=== PATIENT | male | born 1950 | race Hispanic/Latino ===

== ENCOUNTER 2021-02-02 15:56 | Emergency (ER) | payer MEDICARE, OTHER ==
--- NOTE | 2021-02-02 16:45 | Emergency Department Report ---
ED General Adult HPI - General Chief complaint: Dyspnea/Respdistress Stated complaint: LOW OXYGEN PUI?: No Time Seen by Provider: 02/02/21 16:15 Source: family Mode of arrival: Ambulatory Limitations: No Limitations, Other - History of Present Illness Initial comments: Patient is a 70-year-old male who presents emergency room with his correctional officer for low oxygen. Patient's correctional officer at bedside at all times. Patient is unable to answer questions or provide information due to his medical problems. Patient has history of dementia. Patient's correctional officer states that he has a small finger pulse oximetry that was reading 82%. Patient has retractions of his fingers which makes it difficult for the correctional officer to obtain an accurate pulse ox. Patient's pulse ox has been 99% to 800% while in the ER. Patient's correctional officer states he was brought in by EMS and EMS was unable to get their pulse ox on his finger due to his retractions. The correctional officer then called the patient's primary care and the primary care advised him to come to the local ER. Metal Solderer states that the patient is not having any shortness of breath or difficulties breathing. Metal Solderer denies recent travel And denies recent international travel. Metal Solderer denies exposure to the novel coronavirus. Metal Solderer denies sick contacts. Metal Solderer denies fever and chills. Metal Solderer denies cough. Metal Solderer denies diarrhea. Metal Solderer denies coming in contact with anybody with symptoms of the novel coronavirus. -: Sudden - Related Data Allergies Allergy/AdvReac Type Severity Reaction Status Date / Time hydralazine Allergy Vomiting Verified 02/02/21 15:58 tramadol Allergy Shortness Verified 02/02/21 15:58 of Breath ED Review of Systems ROS: Stated complaint: LOW OXYGEN Other details as noted in HPI Comment: Unobtainable due to pts medical conditions ED Past Medical Hx - Past Medical History Previous Medical History?: Yes Hx Hypertension: Yes Hx CVA: No Hx Congestive Heart Failure: Yes Hx Diabetes: Yes Hx Deep Vein Thrombosis: No Hx Arthritis: Yes (gout) Hx Seizures: No Hx Asthma: No Additional medical history: A FIB/CKD /LYMPATHIC EDEMA/NEUROPATHY/ ULCER DEMENTIA - Surgical History Past Surgical History?: No - Family History Family history: no significant - Social History Smoking Status: Never Smoker Substance Use Type: Alcohol ED Physical Exam - General Limitations: Altered Mental Status, Physical Limitation, Other General appearance: alert, in no apparent distress - Head Head exam: Present: atraumatic, normocephalic - Eye Eye exam: Present: normal appearance - ENT ENT exam: Present: mucous membranes moist - Neck Neck exam: Present: normal inspection - Respiratory Respiratory exam: Present: normal lung sounds bilaterally. Absent: respiratory distress - Cardiovascular Cardiovascular Exam: Present: regular rate, normal rhythm. Absent: systolic murmur, diastolic murmur, rubs, gallop - GI/Abdominal GI/Abdominal exam: Present: soft, normal bowel sounds - Rectal Rectal exam: Present: deferred - Extremities Exam Extremities exam: Present: normal inspection (Retractions of the hands and fingers and legs.) - Back Exam Back exam: Present: normal inspection - Neurological Exam Neurological exam: Present: alert, altered - Skin Skin exam: Present: warm, dry, intact, normal color. Absent: rash ED Course Vital Signs 02/02/21 16:01 Temperature 98.8 F Pulse Rate 74 Respiratory 22 Rate Blood Pressure 156/75 O2 Sat by Pulse 99 Oximetry - Reevaluation(s) Reevaluation #1: The correctional officer has the pulse ox with him. I applied the pulse ox on 2 the patient's finger and is unable to get an accurate reading. Patient on her monitor is showing 99% on room air. I tried all other fingers and the pulse ox was reading 82% however our pulse ox is showing 100%. Patient does not have any acute distress. Patient's lung sounds are clear. 02/02/21 16:15 Reevaluation #2: Patient was monitored the entire time in the ER. Patient has not had any signs of distress or hypoxia. Patient's vital signs and oxygen level have been stable. I discussed all clinical findings with correctional officer. I discussed plan of care with correctional officer. Metal Solderer agrees with plan of care. Patient is stable for discharge. Patient will be discharged home with correctional officer. Metal Solderer given discharge instructions. Metal Solderer voiced understanding of discharge instructions. 02/02/21 16:45 ED Medical Decision Making - Medical Decision Making Patient is a 70-year-old male that presents emergency room with complaints of hypoxia without any other symptoms. Patient is asymptomatic. Patient had a normal physical exam. Patient's correctional officer at bedside the entire time. Patient correctional officer brought his home pulse ox with him. I correlated the home pulse ox and a home pulse ox appears to be highly inaccurate. Patient's vital signs and oxygen level were monitored the entire time in the ER and the entire time the patient was in the ER, the patient's pulse ox was stable. Patient's oxygen level was 99% 200% the entire time in ER. Patient is not require any further emergency medical service. I instructed the correctional officer to get a different pulse ox that will fit onto the patient's contracted fingers. Discharge instructions were given to the correctional officer. Patient is stable for discharge. Patient will be discharged home with a correctional officer. - Differential Diagnosis Pulse ox error, vital signs error, hypoxia Critical care attestation.: If time is entered above; I have spent that time in minutes in the direct care of this critically ill patient, excluding procedure time. ED Disposition Clinical Impression: Hypoxia Disposition: DC-01 TO HOME OR SELFCARE Is pt being admited?: No Does the pt Need Aspirin: No Condition: Stable Instructions: Hypoxia Additional Instructions: Patient to follow-up with primary care in 2 to 3 days. Metal Solderer to obtain a more adequate pulse ox for the patient's finger contractions. Patient to rest. Patient to increase water. Patient to continue all medications. Patient to return to the ER if condition worsens, changes or new symptoms arise. Referrals: [facility] [Other] - 2-3 Days Time of Disposition: 16:49
[2021-02-02 16:51] VITALS: BP 125/65
== END 2021-02-02 17:00 | disposition home or self-care (01) ==
LOC: ED 15:56
DX: R09.02 Hypoxemia (principal); I11.0 Hypertensive heart disease with heart failure; I50.9 Heart failure, unspecified; M19.90 Unspecified osteoarthritis, unspecified site; F17.200 Nicotine dependence, unspecified, uncomplicated
CPT/HCPCS: 99282

== ENCOUNTER 2021-04-14 15:15 | Inpatient (IN) | payer OTHER, MEDICARE ==
[2021-04-14] MEDS ORDERED: SODIUM CHLORIDE 0.9% 500 ML 500 ML IV ONE (16:31)
[2021-04-14] MEDS ORDERED: PANTOPRAZOLE 40 MG INJ IV ONE (16:34)
--- NOTE | 2021-04-14 16:45 | Emergency Department Report ---
HPI - General Chief Complaint: Weakness Time Seen by Provider: 04/14/21 16:05 - HPI HPI: 70-year-old male presents to the emergency department via EMS from home with complaints of generalized weakness, right-sided rib pain, dark tarry stools, and some recent lab abnormalities. The patient usually follows up with the [facility]. He just had blood work done through his PCP that shows a hemoglobin of 6.7. Patient also recently had a UTI that cleared up after a 14- day course of antibiotics. He has a past medical history of CHF, diabetes, hypertension, atrial fibrillation, CKD stage III, lymphedema, neuropathy, right below-knee amputation, left foot ulcerating wound. The patient is a poor historian but his brother/mall plant caretaker is at bedside providing information. The patient is anticoagulated on Xarelto. ED Past Medical Hx - Past Medical History Hx Hypertension: Yes Hx CVA: No Hx Congestive Heart Failure: Yes Hx Diabetes: Yes Hx Deep Vein Thrombosis: No Hx Arthritis: Yes (gout) Hx Seizures: No Hx Asthma: No Additional medical history: A FIB/CKD /LYMPATHIC EDEMA/NEUROPATHY/ ULCER DEMENTIA - Social History Smoking Status: Unknown if ever smoked ED Review of Systems ROS: Stated complaint: WEAKNESS Other details as noted in HPI Comment: All other systems reviewed and negative Constitutional: weakness. denies: fever Eyes: denies: eye pain, vision change ENT: denies: ear pain, throat pain Respiratory: denies: cough, shortness of breath Cardiovascular: denies: palpitations, syncope Gastrointestinal: melena. denies: nausea, vomiting Genitourinary: hematuria. denies: dysuria, discharge Musculoskeletal: myalgia. denies: back pain Skin: lesions. denies: rash Neurological: denies: numbness, paresthesias Physical Exam - Physical Exam Vital Signs: Vital Signs 04/14/21 16:06 Temperature 97.4 F L Pulse Rate 74 Respiratory 18 Rate Blood Pressure 160/98 [Left] O2 Sat by Pulse 94 Oximetry Physical Exam: GENERAL: The patient is ill-appearing. HENT: Normocephalic. Atraumatic. Patient has moist mucous membranes. EYES: Extraocular motions are intact. Pupils equal reactive to light bilaterally. Pale conjunctiva. NECK: Supple. Trachea is midline. CHEST/LUNGS: Clear to auscultation. There is no respiratory distress noted. HEART/CARDIOVASCULAR: Irregular rhythm. Lar. There is no tachycardia. There is no murmur. ABDOMEN: Abdomen is soft, nontender. Patient has normal bowel sounds. There is no abdominal distention. SKIN: Skin is warm and dry. Pale appearing skin. NEURO: The patient is awake, alert, and delete cooperative. The patient has no focal neurologic deficits. Normal speech. MUSCULOSKELETAL: There is no tenderness or deformity. RECTAL: Gross melena. ED Course Vital Signs 04/14/21 16:06 Temperature 97.4 F L Pulse Rate 74 Respiratory 18 Rate Blood Pressure 160/98 [Left] O2 Sat by Pulse 94 Oximetry - Consultations Consultation #1: 04/14/21 18:13 Spoke to the mold loft worker on-call, Dr. Hutson. He says that they will try to do the EGD tomorrow. Nothing by mouth after midnight. Hold the Xarelto. No need for a Protonix drip but recommends twice daily dosing. ED Medical Decision Making - Lab Data Result diagrams: 04/14/21 16:51 04/14/21 16:51 Lab Results 04/14/21 04/14/21 04/14/21 Range/Units 16:51 16:51 16:51 WBC 7.4 (4.5-11.0) K/mm3 RBC 2.57 L (3.65-5.03) M/mm3 Hgb 7.5 L (11.8-15.2) gm/dl Hct 23.0 L (35.5-45.6) % MCV 90 (84-94) fl MCH 29 (28-32) pg MCHC 33 (32-34) % RDW 17.1 H (13.2-15.2) % Plt Count 215 (140-440) K/mm3 Lymph % (Auto) 16.6 (13.4-35.0) % [place] % (Auto) 10.1 H (0.0-7.3) % Eos % (Auto) 3.5 (0.0-4.3) % Baso % (Auto) 0.4 (0.0-1.8) % Lymph # (Auto) 1.2 (1.2-5.4) K/mm3 [place] # (Auto) 0.8 (0.0-0.8) K/mm3 Eos # (Auto) 0.3 (0.0-0.4) K/mm3 Baso # (Auto) 0.0 (0.0-0.1) K/mm3 Seg Neutrophils % 69.4 (40.0-70.0) % Seg Neutrophils # 5.2 (1.8-7.7) K/mm3 PT 24.7 H (12.2-14.9) Sec. INR 2.21 H (0.87-1.13) APTT 49.7 H (24.2-36.6) Sec. Sodium 138 (137-145) mmol/L Potassium 4.5 (3.6-5.0) mmol/L Chloride 103.6 (98-107) mmol/L Carbon Dioxide 24 (22-30) mmol/L Anion Gap 15 mmol/L BUN 31 H (9-20) mg/dL Creatinine 1.4 H (0.8-1.3) mg/dL Estimated GFR 50 ml/min BUN/Creatinine Ratio 22 % Glucose 132 H (75-100) mg/dL Calcium 7.8 L (8.4-10.2) mg/dL Total Bilirubin 0.40 (0.1-1.2) mg/dL AST 15 (5-40) units/L ALT 15 (7-56) units/L Alkaline Phosphatase 85 (35-129) units/L Total Creatine Kinase (55-170) units/L Total Protein 5.9 L (6.3-8.2) g/dL Albumin 2.1 L (3.9-5) g/dL Albumin/Globulin Ratio 0.6 % TSH (0.270-4.200) mlU/mL Urine Color (Yellow) Urine Turbidity (Clear) Urine pH (5.0-7.0) Ur Specific [place] (1.003-1.030) Urine Protein (Negative) mg/dL Urine Glucose (UA) (Negative) mg/dL Urine Ketones (Negative) mg/dL Urine Blood (Negative) Urine Nitrite (Negative) Urine Bilirubin (Negative) Urine Urobilinogen (<2.0) mg/dL Ur Leukocyte Esterase (Negative) Urine WBC (Auto) (0.0-6.0) /HPF Urine RBC (Auto) (0.0-6.0) /HPF U Epithel Cells (Auto) (0-13.0) /HPF Urine Bacteria (Auto) (Negative) /HPF Hyaline Casts /LPF Urine Mucus /HPF Urine Yeast (Budding) /HPF Blood Type 04/14/21 04/14/21 04/14/21 Range/Units 16:51 16:51 16:51 WBC (4.5-11.0) K/mm3 RBC (3.65-5.03) M/mm3 Hgb (11.8-15.2) gm/dl Hct (35.5-45.6) % MCV (84-94) fl MCH (28-32) pg MCHC (32-34) % RDW (13.2-15.2) % Plt Count (140-440) K/mm3 Lymph % (Auto) (13.4-35.0) % [place] % (Auto) (0.0-7.3) % Eos % (Auto) (0.0-4.3) % Baso % (Auto) (0.0-1.8) % Lymph # (Auto) (1.2-5.4) K/mm3 [place] # (Auto) (0.0-0.8) K/mm3 Eos # (Auto) (0.0-0.4) K/mm3 Baso # (Auto) (0.0-0.1) K/mm3 Seg Neutrophils % (40.0-70.0) % Seg Neutrophils # (1.8-7.7) K/mm3 PT (12.2-14.9) Sec. INR (0.87-1.13) APTT (24.2-36.6) Sec. Sodium (137-145) mmol/L Potassium (3.6-5.0) mmol/L Chloride (98-107) mmol/L Carbon Dioxide (22-30) mmol/L Anion Gap mmol/L BUN (9-20) mg/dL Creatinine (0.8-1.3) mg/dL Estimated GFR ml/min BUN/Creatinine Ratio % Glucose (75-100) mg/dL Calcium (8.4-10.2) mg/dL Total Bilirubin (0.1-1.2) mg/dL AST (5-40) units/L ALT (7-56) units/L Alkaline Phosphatase (35-129) units/L Total Creatine Kinase 23 L (55-170) units/L Total Protein (6.3-8.2) g/dL Albumin (3.9-5) g/dL Albumin/Globulin Ratio % TSH 2.290 (0.270-4.200) mlU/mL Urine Color (Yellow) Urine Turbidity (Clear) Urine pH (5.0-7.0) Ur Specific [place] (1.003-1.030) Urine Protein (Negative) mg/dL Urine Glucose (UA) (Negative) mg/dL Urine Ketones (Negative) mg/dL Urine Blood (Negative) Urine Nitrite (Negative) Urine Bilirubin (Negative) Urine Urobilinogen (<2.0) mg/dL Ur Leukocyte Esterase (Negative) Urine WBC (Auto) (0.0-6.0) /HPF Urine RBC (Auto) (0.0-6.0) /HPF U Epithel Cells (Auto) (0-13.0) /HPF Urine Bacteria (Auto) (Negative) /HPF Hyaline Casts /LPF Urine Mucus /HPF Urine Yeast (Budding) /HPF Blood Type A POSITIVE 04/14/21 Range/Units 16:58 WBC (4.5-11.0) K/mm3 RBC (3.65-5.03) M/mm3 Hgb (11.8-15.2) gm/dl Hct (35.5-45.6) % MCV (84-94) fl MCH (28-32) pg MCHC (32-34) % RDW (13.2-15.2) % Plt Count (140-440) K/mm3 Lymph % (Auto) (13.4-35.0) % [place] % (Auto) (0.0-7.3) % Eos % (Auto) (0.0-4.3) % Baso % (Auto) (0.0-1.8) % Lymph # (Auto) (1.2-5.4) K/mm3 [place] # (Auto) (0.0-0.8) K/mm3 Eos # (Auto) (0.0-0.4) K/mm3 Baso # (Auto) (0.0-0.1) K/mm3 Seg Neutrophils % (40.0-70.0) % Seg Neutrophils # (1.8-7.7) K/mm3 PT (12.2-14.9) Sec. INR (0.87-1.13) APTT (24.2-36.6) Sec. Sodium (137-145) mmol/L Potassium (3.6-5.0) mmol/L Chloride (98-107) mmol/L Carbon Dioxide (22-30) mmol/L Anion Gap mmol/L BUN (9-20) mg/dL Creatinine (0.8-1.3) mg/dL Estimated GFR ml/min BUN/Creatinine Ratio % Glucose (75-100) mg/dL Calcium (8.4-10.2) mg/dL Total Bilirubin (0.1-1.2) mg/dL AST (5-40) units/L ALT (7-56) units/L Alkaline Phosphatase (35-129) units/L Total Creatine Kinase (55-170) units/L Total Protein (6.3-8.2) g/dL Albumin (3.9-5) g/dL Albumin/Globulin Ratio % TSH (0.270-4.200) mlU/mL Urine Color Yellow (Yellow) Urine Turbidity Slightly-cloudy (Clear) Urine pH 5.0 (5.0-7.0) Ur Specific [place] 1.015 (1.003-1.030) Urine Protein 100 mg/dl (Negative) mg/dL Urine Glucose (UA) Neg (Negative) mg/dL Urine Ketones Neg (Negative) mg/dL Urine Blood Sm (Negative) Urine Nitrite Neg (Negative) Urine Bilirubin Neg (Negative) Urine Urobilinogen < 2.0 (<2.0) mg/dL Ur Leukocyte Esterase Tr (Negative) Urine WBC (Auto) 8.0 H (0.0-6.0) /HPF Urine RBC (Auto) 58.0 (0.0-6.0) /HPF U Epithel Cells (Auto) 1.0 (0-13.0) /HPF Urine Bacteria (Auto) 2+ (Negative) /HPF Hyaline Casts 4 /LPF Urine Mucus Few /HPF Urine Yeast (Budding) 3+ /HPF Blood Type - EKG Data -: EKG Interpreted by Me - EKG Data When compared to previous EKG there are: previous EKG unavailable Interpretation: other (Atrial fibrillation with a rate of 76 bpm, left axis deviation, Q waves to the inferior and anterior leads. No ST elevation NV) - Radiology Data Radiology results: image reviewed interpreted by me: Chest x-ray does not show any acute process. There are no pleural effusions, obvious pneumonia and there is no pneumothorax. No widened mediastinum. Abdominal x-ray shows nonspecific nonobstructive bowel gas. No free air. - Medical Decision Making This patient presents to the emergency department with a complaint of generalized weakness and fatigue, melanotic stool, and some recent lab abnormalities showing significant anemia. On examination the patient does appear pale and is ill-appearing. He has gross melena. Vital signs have been reassuring throughout his ED course including being afebrile. Patient's hemoglobin today is at 7.5 which is slightly increased from his recent labs. The patient's chronic kidney disease actually appears improved as he is usually stage III and currently his GFR is 50. Patient is on Xarelto which usually does not affect the coags, but the patient has an INR of 2.2. Patient was given a dose of IV Protonix for this suspected upper GI bleed. I spoke to gastroenterology who will consult on the patient and will most likely do an EGD tomorrow. Recommendations have been placed in the chart. Patient has been accepted for admission by the hospitalist, Dr. Tovar. Critical Care Time: No Critical care attestation.: If time is entered above; I have spent that time in minutes in the direct care of this critically ill patient, excluding procedure time. ED Disposition Clinical Impression: Upper GI bleed, Anticoagulated, Melena Atrial fibrillation Qualifiers: Atrial fibrillation type: unspecified Qualified Code(s): I48.91 - Unspecified atrial fibrillation Anemia Qualifiers: Anemia type: unspecified type Qualified Code(s): D64.9 - Anemia, unspecified Disposition: -09 OP ADMIT IP TO THIS HOSP Is pt being admited?: Yes Condition: Serious Time of Disposition: 18:51
[2021-04-14 17:15] LABS: Bacteria,Urine 2+ /HPF (Negative); Bilirubin,Urine NEG (Negative); Blood,Urine SM (Negative); Color,Urine Yellow (Yellow); Hyaline Casts,Urine 4 /LPF; Mucus,Urine FEW /HPF; Urobilinogen,Urine < 2.0 mg/dL (<2.0)
[2021-04-14 17:21] LABS: INR 2.21 (0.87-1.13)
[2021-04-14 17:22] LABS: Partial Thromboplastin Time 49.7 Sec. (24.2-36.6)
[2021-04-14 17:28] LABS: Basophils % (Auto) 0.4 % (0.0-1.8); Eosinophils # (Auto) 0.3 K/mm3 (0.0-0.4); Eosinophils % (Auto) 3.5 % (0.0-4.3); Hemoglobin 7.5 gm/dl (11.8-15.2); Lymphocytes # (Auto) 1.2 K/mm3 (1.2-5.4); Lymphocytes % (Auto) 16.6 % (13.4-35.0); Mean Corpuscular HGB Conc 33 % (32-34); Mean Corpuscular Volume 90 fl (84-94); Monocytes # (Auto) 0.8 K/mm3 (0.0-0.8); Monocytes % (Auto) 10.1 % (0.0-7.3); Platelet Count 215 K/mm3 (140-440); Red Blood Count 2.57 M/mm3 (3.65-5.03); Red Cell Distribution Width 17.1 % (13.2-15.2)
[2021-04-14 17:31] LABS: Albumin 2.1 g/dL (3.9-5); Calcium 7.8 mg/dL (8.4-10.2)
--- NOTE | 2021-04-14 17:45 | XRay Report ---
ABDOMEN 3 VIEW(S) INCLUDING CHEST INDICATION / CLINICAL INFORMATION: rib pain, abd pain. COMPARISON: None available. FINDINGS: SUPPORT DEVICES: None. HEART / MEDIASTINUM: No significant abnormality. LUNGS / PLEURA: Prominent bronchovascular markings are present. No significant pulmonary or pleural a bnormality. No pneumothorax BOWEL: No dilated bowel. FREE AIR / EXTRALUMINAL GAS: None seen. CALCIFICATIONS: No significant abnormal calcifications. SKELETAL STRUCTURES: No significant abnormality. IMPRESSION: 1. No significant abnormality. Signer Name: Tony Alcazar MD Signed: 04/14/2021 5:41 PM Workstation Name: [id number]
[2021-04-14] MEDS ORDERED: ACETAMINOPHEN 325 MG TAB PO PRN (18:21)
[2021-04-14] MEDS ORDERED: ONDANSETRON 4 MG/2 ML INJ IV PRN (18:21)
--- NOTE | 2021-04-14 18:23 | History and Physical Report ---
History of Present Illness Chief complaint: I feel weak History of present illness: 70 YO Male with HTN, CHF, DM, OA, Atrial Fib on Therapeutic Anticoagulation, Vascular Dementia, Cerebral Atherosclerosis presents to ED for evaluation. Patient reports "I feel weak". Patient has diminished cognition and provides minimal history. Patient brother is at bedside during exam and interview and provides history. Patient brother reports dark tarry stools, generalized weakness. Patient was seen and evaluated by his primary care physician found to have a hemoglobin of 6.7. EMS was notified and upon arrival the patient was found to be in distress and subsequently transported to [facility] for further care and evaluation of the aforementioned symptoms. The patient was seen and evaluated in the emergency department. All lab and imaging studies reviewed. Patient was found to be Hemoccult positive with clinical symptoms consistent with GI bleed. Patient admitted to medical floor for further care and evaluation. GI team consulted in ED. No reports of fever, chills, chest pain, palpitation, productive cough, skin rash, recent ill contacts, or known exposure to COVID-19. No prior admission for review. All medication listed at time of admission has been reconciled. Advanced care planning conducted in ED. Past History Past Medical History: atrial fib, anemia, diabetes, heart failure, hypertension Past Surgical History: No surgical history, Other (Reviewed) Social history: single. denies: smoking, alcohol abuse, prescription drug abuse Family history: hypertension Medications and Allergies Allergies Allergy/AdvReac Type Severity Reaction Status Date / Time hydralazine Allergy Vomiting Verified 02/02/21 15:58 isosorbide [From Imdur] Allergy Unknown Verified 04/14/21 16:03 tramadol Allergy Shortness Verified 02/02/21 15:58 of Breath Active Meds: Active Medications Acetaminophen (Acetaminophen 325 Mg Tab) 650 mg PO Q4H PRN PRN Reason: Pain MILD(1-3)/Fever >100.5/ALANIS Ondansetron HCl (Ondansetron 4 Mg/2 Ml Inj) 4 mg IV Q8H PRN PRN Reason: Nausea And Vomiting Sodium Chloride (Sodium Chloride 0.9% 10 Ml Flush Syringe) 10 ml IV BID NATALIA Sodium Chloride (Sodium Chloride 0.9% 10 Ml Flush Syringe) 10 ml IV PRN PRN PRN Reason: LINE FLUSH Review of Systems ROS unobtainable: due to mental status Exam - Constitutional Vitals: Temp Pulse Resp BP Pulse Ox 97.4 F L 74 18 160/98 94 04/14/21 16:06 04/14/21 16:06 04/14/21 16:06 04/14/21 16:06 04/14/21 16:06 General appearance: Present: mild distress - EENT Eyes: Present: PERRL ENT: hearing intact, clear oral mucosa - Neck Neck: Present: supple, normal ROM - Respiratory Respiratory effort: normal Respiratory: bilateral: CTA - Cardiovascular Heart Sounds: Present: S1 & S2. Absent: rub, click - Extremities Extremities: pulses symmetrical, No edema Peripheral Pulses: within normal limits - Abdominal General gastrointestinal: Present: soft, non-tender, non-distended, normal bowel sounds Male genitourinary: Present: normal - Musculoskeletal Musculoskeletal: generalized weakness - Psychiatric Psychiatric: no appropriate mood/affect, no intact judgment & insight - Neurologic Neurologic: CNII-XII intact, no focal deficits, moves all extremities, no gait normal Results - Labs CBC & Chem 7: 04/14/21 16:51 04/14/21 16:51 Labs: Abnormal lab results 04/14/21 04/14/21 04/14/21 Range/Units 16:51 16:51 16:51 RBC 2.57 L (3.65-5.03) M/mm3 Hgb 7.5 L (11.8-15.2) gm/dl Hct 23.0 L (35.5-45.6) % RDW 17.1 H (13.2-15.2) % [place] % (Auto) 10.1 H (0.0-7.3) % PT 24.7 H (12.2-14.9) Sec. INR 2.21 H (0.87-1.13) APTT 49.7 H (24.2-36.6) Sec. BUN 31 H (9-20) mg/dL Creatinine 1.4 H (0.8-1.3) mg/dL Glucose 132 H (75-100) mg/dL Calcium 7.8 L (8.4-10.2) mg/dL Total Creatine Kinase (55-170) units/L Total Protein 5.9 L (6.3-8.2) g/dL Albumin 2.1 L (3.9-5) g/dL Urine WBC (Auto) (0.0-6.0) /HPF 04/14/21 04/14/21 Range/Units 16:51 16:58 RBC (3.65-5.03) M/mm3 Hgb (11.8-15.2) gm/dl Hct (35.5-45.6) % RDW (13.2-15.2) % [place] % (Auto) (0.0-7.3) % PT (12.2-14.9) Sec. INR (0.87-1.13) APTT (24.2-36.6) Sec. BUN (9-20) mg/dL Creatinine (0.8-1.3) mg/dL Glucose (75-100) mg/dL Calcium (8.4-10.2) mg/dL Total Creatine Kinase 23 L (55-170) units/L Total Protein (6.3-8.2) g/dL Albumin (3.9-5) g/dL Urine WBC (Auto) 8.0 H (0.0-6.0) /HPF Assessment and Plan - Patient Problems (1) Upper GI bleed Current Visit: Yes Status: Acute Plan to address problem: PPI therapy, supportive care, CBC, GI team consulted, further care and evaluation as per GI team. (2) Blood loss anemia Current Visit: Yes Status: Acute Plan to address problem: supportive care, repeat CBC in a.m. (3) Atrial fibrillation Current Visit: Yes Status: Acute Qualifiers: Atrial fibrillation type: unspecified Qualified Code(s): I48.91 - Unspecified atrial fibrillation Plan to address problem: Rate control, hold anticoagulation now, (4) DVT prophylaxis Current Visit: Yes Status: Acute Plan to address problem: SCD to bilateral lower extremities while in bed hold anticoagulation at this time due to GI bleed (5) Advance care planning Current Visit: Yes Status: Acute Plan to address problem: Disease education conducted, care plan discussed, diagnosis discussed, prognosis discussed, patient brother acknowledges understanding and agreement with care plan, +30 minutes.
[2021-04-14] MEDS: PANTOPRAZOLE 40 MG INJ IV SCH (21:06)
[2021-04-15] MEDS ORDERED: D5W/0.45% NACL 1,000 ML IV SCH (01:00)
[2021-04-15] MEDS ORDERED: METOPROLOL TARTRATE 5 MG/5 ML INJ IV ONE (01:41)
[2021-04-15] MEDS: INSULIN LISPRO 100 UNIT/ML SUB-Q SCH ×2 (06:21→13:46)
[2021-04-15] MEDS: PANTOPRAZOLE 40 MG INJ IV SCH ×2 (09:59→21:49)
--- NOTE | 2021-04-15 10:33 | Consultation ---
History of Present Illness - Reason for Consult Consult date: 04/15/21 GI bleed Requesting physician: EVER MAGALLON - History of Present Illness Karl West is a 70-year-old man with vascular dementia, atrial fibrillation, diabetes, left foot wound, right BKA, and bedridden x3 months due to back pain and neuropathy, on Xarelto for atrial fibrillation according to the brother Ismael West, from whom this history is obtained. [facility] and told that the hemoglobin was 6.7 and advised to go to the hospital. Brother states he has been having dark tarry stools for approximately a month. However, patient has been on aspirin. Patient has had some issues with constipation. Otherwise, there has been no complaints of abdominal discomfort nausea vomiting or chema GI bleeding other than the dark stools. Brother states that patient last had a hemoglobin of 8.6 [facility]. Patient is unable to give a history. Meds reviewed Past History Past Medical History: atrial fib, anemia, diabetes, heart failure, hypertension, other (Vascular dementia, Neuropathy - on gabapentin x 3 months) Past Surgical History: No surgical history, Other (R BKA) Social history: single. denies: smoking, alcohol abuse, prescription drug abuse Family history: hypertension Medications and Allergies Allergies Allergy/AdvReac Type Severity Reaction Status Date / Time hydralazine Allergy Vomiting Verified 02/02/21 15:58 isosorbide [From Imdur] Allergy Unknown Verified 04/14/21 16:03 tramadol Allergy Shortness Verified 02/02/21 15:58 of Breath Active Meds: Active Medications Acetaminophen (Acetaminophen 325 Mg Tab) 650 mg PO Q4H PRN PRN Reason: Pain MILD(1-3)/Fever >100.5/ALANIS Dextrose/Sodium Chloride (D5/0.45ns) 1,000 mls @ 50 mls/hr IV DIRECT NATALIA Last Admin: 04/15/21 01:12 Dose: 50 mls/hr Documented by: Insulin Human Lispro (Insulin Lispro 100 Unit/Ml) 0 unit SUB-Q Q6HR NATALIA; Protocol Last Admin: 04/15/21 06:21 Dose: Not Given Documented by: Ondansetron HCl (Ondansetron 4 Mg/2 Ml Inj) 4 mg IV Q8H PRN PRN Reason: Nausea And Vomiting Pantoprazole Sodium (Pantoprazole 40 Mg Inj) 40 mg IV BID [facility] Last Admin: 04/15/21 09:59 Dose: 40 mg Documented by: Sodium Chloride (Sodium Chloride 0.9% 10 Ml Flush Syringe) 10 ml IV BID [facility] Last Admin: 04/15/21 09:58 Dose: 10 ml Documented by: Sodium Chloride (Sodium Chloride 0.9% 10 Ml Flush Syringe) 10 ml IV PRN PRN PRN Reason: LINE FLUSH Last Admin: 04/15/21 01:12 Dose: 10 ml Documented by: Review of Systems ROS unobtainable: due to mental status Exam - Constitutional Vitals: Temp Pulse Resp BP Pulse Ox 98.2 F 75 20 175/45 97 04/15/21 05:17 04/15/21 05:17 04/15/21 05:17 04/15/21 05:17 04/15/21 05:17 General appearance: Present: no acute distress - EENT Eyes: Present: PERRL, EOM intact ENT: hearing intact - Respiratory Respiratory effort: normal Respiratory: bilateral: CTA (anteriorly) - Cardiovascular Rhythm: irregularly irregular Heart Sounds: Present: S1 & S2 - Extremities Extremity abnormal: other (R BKA) Results - Labs CBC & Chem 7: 04/14/21 16:51 04/14/21 16:51 Labs: Abnormal lab results 04/14/21 04/14/21 04/14/21 Range/Units 16:51 16:51 16:51 RBC 2.57 L (3.65-5.03) M/mm3 Hgb 7.5 L (11.8-15.2) gm/dl Hct 23.0 L (35.5-45.6) % RDW 17.1 H (13.2-15.2) % [place] % (Auto) 10.1 H (0.0-7.3) % PT 24.7 H (12.2-14.9) Sec. INR 2.21 H (0.87-1.13) APTT 49.7 H (24.2-36.6) Sec. BUN 31 H (9-20) mg/dL Creatinine 1.4 H (0.8-1.3) mg/dL Glucose 132 H (75-100) mg/dL POC Glucose (70-105) mg/dL Calcium 7.8 L (8.4-10.2) mg/dL Total Creatine Kinase (55-170) units/L Total Protein 5.9 L (6.3-8.2) g/dL Albumin 2.1 L (3.9-5) g/dL Urine WBC (Auto) (0.0-6.0) /HPF 04/14/21 04/14/21 04/14/21 Range/Units 16:51 16:58 21:48 RBC (3.65-5.03) M/mm3 Hgb (11.8-15.2) gm/dl Hct (35.5-45.6) % RDW (13.2-15.2) % [place] % (Auto) (0.0-7.3) % PT (12.2-14.9) Sec. INR (0.87-1.13) APTT (24.2-36.6) Sec. BUN (9-20) mg/dL Creatinine (0.8-1.3) mg/dL Glucose (75-100) mg/dL POC Glucose 131 H (70-105) mg/dL Calcium (8.4-10.2) mg/dL Total Creatine Kinase 23 L (55-170) units/L Total Protein (6.3-8.2) g/dL Albumin (3.9-5) g/dL Urine WBC (Auto) 8.0 H (0.0-6.0) /HPF 04/15/21 Range/Units 05:45 RBC (3.65-5.03) M/mm3 Hgb (11.8-15.2) gm/dl Hct (35.5-45.6) % RDW (13.2-15.2) % [place] % (Auto) (0.0-7.3) % PT (12.2-14.9) Sec. INR (0.87-1.13) APTT (24.2-36.6) Sec. BUN (9-20) mg/dL Creatinine (0.8-1.3) mg/dL Glucose (75-100) mg/dL POC Glucose 127 H (70-105) mg/dL Calcium (8.4-10.2) mg/dL Total Creatine Kinase (55-170) units/L Total Protein (6.3-8.2) g/dL Albumin (3.9-5) g/dL Urine WBC (Auto) (0.0-6.0) /HPF Assessment and Plan 1. Anemia, Hemoccult positive stool -black stool may be reflective of GI bleeding or of iron, especially as patient's brother states he has noted it for approximately a month. However, given that patient is on Xarelto, we need to exclude GI source of bleeding and especially an upper source. This is because the BUN creatinine ratio reflects either volume depletion or GI blood loss. Patient may well have a lower GI source of bleeding as well. -We will do upper endoscopy -Hold Xarelto -If upper endoscopy unrevealing, would discharge off Xarelto once hemoglobin is stable, and have patient get outpatient colonoscopy with [facility] -Monitor H&H and transfuse as needed Plan discussed with patient's brother, Ismael West.
--- NOTE | 2021-04-15 10:35 | Anesthesia Consultation ---
Anesthesia Consult and Med Hx Date of service: 04/15/21 - Airway Anesthetic Teeth Evaluation: Poor (multiple broke missing teeth) ROM Head & Neck: Adequate Mallampati Class: Class II Intubation Access Assessment: Probably Good - Pre-Operative Health Status ASA Pre-Surgery Classification: ASA3 Proposed Anesthetic Plan: MAC - Pulmonary Hx Asthma: No - Cardiovascular System Hx Hypertension: Yes Hx Coronary Artery Disease: No (CHF) Hx Cardia Arrhythmia: Yes (atrial fibrillation, on therapeutic anticoagulation) - Central Nervous System Hx Seizures: No Hx Back Pain: Yes (osteoarthritis) Hx Psychiatric Problems: Yes (vascular dementia) - Gastrointestinal Hx Ulcer: Yes (GI bleed) Hx Gastroesophageal Reflux Disease: Yes - Endocrine Hx Insulin Dependent Diabetes: No Hx Thyroid Disease: No - Hematic Hx Anemia: Yes
--- NOTE | 2021-04-15 10:38 | Anesthesia Day of Surgery ---
Anesthesia Day of Surgery - Day of Surgery Patient Examined: Yes Patient H&P Reviewed: Yes Patient is NPO: Yes
[2021-04-15] MEDS ORDERED: SODIUM CHLORIDE 0.9% 1000 ML 1,000 ML ONE (12:15)
[2021-04-15] MEDS ORDERED: SODIUM CHLORIDE 0.9% 1000 ML 1,000 ML IV SCH (12:25)
[2021-04-15] MEDS ORDERED: propofoL 200 MG/20 ML VIAL IV ONE (12:28)
--- NOTE | 2021-04-15 12:49 | Progress Note ---
Assessment and Plan Assessment and plan: 70 YO Male with HTN, CHF, DM, OA, Atrial Fib on Therapeutic Anticoagulation, Vascular Dementia, Cerebral Atherosclerosis presents to ED for evaluation. Patient reports "I feel weak". Patient has diminished cognition and provides minimal history. Patient brother is at bedside during exam and interview and provides history. Patient brother reports dark tarry stools, generalized weakness. Patient was seen and evaluated by his primary care physician found to have a hemoglobin of 6.7. EMS was notified and upon arrival the patient was found to be in distress and subsequently transported to [facility] for further care and evaluation of the aforementioned symptoms. The patient was seen and evaluated in the emergency department. All lab and imaging studies reviewed. Patient was found to be Hemoccult positive with clinical symptoms consistent with GI bleed. Patient admitted to medical floor for further care and evaluation. GI team consulted in ED. No reports of fever, chills, chest pain, palpitation, produ ctive cough, skin rash, recent ill contacts, or known exposure to COVID-19. No prior admission for review. All medication listed at time of admission has been reconciled. Advanced care planning conducted in ED. (1) Upper GI bleed Current Visit: Yes Status: Acute Plan to address problem: PPI therapy, supportive care, CBC, GI team consulted, further care and evaluation as per GI team. S/P endoscopy Pre-op diagnosis: GI bleed Post-op diagnosis: other (Hiatal hernia, erosive esophagitis, possibly Gastelum's esophagus) Findings: 1. [place]-colored mucosa from 37 to 40 cm from gums with few erosions distally. 2. 4 cm hiatal hernia. 3. Otherwise normal EGD with no evidence of bleeding. Rectal exam shows grainy black stool, no obvious blood. Procedure: EGD Anesthesia: MAC Surgeon: YUMI ROSALES Estimated blood loss: none Pathology: none Condition: stable Disposition: floor (Chronic PPI. Monitor H/H and transfuse if needed. Would stop Xarelto, and if stable, discharge with follow up with his [facility] doctors. Pt may need colonoscopy as outpatient if remains stable.) This finding discussed with family- Brother to coordinate with GI and cardiology at the [place] next week (2) Blood loss anemia Current Visit: Yes Status: Acute Plan to address problem: supportive care, repeat CBC in a.m. 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 History Interval history: Patient seen and examined, Brother at bedside, all questions answered, Post EGD Hospitalist Physical - Physical exam Narrative exam: General appearance: Present: No distress, chronically debilitated - EENT Eyes: Present: PERRL ENT: hearing intact, clear oral mucosa - Neck Neck: Present: supple, normal ROM - Respiratory Respiratory effort: normal Respiratory: bilateral: CTA - Cardiovascular Heart Sounds: Present: S1 & S2. Absent: rub, click - Extremities Extremities: pulses symmetrical, No edema Peripheral Pulses: within normal limits - Abdominal General gastrointestinal: Present: soft, non-tender, non-distended, normal bowel sounds Male genitourinary: Present: normal - Musculoskeletal Musculoskeletal: generalized weakness - Psychiatric Psychiatric: no appropriate mood/affect, no intact judgment & insight - Neurologic Neurologic: CNII-XII intact, no focal deficits, moves all extremities, no gait normal - Constitutional Vitals: Temp Pulse Resp BP Pulse Ox 98.2 F 75 20 175/45 97 04/15/21 05:17 04/15/21 05:17 04/15/21 05:17 04/15/21 05:17 04/15/21 05:17 General appearance: Present: no acute distress Results - Labs CBC & Chem 7: 04/14/21 16:51 04/14/21 16:51 Labs: Laboratory Last Values WBC 7.4 K/mm3 (4.5-11.0) 04/14/21 16:51 RBC 2.57 M/mm3 (3.65-5.03) L 04/14/21 16:51 Hgb 7.5 gm/dl (11.8-15.2) L 04/14/21 16:51 Hct 23.0 % (35.5-45.6) L 04/14/21 16:51 MCV 90 fl (84-94) 04/14/21 16:51 MCH 29 pg (28-32) 04/14/21 16:51 MCHC 33 % (32-34) 04/14/21 16:51 RDW 17.1 % (13.2-15.2) H 04/14/21 16:51 Plt Count 215 K/mm3 (140-440) 04/14/21 16:51 Lymph % (Auto) 16.6 % (13.4-35.0) 04/14/21 16:51 [place] % (Auto) 10.1 % (0.0-7.3) H 04/14/21 16:51 Eos % (Auto) 3.5 % (0.0-4.3) 04/14/21 16:51 Baso % (Auto) 0.4 % (0.0-1.8) 04/14/21 16:51 Lymph # (Auto) 1.2 K/mm3 (1.2-5.4) 04/14/21 16:51 [place] # (Auto) 0.8 K/mm3 (0.0-0.8) 04/14/21 16:51 Eos # (Auto) 0.3 K/mm3 (0.0-0.4) 04/14/21 16:51 Baso # (Auto) 0.0 K/mm3 (0.0-0.1) 04/14/21 16:51 Seg Neutrophils % 69.4 % (40.0-70.0) 04/14/21 16:51 Seg Neutrophils # 5.2 K/mm3 (1.8-7.7) 04/14/21 16:51 PT 24.7 Sec. (12.2-14.9) H 04/14/21 16:51 INR 2.21 (0.87-1.13) H 04/14/21 16:51 APTT 49.7 Sec. (24.2-36.6) H 04/14/21 16:51 Sodium 138 mmol/L (137-145) 04/14/21 16:51 Potassium 4.5 mmol/L (3.6-5.0) 04/14/21 16:51 Chloride 103.6 mmol/L (98-107) 04/14/21 16:51 Carbon Dioxide 24 mmol/L (22-30) 04/14/21 16:51 Anion Gap 15 mmol/L 04/14/21 16:51 BUN 31 mg/dL (9-20) H 04/14/21 16:51 Creatinine 1.4 mg/dL (0.8-1.3) H 04/14/21 16:51 Estimated GFR 50 ml/min 04/14/21 16:51 BUN/Creatinine Ratio 22 % 04/14/21 16:51 Glucose 132 mg/dL (75-100) H 04/14/21 16:51 POC Glucose 127 mg/dL (70-105) H 04/15/21 05:45 Calcium 7.8 mg/dL (8.4-10.2) L 04/14/21 16:51 Total Bilirubin 0.40 mg/dL (0.1-1.2) 04/14/21 16:51 AST 15 units/L (5-40) 04/14/21 16:51 ALT 15 units/L (7-56) 04/14/21 16:51 Alkaline Phosphatase 85 units/L (35-129) 04/14/21 16:51 Total Creatine Kinase 23 units/L (55-170) L 04/14/21 16:51 Total Protein 5.9 g/dL (6.3-8.2) L 04/14/21 16:51 Albumin 2.1 g/dL (3.9-5) L 04/14/21 16:51 Albumin/Globulin Ratio 0.6 % 04/14/21 16:51 TSH 2.290 mlU/mL (0.270-4.200) 04/14/21 16:51 Urine Color Yellow (Yellow) 04/14/21 16:58 Urine Turbidity Slightly-cloudy (Clear) 04/14/21 16:58 Urine pH 5.0 (5.0-7.0) 04/14/21 16:58 Ur Specific [place] 1.015 (1.003-1.030) 04/14/21 16:58 Urine Protein 100 mg/dl mg/dL (Negative) 04/14/21 16:58 Urine Glucose (UA) Neg mg/dL (Negative) 04/14/21 16:58 Urine Ketones Neg mg/dL (Negative) 04/14/21 16:58 Urine Blood Sm (Negative) 04/14/21 16:58 Urine Nitrite Neg (Negative) 04/14/21 16:58 Urine Bilirubin Neg (Negative) 04/14/21 16:58 Urine Urobilinogen < 2.0 mg/dL (<2.0) 04/14/21 16:58 Ur Leukocyte Esterase Tr (Negative) 04/14/21 16:58 Urine WBC (Auto) 8.0 /HPF (0.0-6.0) H 04/14/21 16:58 Urine RBC (Auto) 58.0 /HPF (0.0-6.0) 04/14/21 16:58 U Epithel Cells (Auto) 1.0 /HPF (0-13.0) 04/14/21 16:58 Urine Bacteria (Auto) 2+ /HPF (Negative) 04/14/21 16:58 Hyaline Casts 4 /LPF 04/14/21 16:58 Urine Mucus Few /HPF 04/14/21 16:58 Urine Yeast ([place]) 3+ /HPF 04/14/21 16:58 Blood Type A POSITIVE 04/14/21 16:51 Antibody Screen Negative 04/14/21 16:51 Scott/IV: Voiding Method Condom Catheter Active Medications - Current Medications Current Medications: Generic Name Dose Route Start Last Admin Trade Name Patrickq PRN Reason Stop Dose Admin Acetaminophen 650 mg 04/14/21 18:21 Acetaminophen 325 Mg Tab PO Q4H PRN Pain MILD(1-3)/Fever >100.5/ALANIS Dextrose/Sodium Chloride 1,000 mls @ 50 mls/hr 04/15/21 01:00 04/15/21 01:12 D5/0.45ns IV 50 mls/hr DIRECT NATALIA Administration Insulin Human Lispro 0 unit 04/15/21 06:00 04/15/21 06:21 Insulin Lispro 100 Unit/Ml SUB-Q Not Given Q6HR NATALIA Protocol Ondansetron HCl 4 mg 04/14/21 18:21 Ondansetron 4 Mg/2 Ml Inj IV Q8H PRN Nausea And Vomiting Pantoprazole Sodium 40 mg 04/14/21 22:00 04/15/21 09:59 Pantoprazole 40 Mg Inj IV 40 mg BID NATALIA Administration Sodium Chloride 10 ml 04/14/21 22:00 04/15/21 09:58 Sodium Chloride 0.9% 10 Ml Flush Syringe IV 10 ml BID NATALIA Administration Sodium Chloride 10 ml 04/14/21 18:21 04/15/21 01:12 Sodium Chloride 0.9% 10 Ml Flush Syringe IV 10 ml PRN PRN Administration LINE FLUSH
--- NOTE | 2021-04-15 13:17 | Post Operative Note ---
Date of procedure: 04/15/21 Pre-op diagnosis: GI bleed Post-op diagnosis: other (Hiatal hernia, erosive esophagitis, possibly Gastelum's esophagus) Findings: 1. [place]-colored mucosa from 37 to 40 cm from gums with few erosions distally. 2. 4 cm hiatal hernia. 3. Otherwise normal EGD with no evidence of bleeding. Rectal exam shows grainy black stool, no obvious blood. Procedure: EGD Anesthesia: MAC Surgeon: YUMI ROSALES Estimated blood loss: none Pathology: none Condition: stable Disposition: floor (Chronic PPI. Monitor H/H and transfuse if needed. Would stop Xarelto, and if stable, discharge [facility]. Pt may need colonoscopy as outpatient if remains stable.)
--- NOTE | 2021-04-15 13:35 | Electrocardiograph Report ---
[facility] Test Date: 2021-04-14 Test Time: 16:20:27 Pat Name: MAURISIO TRUONG Department: Room: A389 1 Gender: M Database Software Technician: LISA : 1950 Requested By: EVER MAGALLON Order Number: [id number] Reading MD: Ivon Dsouza Measurements Intervals [place] Rate: 76 P: OK: QRS: -57 QRSD: 96 T: 29 QT: 410 QTc: 461 Interpretive Statements Atrial fibrillation Left axis deviation Anteroseptal infarct, age indeterminate No previous ECG available for comparison Electronically Signed On 04-15-2021 13:35:02 EDT by Ivon Dsouza
[2021-04-15] MEDS ORDERED: SODIUM CHLORIDE 0.9% 500 ML 500 ML IV NR (16:14)
--- NOTE | 2021-04-15 16:46 | Post Anesthesia Evaluation ---
- Post Anesthesia Evaluation Patient Participated: Yes Airway Patent: Yes Stable Respiratory Function: Yes Nausea/Vomiting: No Temp > 96.8F: Yes Pain Manageable: Yes Adequeate Hydration: Yes Anesthesia Complications: No
[2021-04-16] MEDS: INSULIN LISPRO 100 UNIT/ML SUB-Q SCH ×2 (00:25→02:54)
[2021-04-16 03:29] VITALS: BP 142/64
[2021-04-16 06:17] LABS: Hematocrit 25.7 % (35.5-45.6); Hemoglobin 8.6 gm/dl (11.8-15.2); Mean Corpuscular HGB Conc 33 % (32-34); Mean Corpuscular Volume 87 fl (84-94); Platelet Count 204 K/mm3 (140-440); Red Blood Count 2.96 M/mm3 (3.65-5.03); Red Cell Distribution Width 15.9 % (13.2-15.2)
[2021-04-16 06:23] LABS: Calcium 7.9 mg/dL (8.4-10.2)
--- NOTE | 2021-04-16 10:23 | Discharge Summary ---
Providers - Providers Date of Admission: 04/14/21 18:22 Attending physician: MILAD HOGAN MD 04/14/21 18:13 Consult to Physician [CONS] Routine Comment: Dr. Llanes spoke to Dr. Roldan @ 18:10- LXM Consulting Provider: ALLI ROLDAN Physician Instructions: Reason For Exam: GI Bleed 04/15/21 16:20 Consult to Case Management [CONS] Routine Services Needed at Discharge: Cargo Surveyor Notified:: no Additional Physician Instructions: transportation Primary care physician: [facility] Hospitalization Reason for admission: GI bleed Condition: Stable Hospital course: 70 YO Male with HTN, CHF, DM, OA, Atrial Fib on Therapeutic Anticoagulation, Vascular Dementia, Cerebral Atherosclerosis presents to ED for evaluation. Patient reports "I feel weak". Patient has diminished cognition and provides minimal history. Patient brother is at bedside during exam and interview and provides history. Patient brother reports dark tarry stools, generalized weakness. Patient was seen and evaluated by his primary care physician found to have a hemoglobin of 6.7. EMS was notified and upon arrival the patient was found to be in distress and subsequently transported to [facility] for further care and evaluation of the aforementioned symptoms. The patient was seen and evaluated in the emergency department. All lab and imaging studies reviewed. Patient was found to be Hemoccult positive with clinical symptoms consistent with GI bleed. Patient admitted to medical floor for further care and evaluation. GI team consulted in ED. No reports of fever, chills, chest pain, palpitation, productive cough, skin rash, recent ill contacts, or known exposure to COVID-19. No prior admission for review. All medication listed at time of admission has been reconciled. Advanced care planning conducted in ED. 04/16: Patient remained stable this morning hemoglobin responded to transfusion. Can be discharged. Case management to arrange for transportation patient will follow with the doctors at the [place] and also with heart doctor and GI. Also the patient is on iron pills at home this could account for the grainy black stool (1) Upper GI bleed Current Visit: Yes Status: Acute Plan to address problem: PPI therapy, supportive care, CBC, GI team consulted, further care and evaluation as per GI team. S/P endoscopy Pre-op diagnosis: GI bleed Post-op diagnosis: other (Hiatal hernia, erosive esophagitis, possibly Gastelum's esophagus) Findings: 1. [place]-colored mucosa from 37 to 40 cm from gums with few erosions distally. 2. 4 cm hiatal hernia. 3. Otherwise normal EGD with no evidence of bleeding. Rectal exam shows grainy black stool, no obvious blood. Procedure: EGD Anesthesia: MAC Surgeon: YUMI ROSALES Estimated blood loss: none Pathology: none Condition: stable Disposition: floor (Chronic PPI. Monitor H/H and transfuse if needed. Would stop Xarelto, and if stable, discharge with follow up with his [place] doctors. Pt may need colonoscopy as outpatient if remains stable.) This finding discussed with family- Brother to coordinate with GI and cardiology at the [place] next week (2) Blood loss anemia Current Visit: Yes Status: Acute Plan to address problem: supportive care, repeat CBC in a.m. 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 Disposition: DC/TX-06 HOME UNDER HOME [facility] Final Discharge Diagnosis (Prints w/discharge instructions): GI bleed Time spent for discharge: 35-minute Core Measure Documentation - Palliative Care Palliative Care/ Comfort Measures: Not Applicable - Core Measures Any of the following diagnoses?: none Exam - Physical Exam Narrative exam: General appearance: Present: No distress, chronically debilitated - EENT Eyes: Present: PERRL ENT: hearing intact, clear oral mucosa - Neck Neck: Present: supple, normal ROM - Respiratory Respiratory effort: normal Respiratory: bilateral: CTA - Cardiovascular Heart Sounds: Present: S1 & S2. Absent: rub, click - Extremities Extremities: pulses symmetrical, No edema Peripheral Pulses: within normal limits - Abdominal General gastrointestinal: Present: soft, non-tender, non-distended, normal bowel sounds Male genitourinary: Present: normal - Musculoskeletal Musculoskeletal: generalized weakness - Psychiatric Psychiatric: no appropriate mood/affect, no intact judgment & insight - Neurologic Neurologic: CNII-XII intact, no focal deficits, moves all extremities, no gait normal - Constitutional Vitals: Temp Pulse Resp BP Pulse Ox 98.4 F 74 18 142/64 96 04/16/21 03:28 04/16/21 03:28 04/16/21 03:28 04/16/21 03:39 04/16/21 03:28 Plan Activity: advance as tolerated, fall precautions Diet: low fat Special Instructions: record daily weights, record daily BP diary Additional Instructions: Home medications not on the list. Please continue home medicine and discussed with your doctors recommendation for Xarelto Plan of Treatment: Follow with primary care physician, door puller and impregnator and drier at the [place] in 1 week. Follow up with: PRIMARY CARE, [Primary Care Provider] - 3-5 Days Prescriptions: Pantoprazole Sodium 40 mg PO BID #60 tablet.
[2021-04-16] MEDS ORDERED: PANTOPRAZOLE 40 MG TAB PO SCH (11:00)
--- NOTE | 2021-04-16 15:19 | Gastroenterology Progress Note ---
Assessment and Plan Anemia/dark stools - EGD without high risk bleeding lesions. H/h stable. noted plans for discharge today. f/u at [facility] following discharge for outpatient colonoscopy if indicated/not up to date. will sign off, please call as needed Subjective Date of service: 04/16/21 Principal diagnosis: anemia, gi bleed Interval history: no bleeding episodes overnight; pt unable to provide history. pt's sister at bedside. Objective - Exam Narrative Exam: gen: nad, unable to follow commands/answer questions abd: soft, nd, +bs - Constitutional Vitals: Temp Pulse Resp BP Pulse Ox 98.4 F 74 18 142/64 96 04/16/21 03:28 04/16/21 03:28 04/16/21 03:28 04/16/21 03:39 04/16/21 03:28 - Labs CBC & Chem 7: 04/16/21 05:38 04/16/21 05:38 Labs: Laboratory Results - last 24 hr 04/14/21 04/15/21 04/16/21 16:51 23:36 05:38 WBC 7.3 RBC 2.96 L Hgb 8.6 L Hct 25.7 L MCV 87 MCH 29 MCHC 33 RDW 15.9 H Plt Count 204 Sodium Potassium Chloride Carbon Dioxide Anion Gap BUN Creatinine Estimated GFR BUN/Creatinine Ratio Glucose POC Glucose 209 H Calcium Blood Type A POSITIVE Antibody Screen Negative Crossmatch See Detail 04/16/21 04/16/21 04/16/21 05:38 06:37 11:19 WBC RBC Hgb Hct MCV MCH MCHC RDW Plt Count Sodium 139 Potassium 4.3 Chloride 106.5 Carbon Dioxide 25 Anion Gap 12 BUN 29 H Creatinine 1.3 Estimated GFR 54 BUN/Creatinine Ratio 22 Glucose 270 H POC Glucose 245 H 258 H Calcium 7.9 L Blood Type Antibody Screen Crossmatch
--- NOTE | 2021-09-26 11:58 | Operative Report ---
DATE OF SURGERY: 04/15/2021 UPPER ENDOSCOPY REPORT PROCEDURE: Upper endoscopy. PREOPERATIVE DIAGNOSIS: Gastrointestinal bleed. 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 SEDATION: MAC by Anesthesia. HISTORY: The patient is a 70-year-old man who came in with melena and anemia with a hemoglobin of 7.5. DESCRIPTION OF PROCEDURE: The procedure, indications, risks, and benefits that was obtained from the patient's brother. The patient was placed in left lateral decubitus position and sedated. The upper endoscope was passed through the mouth and oropharynx into the descending duodenum and gradually withdrawn with close inspection of mucosa. FINDINGS: 1. A 4 cm hiatal hernia. 2. [place]-colored mucosa extending from 37-40 cm from the gums with a few erosions noted distally. 3. Normal stomach. 4. Normal duodenum and bulb. The patient tolerated the procedure well without immediate complication. IMPRESSION: 1. 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 2. A 4 cm hiatal hernia. 3. No evidence of active or recent bleeding. RECOMMENDATIONS: 1. Chronic proton pump inhibitors. 2. Consider stopping Xarelto and have patient [facility]. 3. Monitor hemoglobin and transfuse as needed. 4. Follow up subsequently on endoscopy off anticoagulants. TID: [id number] RECEIPT: [id number] [facility]
== END 2021-04-16 18:41 | disposition home or self-care (01) | DRG 380 ==
LOC: ED 15:15 → 3A 18:22
PROVIDERS: ADMIT Internal Medicine; ATTEND Internal Medicine
PROC: 0DJ08ZZ Inspection of Upper Intestinal Tract, Via Natural or Artificial Opening Endoscopic (ICD-10-PCS; 2021-04-15)
PROC: 30233N1 Transfusion of Nonautologous Red Blood Cells into Peripheral Vein, Percutaneous Approach (ICD-10-PCS; principal; 2021-04-16)
DX: K22.11 Ulcer of esophagus with bleeding (principal); N17.0 Acute kidney failure with tubular necrosis; D62 Acute posthemorrhagic anemia; I13.0 Hypertensive heart and chronic kidney disease with heart failure and stage 1 through stage 4 chronic kidney disease, or unspecified chronic kidney disease; I48.91 Unspecified atrial fibrillation; Z88.5 Allergy status to narcotic agent; Z88.8 Allergy status to other drugs, medicaments and biological substances; I50.9 Heart failure, unspecified; E11.22 Type 2 diabetes mellitus with diabetic chronic kidney disease; N18.30 Chronic kidney disease, stage 3 unspecified; Z89.511 Acquired absence of right leg below knee; M10.9 Gout, unspecified; F01.50 Vascular dementia, unspecified severity, without behavioral disturbance, psychotic disturbance, mood disturbance, and anxiety; Z82.49 Family history of ischemic heart disease and other diseases of the circulatory system; K44.9 Diaphragmatic hernia without obstruction or gangrene; M19.90 Unspecified osteoarthritis, unspecified site
CPT/HCPCS: 36415; 36430; 74022; 80048; 80053; 81001; 82550; 82962; 84443; 85025; 85027; 85610; 85730; 86850; 86900; 86901; 86920; 93005; 96374; G0378; J7070; C9113; J1815; J2704; J7030; J7040; P9016

== ENCOUNTER 2021-04-27 17:52 | Inpatient (IN) | payer MEDICARE, OTHER ==
--- NOTE | 2021-04-27 19:31 | Emergency Department Report ---
ED GI Bleed HPI - General Chief complaint: GI Bleed Stated complaint: BLOOD LEVEL LOW Time Seen by Provider: 04/27/21 19:20 Source: EMS Mode of arrival: Stretcher Limitations: Other - History of Present Illness Initial comments: Patient is a 70-year-old male who presents emergency room with complaints of dark stool and fatigue. Patient states he is started a couple days ago. Patient states they are worsening. Patient denies pain at this time. Patient is lethargic but easily arousable. Patient answers all questions appropriately. Patient is oriented x to. Patient oriented to person and place. Patient disoriented to situation and date.. Patient denies recent travel. Patient denies recent international travel. Patient denies exposure to the novel coronavirus. Patient denies sick contacts. Patient denies fever and chills. Patient denies cough. Patient denies diarrhea. Patient denies coming in contact with anybody with symptoms of the novel coronavirus. Caregiver at bedside. Caregiver states that approximately a month ago they increased his Eliquis to 5 mg twice a day and approximately 3 days ago he started having dark stools. Caregiver states that he had blood drawn yesterday and was found to be severely anemic. Patient's caregiver states that the [facility] called him to be brought to the hospital for a possible transfusion. complaint: melena -: Sudden Consistency: constant Improves with: none Worsens with: none Context: history of GI bleed - Related Data Previous Rx's Medication Instructions Recorded Last Taken Type Pantoprazole Sodium 40 mg PO BID #60 tablet. 04/16/21 Unknown Rx Allergies Allergy/AdvReac Type Severity Reaction Status Date / Time hydralazine Allergy Vomiting Verified 02/02/21 15:58 isosorbide [From Imdur] Allergy Unknown Verified 04/14/21 16:03 tramadol Allergy Shortness Verified 02/02/21 15:58 of Breath ED Review of Systems ROS: Stated complaint: BLOOD LEVEL LOW Other details as noted in HPI Comment: Unobtainable due to pts medical conditions ED Past Medical Hx - Past Medical History Previous Medical History?: Yes Hx Hypertension: Yes Hx CVA: No Hx Congestive Heart Failure: Yes Hx Diabetes: Yes Hx Deep Vein Thrombosis: No Hx Arthritis: Yes (gout) Hx Seizures: No Hx Asthma: No Additional medical history: A FIB/CKD /LYMPATHIC EDEMA/NEUROPATHY/ ULCER DEMENTIA - Surgical History Past Surgical History?: No - Family History Family history: no significant - Social History Smoking Status: Unknown if ever smoked Substance Use Type: None - Medications Home Medications: Home Medications Medication Instructions Recorded Confirmed Last Taken Type Pantoprazole Sodium 40 mg PO BID #60 tablet. 04/16/21 Unknown Rx ED Physical Exam - General Limitations: Other General appearance: alert, in no apparent distress - Head Head exam: Present: atraumatic, normocephalic - Eye Eye exam: Present: normal appearance, PERRL, other (Scleral pallor noted) Pupils: Present: normal accommodation - ENT ENT exam: Present: mucous membranes dry - Neck Neck exam: Present: normal inspection - Respiratory Respiratory exam: Present: normal lung sounds bilaterally. Absent: respiratory distress, wheezes, rales - Cardiovascular Cardiovascular Exam: Present: regular rate, normal rhythm. Absent: systolic murmur, diastolic murmur, rubs, gallop - GI/Abdominal GI/Abdominal exam: Present: soft, normal bowel sounds. Absent: distended, tenderness, guarding - Rectal Rectal exam: Present: deferred - Extremities Exam Extremities exam: Present: normal inspection - Back Exam Back exam: Present: normal inspection - Neurological Exam Neurological exam: Present: alert, oriented X3 - Psychiatric Psychiatric exam: Present: normal affect, normal mood - Skin Skin exam: Present: warm, dry, intact, pallor. Absent: rash ED Course Vital Signs 04/27/21 04/27/21 04/27/21 19:16 19:19 19:20 Temperature Pulse Rate 94 H 73 Respiratory 18 21 22 Rate Blood Pressure Blood Pressure 245/106 [Left] O2 Sat by Pulse 98 98 Oximetry 04/27/21 04/27/21 04/27/21 19:30 20:00 20:01 Temperature Pulse Rate 76 82 83 Respiratory 24 24 22 Rate Blood Pressure 220/98 214/99 216/119 Blood Pressure 216/119 [Left] O2 Sat by Pulse 98 98 97 Oximetry 04/27/21 04/27/21 04/27/21 20:30 20:45 21:01 Temperature Pulse Rate 82 74 84 Respiratory 10 L 16 21 Rate Blood Pressure 228/101 234/111 194/90 Blood Pressure [Left] O2 Sat by Pulse 97 97 94 Oximetry 04/27/21 04/27/21 04/27/21 21:05 21:15 21:31 Temperature Pulse Rate 84 79 84 Respiratory 24 24 Rate Blood Pressure 179/91 156/89 Blood Pressure 179/91 [Left] O2 Sat by Pulse 96 96 Oximetry 04/27/21 04/27/21 04/27/21 21:45 22:01 22:15 Temperature Pulse Rate 82 80 86 Respiratory 24 22 22 Rate Blood Pressure 162/82 167/78 174/88 Blood Pressure [Left] O2 Sat by Pulse 97 98 95 Oximetry 04/27/21 04/27/21 04/27/21 22:31 22:45 23:01 Temperature Pulse Rate 89 82 75 Respiratory 24 24 23 Rate Blood Pressure 108/70 170/81 172/106 Blood Pressure [Left] O2 Sat by Pulse 96 96 96 Oximetry 04/27/21 04/28/21 23:15 00:00 Temperature 97.5 F L Pulse Rate 79 Respiratory 18 Rate Blood Pressure 108/70 Blood Pressure [Left] O2 Sat by Pulse 98 Oximetry - Reevaluation(s) Reevaluation #1: Initial evaluation done. Patient blood pressure can be elevated. Patient will receive IV antihypertensives. 04/27/21 19:32 04/27/21 19:47 Reevaluation #2: Patient blood pressure did not decrease with Lopressor. Patient will be placed on a nicardipine drip. 04/27/21 20:32 Reevaluation #3: Patient started on nicardipine drip. Patient's blood pressure improved. We will continue to monitor blood pressure. 04/27/21 21:40 - Consultations Consultation #1: GI consulted. I discussed case with Dr. ROSALES. 04/27/21 21:51 Consultation #2: Hospitalist consulted for admission. Hospitalist to admit patient. 04/27/21 21:53 ED Medical Decision Making - Lab Data Result diagrams: 04/27/21 19:46 04/27/21 19:31 - Medical Decision Making Patient is a 70-year-old male that presents emergency room with complaints of melena low blood pressure. Patient's information receptionist at bedside. Patient information receptionist states that he had a recent increase in his Eliquis by paste up artist. Patient has chronic kidney disease. Creatinine is above baseline. Patient anemia is severe enough to require transfusion. Patient was typed and crossed and given 1 unit of packed red blood cells. GI was consulted. GI recommendations received. Patient found to have malignant hypertension and the patient was given Lopressor but now resolved and the patient was placed on a nicardipine drip. Patient responded well to nicardipine. Patient admitted to the hospital service for evaluation treatment. Critical care time documented due to the multiple reassessments, prolonged time at the bedside, interpretation of diagnostics and labs. - Differential Diagnosis Melena, GI bleed, anemia, renal failure, ckd, Critical Care Time: Yes Critical care time in (mins) excluding proc time.: 35 Critical care attestation.: If time is entered above; I have spent that time in minutes in the direct care of this critically ill patient, excluding procedure time. Critical Care Time: 35 minutes ED Disposition Clinical Impression: Melena, Blood loss anemia, Hypertensive urgency, malignant, Hyperkalemia Anemia Qualifiers: Anemia type: unspecified type Qualified Code(s): D64.9 - Anemia, unspecified Acute on chronic renal failure Qualifiers: Acute renal failure type: unspecified Chronic kidney disease stage: unspecified stage Qualified Code(s): N17.9 - Acute kidney failure, unspecified Disposition: 09 OP ADMIT IP TO THIS HOSP Is pt being admited?: Yes Does the pt Need Aspirin: No Condition: Critical Time of Disposition: 21:50
[2021-04-27 19:56] LABS: Basophils % (Auto) 0.5 % (0.0-1.8); Eosinophils # (Auto) 0.2 K/mm3 (0.0-0.4); Hematocrit 21.6 % (35.5-45.6); Hemoglobin 7.2 gm/dl (11.8-15.2); Lymphocytes # (Auto) 0.8 K/mm3 (1.2-5.4); Lymphocytes % (Auto) 14.7 % (13.4-35.0); Mean Corpuscular HGB Conc 33 % (32-34); Mean Corpuscular Volume 88 fl (84-94); Monocytes # (Auto) 0.5 K/mm3 (0.0-0.8); Monocytes % (Auto) 8.4 % (0.0-7.3); Platelet Count 185 K/mm3 (140-440); Red Blood Count 2.45 M/mm3 (3.65-5.03); Red Cell Distribution Width 17.1 % (13.2-15.2)
[2021-04-27] MEDS ORDERED: METOPROLOL TARTRATE 5 MG/5 ML INJ IV ONE (19:57)
[2021-04-27 20:05] LABS: INR 1.91 (0.87-1.13)
[2021-04-27 20:06] LABS: Partial Thromboplastin Time 48.5 Sec. (24.2-36.6)
[2021-04-27 20:18] LABS: Albumin 2.4 g/dL (3.9-5); Calcium 7.9 mg/dL (8.4-10.2)
[2021-04-27] MEDS ORDERED: niCARdipine DRIP 40 MG/200 ML BAG IV ONE (20:28)
[2021-04-27] MEDS ORDERED: SODIUM CHLORIDE 0.9% 500 ML 500 ML IV ONE (20:29)
[2021-04-27] MEDS ORDERED: ONDANSETRON 4 MG/2 ML INJ IV PRN (22:35)
[2021-04-27] MEDS ORDERED: DEXTROSE 50% IN WATER (25GM) 50 ML SYRINGE IV PRN (22:35)
--- NOTE | 2021-04-27 22:48 | History and Physical Report ---
History of Present Illness Date of examination: 04/27/21 Date of admission: 04/27/2021 Chief complaint: Melena History of present illness: 70-year-old male presenting to the emergency room today complaining of dark stool and generalized fatigue. Dark stool was said to have started a few days ago. He denies any abdominal pain, no fever or chills, no chest pain or shortness of breath. Most of the history was gotten from the brother who was also the caregiver was by the bedside. Patient was quite lethargic and was unable to respond quite appropriately. He denies any recent travel and no sick contacts. Denies any contact with anyone with COVID-19. Patient has been on anticoagulation with Eliquis and dose was recently increased to 5 mg twice a day few days ago and thereafter patient started having dark stools. Labs were drawn sometime yesterday patient was found to be anemic. He got a call from the [facility] and was encouraged to be taken to the hosp ital for possible blood transfusion. Upon arrival in the emergency room blood pressure was quite elevated with systolic of about 216 and diastolic of 119 mmHg. He was subsequently placed on nicardipine drip which was later tapered off. Patient did not take any of his blood pressure medications prior to arrival in the emergency room Work-up today reveals a hemoglobin of 7.2 and hematocrit of 21.6. Potassium was slightly elevated at 5.4. He also had elevated BUN and creatinine. Patient is being admitted for GI bleed. Past History Past Medical History: atrial fib, arthritis, diabetes, heart failure, hypertension, renal failure (Chronic), other (Dementia,Neuropathy) Past Surgical History: No surgical history Social history: no significant social history Family history: no significant family history Medications and Allergies Allergies Allergy/AdvReac Type Severity Reaction Status Date / Time hydralazine Allergy Vomiting Verified 04/28/21 02:00 isosorbide [From Imdur] Allergy Unknown Verified 04/28/21 02:00 tramadol Allergy Shortness Verified 04/28/21 02:00 of Breath Home Medications Medication Instructions Recorded Confirmed Last Taken Type Pantoprazole Sodium 40 mg PO BID #60 tablet. 04/16/21 04/28/21 04/26/21 21:00 Rx Acetaminophen/Diphenhydramine 2 each PO TID PRN 04/28/21 04/28/21 04/26/21 21:00 History [Tylenol Pm Ex-Strength Caplet] Apixaban [Eliquis] 5 mg PO BID 04/28/21 04/28/21 04/26/21 21:00 History AtorvaSTATin [Lipitor] 40 mg PO QHS 04/28/21 04/28/21 04/26/21 21:00 History B Complex W/Vitamin C [Allbee with 500 mg PO DAILY 04/28/21 04/28/21 04/26/21 09:00 History C] Ferrous Sulfate [Ferrous Sulfate 324 mg PO BID 04/28/21 04/28/21 04/26/21 21:00 History 324 MG] Insulin Glargine,Hum.rec.anlog 25 unit SQ HS PRN 04/28/21 04/28/21 04/26/21 21:00 History [Lantus Solostar] Novolin 70-30 Flexpen 4 units SUB-Q PRN PRN 04/28/21 04/28/21 04/25/21 02:10 History Sennosides Tab [Senokot] 8.6 mg PO DAILY 04/28/21 04/28/21 04/26/21 21:00 History Tamsulosin [Flomax] 0.4 mg PO QDAY 04/28/21 04/28/21 04/26/21 09:00 History carvediloL [Coreg] 6.25 mg PO BID 04/28/21 04/28/21 04/26/21 21:00 History lisinopriL [Zestril] 5 mg PO QDAY 04/28/21 04/28/21 04/26/21 09:00 History Active Meds: Active Medications Dextrose (Dextrose 50% In Water (25gm) 50 Ml Syringe) 50 ml IV Q30MIN PRN; Protocol PRN Reason: Hypoglycemia Nicardipine/Sodium Chloride (Cardene Drip 40 Mg/200 Ml) 40 mg in 200 mls @ 25 mls/hr IV ONCE ONE; Protocol Stop: 04/28/21 04:27 Last Titration: 04/27/21 21:50 Dose: 0 mg/hr, 0 mls/hr Documented by: Sodium Chloride (Nacl 0.9% 1000 Ml) 1,000 mls @ 75 mls/hr IV DIRECT NATALIA Insulin Human Lispro (Insulin Lispro 100 Unit/Ml) 0 unit SUB-Q ACHS NATALIA; Protocol Morphine Sulfate (Morphine 2 Mg/1 Ml Inj) 2 mg IV Q4H PRN PRN Reason: Pain, Moderate (4-6) Ondansetron HCl (Ondansetron 4 Mg/2 Ml Inj) 4 mg IV Q8H PRN PRN Reason: Nausea And Vomiting Sodium Chloride (Sodium Chloride 0.9% 10 Ml Flush Syringe) 10 ml IV BID NATALIA Sodium Chloride (Sodium Chloride 0.9% 10 Ml Flush Syringe) 10 ml IV PRN PRN PRN Reason: LINE FLUSH Review of Systems Constitutional: no fever, no chills Ears, nose, mouth and throat: no nasal congestion, no sore throat Cardiovascular: no chest pain, no palpitations Respiratory: no cough, no shortness of breath Gastrointestinal: melena, no abdominal pain, no nausea, no vomiting, no diarrhe a, no hematemesis Genitourinary Male: no dysuria, no hematuria, no flank pain Musculoskeletal: no neck pain, no low back pain Integumentary: no rash, no pruritis Neurological: no syncope, no headaches, no change in mentation, no confusion Psychiatric: no anxiety, no depression Endocrine: no polyphagia, no polydipsia, no polyuria, no nocturia Exam - Constitutional Vitals: Temp Pulse Resp BP Pulse Ox 80 22 167/78 98 04/27/21 22:01 04/27/21 22:01 04/27/21 22:01 04/27/21 22:01 General appearance: Present: no acute distress, well-nourished, other (Moderate Pallor) - EENT Eyes: Present: PERRL, EOM intact. Absent: scleral icterus ENT: hearing intact, clear oral mucosa, dentition normal - Neck Neck: Present: supple, normal ROM - Respiratory Respiratory effort: normal Respiratory: bilateral: CTA - Cardiovascular Rhythm: regular Heart Sounds: Present: S1 & S2, gallop, systolic murmur - Extremities Extremities: no ischemia, pulses intact, pulses symmetrical, Full ROM Extremity abnormal: ulceration (Left heel with dressing in place.), other (Right below knee amputation) Peripheral Pulses: within normal limits - Abdominal General gastrointestinal: Present: soft, non-tender, non-distended, normal bowel sounds. Absent: mass - Integumentary Integumentary: Present: clear, warm, dry. Absent: rash - Musculoskeletal Musculoskeletal: strength equal bilaterally - Psychiatric Psychiatric: appropriate mood/affect, intact judgment & insight, memory intact, cooperative - Neurologic Neurologic: CNII-XII intact, no focal deficits, moves all extremities Results - Labs CBC & Chem 7: 04/28/21 06:53 04/28/21 06:53 Labs: Abnormal lab results 04/27/21 04/27/21 04/27/21 Range/Units 19:31 19:46 19:46 RBC 2.45 L (3.65-5.03) M/mm3 Hgb 7.2 L (11.8-15.2) gm/dl Hct 21.6 L (35.5-45.6) % RDW 17.1 H (13.2-15.2) % Pierce % (Auto) 8.4 H (0.0-7.3) % Lymph # (Auto) 0.8 L (1.2-5.4) K/mm3 Seg Neutrophils % 72.4 H (40.0-70.0) % PT 22.3 H (12.2-14.9) Sec. INR 1.91 H (0.87-1.13) APTT 48.5 H (24.2-36.6) Sec. Potassium 5.4 H (3.6-5.0) mmol/L Carbon Dioxide 21 L (22-30) mmol/L BUN 36 H (9-20) mg/dL Creatinine 2.5 H (0.8-1.3) mg/dL Glucose 166 H (75-100) mg/dL Calcium 7.9 L (8.4-10.2) mg/dL Total Protein 6.2 L (6.3-8.2) g/dL Albumin 2.4 L (3.9-5) g/dL Crossmatch 04/27/21 Range/Units 19:46 RBC (3.65-5.03) M/mm3 Hgb (11.8-15.2) gm/dl Hct (35.5-45.6) % RDW (13.2-15.2) % Pierce % (Auto) (0.0-7.3) % Lymph # (Auto) (1.2-5.4) K/mm3 Seg Neutrophils % (40.0-70.0) % PT (12.2-14.9) Sec. INR (0.87-1.13) APTT (24.2-36.6) Sec. Potassium (3.6-5.0) mmol/L Carbon Dioxide (22-30) mmol/L BUN (9-20) mg/dL Creatinine (0.8-1.3) mg/dL Glucose (75-100) mg/dL Calcium (8.4-10.2) mg/dL Total Protein (6.3-8.2) g/dL Albumin (3.9-5) g/dL Crossmatch See Detail Assessment and Plan - Patient Problems (1) Upper GI bleed Current Visit: No Status: Acute Plan to address problem: Consult placed to coating manager for evaluation. Meanwhile patient has been started on proton pump inhibitor. Will monitor CBC. (2) Acute on chronic renal failure Current Visit: Yes Status: Acute Qualifiers: Acute renal failure type: unspecified Chronic kidney disease stage: unspecified stage Qualified Code(s): N17.9 - Acute kidney failure, unspecified; N18.9 - Chronic kidney disease, unspecified Plan to address problem: Consult placed to nephrology for evaluation. We will monitor BUN and creatinine. (3) Hypertensive urgency, malignant Current Visit: Yes Status: Acute Plan to address problem: Patient was on Cardene drip which was later tapered off. We will monitor blood pressure closely. (4) Atrial fibrillation Current Visit: No Status: Acute Qualifiers: Atrial fibrillation type: unspecified Qualified Code(s): I48.91 - Unspecified atrial fibrillation Plan to address problem: Rate currently controlled. We hold anticoagulation meanwhile in view of the GI bleed (5) DVT prophylaxis Current Visit: No Status: Acute Plan to address problem: Patient placed on sequential compression device. (6) Full code status Current Visit: Yes Status: Acute Plan to address problem: Patient is full code.
[2021-04-27] MEDS ORDERED: METOPROLOL TARTRATE 5 MG/5 ML INJ IV PRN (23:22)
[2021-04-27] MEDS ORDERED: cloNIDine TTS 0.2 MG/24 HR PATCH TD SCH (23:45)
[2021-04-28] MEDS: SODIUM CHLORIDE 0.9% 1000 ML 1,000 ML IV SCH ×2 (00:56→16:52)
[2021-04-28 07:05] LABS: Basophils % (Auto) 0.3 % (0.0-1.8); Eosinophils # (Auto) 0.2 K/mm3 (0.0-0.4); Eosinophils % (Auto) 3.6 % (0.0-4.3); Hematocrit 25.3 % (35.5-45.6); Hemoglobin 8.4 gm/dl (11.8-15.2); Lymphocytes % (Auto) 15.2 % (13.4-35.0); Mean Corpuscular HGB Conc 33 % (32-34); Mean Corpuscular Volume 87 fl (84-94); Monocytes # (Auto) 0.7 K/mm3 (0.0-0.8); Monocytes % (Auto) 10.1 % (0.0-7.3); Platelet Count 174 K/mm3 (140-440); Red Blood Count 2.93 M/mm3 (3.65-5.03); Red Cell Distribution Width 16.3 % (13.2-15.2)
[2021-04-28 07:18] LABS: INR 1.92 (0.87-1.13)
[2021-04-28 07:29] LABS: Calcium 7.2 mg/dL (8.4-10.2)
[2021-04-28] MEDS: INSULIN LISPRO 100 UNIT/ML SUB-Q SCH ×4 (08:00→22:34)
[2021-04-28] MEDS: PANTOPRAZOLE 40 MG INJ IV SCH ×2 (09:31→21:41)
--- NOTE | 2021-04-28 10:13 | Consultation ---
History of Present Illness - Reason for Consult Consult date: 04/28/21 acute renal failure - History of Present Illness The patient is a 70 YO male with history significant for DM type 2, HTN, CHF, A.fib with Eliquis, R BKA and CKD who presented to [facility] ED the emergency room today complaining of dark stool and generalized fatigue. At the time of eval patient was not able to provide any history and there was no family member at the bedside. Dark stool was started a few days ago. He denied any abdominal pain, fever, chills, chest pain or shortness of breath. No h/o recent travel, sick contacts or contact with anyone with COVID-19. Labs drawn the day prior found to be anemic. Upon arrival to the emergency room blood pressure was quite elevated to 216/119 mmHg. He was subsequently placed on Nicardipine drip which was later tapered off. Labs significant for H/H 7.2 / 21.6, Potassium 5.4, Creat 2.5 and BUN 35. Patient was being admitted for GI bleed. Nephrology was consulted for further evaluation and treatment of DAVID. Past History Past Medical History: atrial fib, arthritis, diabetes, heart failure, hypertension, renal failure (Chronic), other (Dementia,Neuropathy) Past Surgical History: No surgical history Social history: no significant social history Family history: no significant family history Medications and Allergies Allergies Allergy/AdvReac Type Severity Reaction Status Date / Time hydralazine Allergy Vomiting Verified 04/28/21 02:00 isosorbide [From Imdur] Allergy Unknown Verified 04/28/21 02:00 tramadol Allergy Shortness Verified 04/28/21 02:00 of Breath Home Medications Medication Instructions Recorded Confirmed Last Taken Type Pantoprazole Sodium 40 mg PO BID #60 tablet. 04/16/21 04/28/21 04/26/21 21:00 Rx Acetaminophen/Diphenhydramine 2 each PO TID PRN 04/28/21 04/28/21 04/26/21 21:00 History [Tylenol Pm Ex-Strength Caplet] Apixaban [Eliquis] 5 mg PO BID 04/28/21 04/28/21 04/26/21 21:00 History AtorvaSTATin [Lipitor] 40 mg PO QHS 04/28/21 04/28/21 04/26/21 21:00 History B Complex W/Vitamin C [Allbee with 500 mg PO DAILY 04/28/21 04/28/21 04/26/21 09:00 History C] Ferrous Sulfate [Ferrous Sulfate 324 mg PO BID 04/28/21 04/28/21 04/26/21 21:00 History 324 MG] Insulin Glargine,Hum.rec.anlog 25 unit SQ HS PRN 04/28/21 04/28/21 04/26/21 21:00 History [Lantus Solostar] Novolin 70-30 Flexpen 4 units SUB-Q PRN PRN 04/28/21 04/28/21 04/25/21 02:10 History Sennosides Tab [Senokot] 8.6 mg PO DAILY 04/28/21 04/28/21 04/26/21 21:00 History Tamsulosin [Flomax] 0.4 mg PO QDAY 04/28/21 04/28/21 04/26/21 09:00 History carvediloL [Coreg] 6.25 mg PO BID 04/28/21 04/28/21 04/26/21 21:00 History lisinopriL [Zestril] 5 mg PO QDAY 04/28/21 04/28/21 04/26/21 09:00 History Active Meds: Active Medications Clonidine HCl (Clonidine Tts 0.2 Mg/24 Hr Patch) 0.2 mg TD We NATALIA Last Admin: 04/28/21 00:59 Dose: 0.2 mg Documented by: Dextrose (Dextrose 50% In Water (25gm) 50 Ml Syringe) 50 ml IV Q30MIN PRN; Protocol PRN Reason: Hypoglycemia Sodium Chloride (Nacl 0.9% 1000 Ml) 1,000 mls @ 75 mls/hr IV DIRECT NATALIA Last Admin: 04/28/21 00:56 Dose: 75 mls/hr Documented by: Insulin Human Lispro (Insulin Lispro 100 Unit/Ml) 0 unit SUB-Q ACHS NATALIA; Protoc ol Last Admin: 04/28/21 08:00 Dose: Not Given Documented by: Metoprolol Tartrate (Metoprolol Tartrate 5 Mg/5 Ml Inj) 5 mg IV Q6HR PRN PRN Reason: SBP>165, DBP>95 Last Admin: 04/28/21 01:10 Dose: 5 mg Documented by: Morphine Sulfate (Morphine 2 Mg/1 Ml Inj) 2 mg IV Q4H PRN PRN Reason: Pain, Moderate (4-6) Ondansetron HCl (Ondansetron 4 Mg/2 Ml Inj) 4 mg IV Q8H PRN PRN Reason: Nausea And Vomiting Pantoprazole Sodium (Pantoprazole 40 Mg Inj) 40 mg IV BID [facility] Last Admin: 04/28/21 09:31 Dose: 40 mg Documented by: Sodium Chloride (Sodium Chloride 0.9% 10 Ml Flush Syringe) 10 ml IV BID [facility] Last Admin: 04/28/21 09:32 Dose: 10 ml Documented by: Sodium Chloride (Sodium Chloride 0.9% 10 Ml Flush Syringe) 10 ml IV PRN PRN PRN Reason: LINE FLUSH Review of Systems ROS unobtainable: due to mental status Exam - Vital Signs Vital signs: Vital Signs Pulse Resp 94 H 18 04/27/21 19:16 04/27/21 19:16 Results - Lab Results 04/28/21 06:53 04/28/21 06:53 Most recent lab results Calcium 7.2 mg/dL (8.4-10.2) L 04/28/21 06:53 Assessment and Plan 1. Acute kidney injury: Likely vasomotor DAVID superimposed on CKD. ATN likely. Urine studies and Renal US ordered. Monitor renal function. Continue IV fluids. Renal prognosis is guarded. Avoid nephrotoxic agents. Meds dosage based on GFR. 2. FEN: Hyperkalemia, improved, monitor. Metabolic acidosis, monitor. Monitor lytes and volume status. 3. GI bleed: Admitted with melena. Followed by GI. 4. Encephalopathy, POA: Likely chronic. ?baseline. 5. Hypertensive urgency: Patient was on Cardene drip which was later tapered off. We will monitor blood pressure closely. 6. Atrial fibrillation: Rate currently controlled. We hold anticoagulation in view of the GI bleed. 7. DM type 2. Subjective: Patient was seen and examined at the bedside. Examination: General appearance: well-developed, appears stated age, not in distress HEENT: atraumatic, KEN Neck: trachea midline Respiratory: ctab Heart: S1S2, no murmur Abdomen: soft, bowel sounds heard, NT Integumentary: L foot dressing, chronic changes noted Neurologic: stuporous, opens eyes Ext: no edema, R BKA
[2021-04-28 12:59] LABS: Bacteria,Urine 4+ /HPF (Negative); Bilirubin,Urine NEG (Negative); Blood,Urine LG (Negative); Color,Urine Amber (Yellow); Mucus,Urine FEW /HPF; Urobilinogen,Urine < 2.0 mg/dL (<2.0)
[2021-04-28 13:00] LABS: Protein,Urine >500 mg/dL (Negative); RBC,Urine > 182.0 /HPF (0.0-6.0)
[2021-04-28] MEDS: MORPHINE 2 MG/1 ML INJ IV PRN ×2 (13:16→21:37)
--- NOTE | 2021-04-28 14:01 | Ultrasound Report ---
ULTRASOUND RENAL INDICATION: Acute renal failure.. Acute renal failure. COMPARISON: No relevant prior imaging study available. FINDINGS: RIGHT KIDNEY: Size: 11.3 cm. Echogenicity: Increased. Cortical thickness: 1.3 cm. Hydronephrosis: None. Cyst or mass: None. Stones: Possible renal calculi. LEFT KIDNEY: Size: 10.4 cm. Echogenicity: Free. Cortical thickness: 1.3 cm Hydronephrosis: None. Cyst or mass: None. Stones: Possible renal calculi Urinary Bladder: No significant abnormality. Free Fluid: None. Additional Findings: None. IMPRESSION 1. No evidence of hydronephrosis 2. possible bilateral nephrolithiasis. Signer Name: Tony Alcazar MD Signed: 04/28/2021 1:57 PM Workstation Name: [id number]
--- NOTE | 2021-04-28 14:05 | Gastroenterology Consultation ---
History of Present Illness - Reason for Consult Consult date: 04/28/21 anemia, gi bleed Requesting physician: MARC KELLY III - History of Present Illness 70-year-old man with vascular dementia, atrial fibrillation, diabetes, left foot wound, right BKA, and bedridden x3 months due to back pain and neuropathy, on Xarelto for atrial fibrillation Recent EGD here just a few weeks ago for GI bleed without source history from brother Past History Past Medical History: atrial fib, arthritis, diabetes, heart failure, hype rtension, renal failure (Chronic), other (Dementia,Neuropathy) Past Surgical History: No surgical history Social history: no significant social history Family history: no significant family history Medications and Allergies Allergies Allergy/AdvReac Type Severity Reaction Status Date / Time hydralazine Allergy Vomiting Verified 04/28/21 02:00 isosorbide [From Imdur] Allergy Unknown Verified 04/28/21 02:00 tramadol Allergy Shortness Verified 04/28/21 02:00 of Breath Home Medications Medication Instructions Recorded Confirmed Last Taken Type Pantoprazole Sodium 40 mg PO BID #60 tablet. 04/16/21 04/28/21 04/26/21 21:00 Rx Acetaminophen/Diphenhydramine 2 each PO TID PRN 04/28/21 04/28/21 04/26/21 21:00 History [Tylenol Pm Ex-Strength Caplet] Apixaban [Eliquis] 5 mg PO BID 04/28/21 04/28/21 04/26/21 21:00 History AtorvaSTATin [Lipitor] 40 mg PO QHS 04/28/21 04/28/21 04/26/21 21:00 History B Complex W/Vitamin C [Allbee with 500 mg PO DAILY 04/28/21 04/28/21 04/26/21 09:00 History C] Ferrous Sulfate [Ferrous Sulfate 324 mg PO BID 04/28/21 04/28/21 04/26/21 21:00 History 324 MG] Insulin Glargine,Hum.rec.anlog 25 unit SQ HS PRN 04/28/21 04/28/21 04/26/21 21:00 History [Lantus Solostar] Novolin 70-30 Flexpen 4 units SUB-Q PRN PRN 04/28/21 04/28/21 04/25/21 02:10 History Sennosides Tab [Senokot] 8.6 mg PO DAILY 04/28/21 04/28/21 04/26/21 21:00 History Tamsulosin [Flomax] 0.4 mg PO QDAY 04/28/21 04/28/21 04/26/21 09:00 History carvediloL [Coreg] 6.25 mg PO BID 04/28/21 04/28/21 04/26/21 21:00 History lisinopriL [Zestril] 5 mg PO QDAY 04/28/21 04/28/21 04/26/21 09:00 History Active Meds: Active Medications Clonidine HCl (Clonidine Tts 0.2 Mg/24 Hr Patch) 0.2 mg TD We [facility] Last Admin: 04/28/21 00:59 Dose: 0.2 mg Documented by: Dextrose (Dextrose 50% In Water (25gm) 50 Ml Syringe) 50 ml IV Q30MIN PRN; Protocol PRN Reason: Hypoglycemia Sodium Chloride (Nacl 0.9% 1000 Ml) 1,000 mls @ 75 mls/hr IV DIRECT NATALIA Last Admin: 04/28/21 00:56 Dose: 75 mls/hr Documented by: Insulin Human Lispro (Insulin Lispro 100 Unit/Ml) 0 unit SUB-Q ACHS NATALIA; Protocol Last Admin: 04/28/21 12:00 Dose: Not Given Documented by: Metoprolol Tartrate (Metoprolol Tartrate 5 Mg/5 Ml Inj) 5 mg IV Q6HR PRN PRN Reason: SBP>165, DBP>95 Last Admin: 04/28/21 01:10 Dose: 5 mg Documented by: Morphine Sulfate (Morphine 2 Mg/1 Ml Inj) 2 mg IV Q4H PRN PRN Reason: Pain, Moderate (4-6) Last Admin: 04/28/21 13:16 Dose: 2 mg Documented by: Ondansetron HCl (Ondansetron 4 Mg/2 Ml Inj) 4 mg IV Q8H PRN PRN Reason: Nausea And Vomiting Pantoprazole Sodium (Pantoprazole 40 Mg Inj) 40 mg IV BID [facility] Last Admin: 04/28/21 09:31 Dose: 40 mg Documented by: Sodium Chloride (Sodium Chloride 0.9% 10 Ml Flush Syringe) 10 ml IV BID [facility] Last Admin: 04/28/21 09:32 Dose: 10 ml Documented by: Sodium Chloride (Sodium Chloride 0.9% 10 Ml Flush Syringe) 10 ml IV PRN PRN PRN Reason: LINE FLUSH Review of Systems - Review of Systems ROS unobtainable: due to mental status Exam - Constitutional Vital Signs: Temp Pulse Resp BP Pulse Ox 97.5 F L 65 19 172/70 96 04/28/21 12:00 04/28/21 13:30 04/28/21 13:30 04/28/21 13:30 04/28/21 13:30 General appearance: no acute distress - Respiratory Respiratory effort: normal - Gastrointestinal General gastrointestinal: Present: tender - Integumentary Integumentary: Present: dry - Labs CBC & Chem 7: 04/28/21 06:53 04/28/21 06:53 Lab Results: Laboratory Results - last 24 hr 04/27/21 04/27/21 04/27/21 19:31 19:46 19:46 WBC 5.6 RBC 2.45 L Hgb 7.2 L Hct 21.6 L MCV 88 MCH 29 MCHC 33 RDW 17.1 H Plt Count 185 Lymph % (Auto) 14.7 [place] % (Auto) 8.4 H Eos % (Auto) 4.0 Baso % (Auto) 0.5 Lymph # (Auto) 0.8 L [place] # (Auto) 0.5 Eos # (Auto) 0.2 Baso # (Auto) 0.0 Seg Neutrophils % 72.4 H Seg Neutrophils # 4.1 PT 22.3 H INR 1.91 H APTT 48.5 H Sodium 138 Potassium 5.4 H Chloride 104.0 Carbon Dioxide 21 L Anion Gap 18 BUN 36 H Creatinine 2.5 H Estimated GFR 26 BUN/Creatinine Ratio 14 Glucose 166 H POC Glucose Lactic Acid Calcium 7.9 L Total Bilirubin 0.50 AST 11 ALT 10 Alkaline Phosphatase 81 Total Protein 6.2 L Albumin 2.4 L Albumin/Globulin Ratio 0.6 Urine Color Urine Turbidity Urine pH Ur Specific [place] Urine Protein Urine Glucose (UA) Urine Ketones Urine Blood Urine Nitrite Urine Bilirubin Urine Urobilinogen Ur Leukocyte Esterase Urine WBC (Auto) Urine RBC (Auto) U Epithel Cells (Auto) Urine Bacteria (Auto) Urine Mucus Urine Yeast (Budding) Urine Sodium Blood Type Antibody Screen Crossmatch 04/27/21 04/27/21 04/28/21 19:46 19:46 06:53 WBC 6.6 RBC 2.93 L Hgb 8.4 L Hct 25.3 L MCV 87 MCH 29 MCHC 33 RDW 16.3 H Plt Count 174 Lymph % (Auto) 15.2 [place] % (Auto) 10.1 H Eos % (Auto) 3.6 Baso % (Auto) 0.3 Lymph # (Auto) 1.0 L [place] # (Auto) 0.7 Eos # (Auto) 0.2 Baso # (Auto) 0.0 Seg Neutrophils % 70.8 H Seg Neutrophils # 4.7 PT INR APTT Sodium Potassium Chloride Carbon Dioxide Anion Gap BUN Creatinine Estimated GFR BUN/Creatinine Ratio Glucose POC Glucose Lactic Acid 1.50 Calcium Total Bilirubin AST ALT Alkaline Phosphatase Total Protein Albumin Albumin/Globulin Ratio Urine Color Urine Turbidity Urine pH Ur Specific [place] Urine Protein Urine Glucose (UA) Urine Ketones Urine Blood Urine Nitrite Urine Bilirubin Urine Urobilinogen Ur Leukocyte Esterase Urine WBC (Auto) Urine RBC (Auto) U Epithel Cells (Auto) Urine Bacteria (Auto) Urine Mucus Urine Yeast (Budding) Urine Sodium Blood Type A POSITIVE Antibody Screen Negative Crossmatch See Detail 04/28/21 04/28/21 04/28/21 06:53 06:53 07:42 WBC RBC Hgb Hct MCV MCH MCHC RDW Plt Count Lymph % (Auto) [place] % (Auto) Eos % (Auto) Baso % (Auto) Lymph # (Auto) [place] # (Auto) Eos # (Auto) Baso # (Auto) Seg Neutrophils % Seg Neutrophils # PT 22.4 H INR 1.92 H APTT Sodium 140 Potassium 5.0 Chloride 108.0 H Carbon Dioxide 20 L Anion Gap 17 BUN 35 H Creatinine 2.6 H Estimated GFR 24 BUN/Creatinine Ratio 13 Glucose 164 H POC Glucose 158 H Lactic Acid Calcium 7.2 L Total Bilirubin AST ALT Alkaline Phosphatase Total Protein Albumin Albumin/Globulin Ratio Urine Color Urine Turbidity Urine pH Ur Specific [place] Urine Protein Urine Glucose (UA) Urine Ketones Urine Blood Urine Nitrite Urine Bilirubin Urine Urobilinogen Ur Leukocyte Esterase Urine WBC (Auto) Urine RBC (Auto) U Epithel Cells (Auto) Urine Bacteria (Auto) Urine Mucus Urine Yeast (Budding) Urine Sodium Blood Type Antibody Screen Crossmatch 04/28/21 04/28/21 04/28/21 11:49 12:30 12:30 WBC RBC Hgb Hct MCV MCH MCHC RDW Plt Count Lymph % (Auto) [place] % (Auto) Eos % (Auto) Baso % (Auto) Lymph # (Auto) [place] # (Auto) Eos # (Auto) Baso # (Auto) Seg Neutrophils % Seg Neutrophils # PT INR APTT Sodium Potassium Chloride Carbon Dioxide Anion Gap BUN Creatinine Estimated GFR BUN/Creatinine Ratio Glucose POC Glucose 149 H Lactic Acid Calcium Total Bilirubin AST ALT Alkaline Phosphatase Total Protein Albumin Albumin/Globulin Ratio Urine Color [place] Urine Turbidity Cloudy Urine pH 5.0 Ur Specific [place] 1.015 Urine Protein >500 Urine Glucose (UA) 50 Urine Ketones Neg Urine Blood Lg Urine Nitrite Neg Urine Bilirubin Neg Urine Urobilinogen < 2.0 Ur Leukocyte Esterase Neg Urine WBC (Auto) 13.0 H Urine RBC (Auto) > 182.0 U Epithel Cells (Auto) 2.0 Urine Bacteria (Auto) 4+ Urine Mucus Few Urine Yeast (Budding) 2+ Urine Sodium 35 Blood Type Antibody Screen Crossmatch Assessment and Plan Case was discussed in detail with the patient's brother. Could either attempt colonoscopy versus just hold the Eliquis and monitor given the patient's medical comorbidities Patient's brother who is the caregiver and decision-maker wishes to proceed with colonoscopy therefore will prep patient for colonoscopy tomorrow Differential diagnosis for source of bleed includes AVMs polyps mass etc. - Patient Problems (1) Anemia Current Visit: Yes Status: Acute Qualifiers: Anemia type: unspecified type Qualified Code(s): D64.9 - Anemia, un specified (2) Melena Current Visit: Yes Status: Acute
[2021-04-28 14:34] LABS: Creatinine,Urine 116.6 mg/dL (0.1-20.0)
[2021-04-28] MEDS ORDERED: POLYETHYLENE GLYCOL/ELECT SOLN 4000 ML PO ONE (15:17)
--- NOTE | 2021-04-28 16:33 | Consultation ---
History of Present Illness Consult date: 04/28/21 Requesting physician: FIORELLA MEDRANO Reason for consult: other (Acute GI Bleed; HTNsive Emergency) History of present illness: PULMONARY/CCM CONSULT NOTE (Full dictation # [id number]) Please see dictated notes for full details Past History Past Medical History: atrial fib, arthritis, diabetes, heart failure, hypertension, renal failure (Chronic), other (Dementia,Neuropathy) Past Surgical History: No surgical history Social history: no significant social history Family history: no significant family history Medications and Allergies Allergies Allergy/AdvReac Type Severity Reaction Status Date / Time hydralazine Allergy Vomiting Verified 04/28/21 02:00 isosorbide [From Imdur] Allergy Unknown Verified 04/28/21 02:00 tramadol Allergy Shortness Verified 04/28/21 02:00 of Breath Home Medications Medication Instructions Recorded Confirmed Last Taken Type Pantoprazole Sodium 40 mg PO BID #60 tablet. 04/16/21 04/28/21 04/26/21 21:00 Rx Acetaminophen/Diphenhydramine 2 each PO TID PRN 04/28/21 04/28/21 04/26/21 21:00 History [Tylenol Pm Ex-Strength Caplet] Apixaban [Eliquis] 5 mg PO BID 04/28/21 04/28/21 04/26/21 21:00 History AtorvaSTATin [Lipitor] 40 mg PO QHS 04/28/21 04/28/21 04/26/21 21:00 History B Complex W/Vitamin C [Allbee with 500 mg PO DAILY 04/28/21 04/28/21 04/26/21 09:00 History C] Ferrous Sulfate [Ferrous Sulfate 324 mg PO BID 04/28/21 04/28/21 04/26/21 21:00 History 324 MG] Insulin Glargine,Hum.rec.anlog 25 unit SQ HS PRN 04/28/21 04/28/21 04/26/21 21:00 History [Lantus Solostar] Novolin 70-30 Flexpen 4 units SUB-Q PRN PRN 04/28/21 04/28/21 04/25/21 02:10 History Sennosides Tab [Senokot] 8.6 mg PO DAILY 04/28/21 04/28/21 04/26/21 21:00 History Tamsulosin [Flomax] 0.4 mg PO QDAY 04/28/21 04/28/21 04/26/21 09:00 History carvediloL [Coreg] 6.25 mg PO BID 04/28/21 04/28/21 04/26/21 21:00 History lisinopriL [Zestril] 5 mg PO QDAY 04/28/21 04/28/21 04/26/21 09:00 History Active Meds: Active Medications Clonidine HCl (Clonidine Tts 0.2 Mg/24 Hr Patch) 0.2 mg TD We [facility] Last Admin: 04/28/21 00:59 Dose: 0.2 mg Documented by: Dextrose (Dextrose 50% In Water (25gm) 50 Ml Syringe) 50 ml IV Q30MIN PRN; Protocol PRN Reason: Hypoglycemia Sodium Chloride (Nacl 0.9% 1000 Ml) 1,000 mls @ 75 mls/hr IV DIRECT NATALIA Last Admin: 04/28/21 00:56 Dose: 75 mls/hr Documented by: Insulin Human Lispro (Insulin Lispro 100 Unit/Ml) 0 unit SUB-Q ACHS NATALIA; Protocol Last Admin: 04/28/21 12:00 Dose: Not Given Documented by: Metoprolol Tartrate (Metoprolol Tartrate 5 Mg/5 Ml Inj) 5 mg IV Q6HR PRN PRN Reason: SBP>165, DBP>95 Last Admin: 04/28/21 01:10 Dose: 5 mg Documented by: Morphine Sulfate (Morphine 2 Mg/1 Ml Inj) 2 mg IV Q4H PRN PRN Reason: Pain, Moderate (4-6) Last Admin: 04/28/21 13:16 Dose: 2 mg Documented by: Ondansetron HCl (Ondansetron 4 Mg/2 Ml Inj) 4 mg IV Q8H PRN PRN Reason: Nausea And Vomiting Pantoprazole Sodium (Pantoprazole 40 Mg Inj) 40 mg IV BID [facility] Last Admin: 04/28/21 09:31 Dose: 40 mg Documented by: Sodium Chloride (Sodium Chloride 0.9% 10 Ml Flush Syringe) 10 ml IV BID [facility] Last Admin: 04/28/21 09:32 Dose: 10 ml Documented by: Sodium Chloride (Sodium Chloride 0.9% 10 Ml Flush Syringe) 10 ml IV PRN PRN PRN Reason: LINE FLUSH Physical Examination Vital signs: Vital Signs Pulse Resp 94 H 18 04/27/21 19:16 04/27/21 19:16 Results - Laboratory Findings CBC and BMP: 04/28/21 06:53 04/28/21 06:53 PT/INR, D-dimer PT 22.4 Sec. (12.2-14.9) H 04/28/21 06:53 INR 1.92 (0.87-1.13) H 04/28/21 06:53 Abnormal lab findings: Abnormal Labs 04/27/21 04/27/21 04/27/21 19:31 19:46 19:46 RBC 2.45 L Hgb 7.2 L Hct 21.6 L RDW 17.1 H [place] % (Auto) 8.4 H Lymph # (Auto) 0.8 L Seg Neutrophils % 72.4 H PT 22.3 H INR 1.91 H APTT 48.5 H Potassium 5.4 H Chloride Carbon Dioxide 21 L BUN 36 H Creatinine 2.5 H Glucose 166 H POC Glucose Calcium 7.9 L Total Protein 6.2 L Albumin 2.4 L Urine WBC (Auto) Urine Creatinine Crossmatch 04/27/21 04/28/21 04/28/21 19:46 06:53 06:53 RBC 2.93 L Hgb 8.4 L Hct 25.3 L RDW 16.3 H [place] % (Auto) 10.1 H Lymph # (Auto) 1.0 L Seg Neutrophils % 70.8 H PT 22.4 H INR 1.92 H APTT Potassium Chloride Carbon Dioxide BUN Creatinine Glucose POC Glucose Calcium Total Protein Albumin Urine WBC (Auto) Urine Creatinine Crossmatch See Detail 04/28/21 04/28/21 04/28/21 06:53 07:42 11:49 RBC Hgb Hct RDW [place] % (Auto) Lymph # (Auto) Seg Neutrophils % PT INR APTT Potassium Chloride 108.0 H Carbon Dioxide 20 L BUN 35 H Creatinine 2.6 H Glucose 164 H POC Glucose 158 H 149 H Calcium 7.2 L Total Protein Albumin Urine WBC (Auto) Urine Creatinine Crossmatch 04/28/21 04/28/21 12:30 12:30 RBC Hgb Hct RDW [place] % (Auto) Lymph # (Auto) Seg Neutrophils % PT INR APTT Potassium Chloride Carbon Dioxide BUN Creatinine Glucose POC Glucose Calcium Total Protein Albumin Urine WBC (Auto) 13.0 H Urine Creatinine 116.6 H Crossmatch
--- NOTE | 2021-04-28 16:59 | Progress Note ---
Assessment and Plan -- Upper GI bleed Consult placed to research and development scientist for evaluation. Meanwhile patient has been started on proton pump inhibitor. Continue to hold anticoagulation and monitor H&H -- Acute on chronic renal failure Likely due to vasomotor nephropathy versus ATN Consult placed to nephrology for evaluation. We will monitor BUN and creatinine. Continue IV fluid -- Hypertensive urgency, malignant Patient was on Cardene drip which was later tapered off. We will monitor blood pressure closely. Resume his home medications -- Atrial fibrillation, chronic Rate currently controlled. We hold anticoagulation meanwhile in view of the GI bleed Consult cardiology and follow recommendation --Dementia, continue supportive care -- DVT prophylaxis Patient placed on sequential compression device. -- Full code status Brief history: 70-year-old male with h/o atrial fib, arthritis, diabetes, heart failure, hyper tension, chronic renal failure, Dementia, Neuropathy presented to the emergency room complaining of dark stool and generalized fatigue for few days. Patient had similar presentation during his prior admission and was recently discharged on 04/16/2021 after having an endoscopy which showed no acute bleeding. Patient has been on anticoagulation with Eliquis which was on hold during discharge. According to patient brother dose was recently increased to 5 mg twice a day few days ago and thereafter patient started having dark stools. Labs were drawn sometime yesterday patient was found to be anemic, He got a call from the [facility] and was encouraged to be taken to the hospital for possible blood transfusion. Upon arrival in the emergency room blood pressure was quite elevated with systolic of about 216 and diastolic of 119 mmHg. He was subsequently placed on nicardipine drip which was later tapered off. Work-up in the ER reveals a hemoglobin of 7.2 and hematocrit of 21.6. Potassium was slightly elevated at 5.4, also had elevated BUN and creatinine. Patient was admitted for GI bleed. Daily clinical course; 04/28/21: hold eliquis, cont to follow H/H, follow GI recommendation-plan for endoscopy tomorrow. will also consult cardiology to make recommendation for chronic anticoagulation use in the light of recurrent GI bleed. Subjective Date of service: 04/28/21 Interval history: Patient seen and examined. Medical records and medication list reviewed. No acute event overnight noted by the RN. BP stable no active bleeding overnight Discussed plan of care with RN and with patient and brother at the bedside Keep n.p.o. for now Patient has no acute issue Objective - Exam Narrative Exam: GENERAL: well-developed elderly white male lying on bed appeared to be lethargic and stuporous. Open eyes with verbal command HEENT: Normocephalic. Atraumatic. No conjunctival congestion or icterus. Patient has moist mucous membranes. NECK: Supple. Trachea midline. CHEST/LUNGS: Clear to auscultated bilaterally, breathing nonlabored. No wheezes crackles or rhonchi. HEART/CARDIOVASCULAR: Regular in rate and rhythm. S1 and S2 positive. ABDOMEN: Abdomen is soft, nontender. Patient has normal bowel sounds. SKIN: There is no rash. Warm and dry. NEURO: No focal motor deficit. Follows verbal command. MUSCULOSKELETAL: No joint effusion or tenderness. EXTRIMITY: No edema, no cyanosis or clubbing. PSYCH: Patient is nonverbal and unable to assess. - Constitutional Vitals: Vital Signs - 12hr 04/28/21 04/28/21 04/28/21 05:01 05:30 06:01 Temperature Pulse Rate 79 79 75 Pulse Rate [ From Monitor] Respiratory 21 18 Rate Blood Pressure 140/89 148/105 113/83 O2 Sat by Pulse 96 96 97 Oximetry 04/28/21 04/28/21 04/28/21 06:30 07:00 07:31 Temperature Pulse Rate 74 83 88 Pulse Rate [ From Monitor] Respiratory 21 20 24 Rate Blood Pressure 125/85 117/98 111/55 O2 Sat by Pulse 99 97 96 Oximetry 04/28/21 04/28/21 04/28/21 08:00 08:01 08:31 Temperature 97.5 F L Pulse Rate 78 76 76 Pulse Rate [ 78 From Monitor] Respiratory 18 19 Rate Blood Pressure 160/78 63/33 O2 Sat by Pulse 97 98 Oximetry 04/28/21 04/28/21 04/28/21 09:01 09:31 10:01 Temperature Pulse Rate 74 84 73 Pulse Rate [ From Monitor] Respiratory 19 24 21 Rate Blood Pressure 181/154 181/154 194/92 O2 Sat by Pulse 99 99 97 Oximetry 04/28/21 04/28/21 04/28/21 10:31 11:00 11:31 Temperature Pulse Rate 71 80 Pulse Rate [ From Monitor] Respiratory 21 24 20 Rate Blood Pressure 129/40 210/84 142/68 O2 Sat by Pulse 98 97 98 Oximetry 04/28/21 04/28/21 04/28/21 12:00 12:30 13:00 Temperature 97.5 F L Pulse Rate 78 76 77 Pulse Rate [ 78 From Monitor] Respiratory 24 25 H 12 Rate Blood Pressure 142/68 129/61 129/61 O2 Sat by Pulse 99 98 95 Oximetry 04/28/21 04/28/21 04/28/21 13:30 14:00 14:30 Temperature Pulse Rate 65 69 67 Pulse Rate [ From Monitor] Respiratory 19 22 21 Rate Blood Pressure 172/70 185/45 157/65 O2 Sat by Pulse 96 97 98 Oximetry 04/28/21 04/28/21 04/28/21 15:00 15:30 16:00 Temperature Pulse Rate 64 72 67 Pulse Rate [ 72 From Monitor] Respiratory 21 19 21 Rate Blood Pressure 164/70 164/70 141/81 O2 Sat by Pulse 99 99 98 Oximetry 04/28/21 16:30 Temperature Pulse Rate 69 Pulse Rate [ From Monitor] Respiratory 20 Rate Blood Pressure 141/81 O2 Sat by Pulse 96 Oximetry - Labs CBC & Chem 7: 04/29/21 07:00 04/30/21 04:29 Labs: Abnormal lab results 04/27/21 04/27/21 04/27/21 Range/Units 19:31 19:46 19:46 RBC 2.45 L (3.65-5.03) M/mm3 Hgb 7.2 L (11.8-15.2) gm/dl Hct 21.6 L (35.5-45.6) % RDW 17.1 H (13.2-15.2) % [place] % (Auto) 8.4 H (0.0-7.3) % Lymph # (Auto) 0.8 L (1.2-5.4) K/mm3 Seg Neutrophils % 72.4 H (40.0-70.0) % PT 22.3 H (12.2-14.9) Sec. INR 1.91 H (0.87-1.13) APTT 48.5 H (24.2-36.6) Sec. Potassium 5.4 H (3.6-5.0) mmol/L Chloride (98-107) mmol/L Carbon Dioxide 21 L (22-30) mmol/L BUN 36 H (9-20) mg/dL Creatinine 2.5 H (0.8-1.3) mg/dL Glucose 166 H (75-100) mg/dL POC Glucose (70-105) mg/dL Calcium 7.9 L (8.4-10.2) mg/dL Total Protein 6.2 L (6.3-8.2) g/dL Albumin 2.4 L (3.9-5) g/dL Urine WBC (Auto) (0.0-6.0) /HPF Urine Creatinine (0.1-20.0) mg/dL Crossmatch 04/27/21 04/28/21 04/28/21 Range/Units 19:46 06:53 06:53 RBC 2.93 L (3.65-5.03) M/mm3 Hgb 8.4 L (11.8-15.2) gm/dl Hct 25.3 L (35.5-45.6) % RDW 16.3 H (13.2-15.2) % [place] % (Auto) 10.1 H (0.0-7.3) % Lymph # (Auto) 1.0 L (1.2-5.4) K/mm3 Seg Neutrophils % 70.8 H (40.0-70.0) % PT 22.4 H (12.2-14.9) Sec. INR 1.92 H (0.87-1.13) APTT (24.2-36.6) Sec. Potassium (3.6-5.0) mmol/L Chloride (98-107) mmol/L Carbon Dioxide (22-30) mmol/L BUN (9-20) mg/dL Creatinine (0.8-1.3) mg/dL Glucose (75-100) mg/dL POC Glucose (70-105) mg/dL Calcium (8.4-10.2) mg/dL Total Protein (6.3-8.2) g/dL Albumin (3.9-5) g/dL Urine WBC (Auto) (0.0-6.0) /HPF Urine Creatinine (0.1-20.0) mg/dL Crossmatch See Detail 04/28/21 04/28/21 04/28/21 Range/Units 06:53 07:42 11:49 RBC (3.65-5.03) M/mm3 Hgb (11.8-15.2) gm/dl Hct (35.5-45.6) % RDW (13.2-15.2) % [place] % (Auto) (0.0-7.3) % Lymph # (Auto) (1.2-5.4) K/mm3 Seg Neutrophils % (40.0-70.0) % PT (12.2-14.9) Sec. INR (0.87-1.13) APTT (24.2-36.6) Sec. Potassium (3.6-5.0) mmol/L Chloride 108.0 H (98-107) mmol/L Carbon Dioxide 20 L (22-30) mmol/L BUN 35 H (9-20) mg/dL Creatinine 2.6 H (0.8-1.3) mg/dL Glucose 164 H (75-100) mg/dL POC Glucose 158 H 149 H (70-105) mg/dL Calcium 7.2 L (8.4-10.2) mg/dL Total Protein (6.3-8.2) g/dL Albumin (3.9-5) g/dL Urine WBC (Auto) (0.0-6.0) /HPF Urine Creatinine (0.1-20.0) mg/dL Crossmatch 04/28/21 04/28/21 Range/Units 12:30 12:30 RBC (3.65-5.03) M/mm3 Hgb (11.8-15.2) gm/dl Hct (35.5-45.6) % RDW (13.2-15.2) % [place] % (Auto) (0.0-7.3) % Lymph # (Auto) (1.2-5.4) K/mm3 Seg Neutrophils % (40.0-70.0) % PT (12.2-14.9) Sec. INR (0.87-1.13) APTT (24.2-36.6) Sec. Potassium (3.6-5.0) mmol/L Chloride (98-107) mmol/L Carbon Dioxide (22-30) mmol/L BUN (9-20) mg/dL Creatinine (0.8-1.3) mg/dL Glucose (75-100) mg/dL POC Glucose (70-105) mg/dL Calcium (8.4-10.2) mg/dL Total Protein (6.3-8.2) g/dL Albumin (3.9-5) g/dL Urine WBC (Auto) 13.0 H (0.0-6.0) /HPF Urine Creatinine 116.6 H (0.1-20.0) mg/dL Crossmatch
[2021-04-28] MEDS: carvediloL 3.125 MG TAB PO SCH ×2 (21:40→22:47)
[2021-04-28] MEDS ORDERED: carvediloL 6.25 MG TAB PO SCH (22:00)
[2021-04-29] MEDS: MORPHINE 2 MG/1 ML INJ IV PRN ×5 (01:17→20:48)
[2021-04-29] MEDS: SODIUM CHLORIDE 0.9% 1000 ML 1,000 ML IV SCH (05:00)
--- NOTE | 2021-04-29 05:28 | Consultation ---
DATE OF CONSULTATION: 04/28/2021 PULMONARY CRITICAL CARE CONSULT NOTE CONSULTING PHYSICIAN: Dr. Herb Alvarado. REASON FOR CONSULTATION: Acute GI bleed, symptomatic anemia, hypertensive emergency. CHIEF COMPLAINT AND HISTORY OF PRESENT ILLNESS: The patient is a now 70-year-old male with a past medical history significant amongst other things for a GI bleed in the past, but also atrial fibrillation history given by his brother who I have met in the room, who came into the Emergency Room yesterday complaining of dark stools that had started few days before presentation. He had denied abdominal pain. Denied fevers or chills. Denied shortness of breath or chest pain. They denied any sick contacts, recent travel or ____ COVID-19. The patient reportedly has been on anticoagulation with Eliquis, presumably for atrial fibrillation and his dose was recently increased to twice daily dosing according to the brother. Since then, the patient has had black stools. He got a call from the [place] today where labs have been drawn and he was told that his blood count was low and he needs to go to the hospital. In the Emergency Room, he actually had hypertensive, blood pressure 216/119. He was placed on a nicardipine drip and ICU admission was requested. He also had a GI consult placed. When I stopped by to see him, he was resting in bed. Of note, he had a little bit of a contracture to the right upper extremity. The brother denies a history of a cerebrovascular accident, but states that the contractures have been blamed on a polyneuropathy. He does not have any history of hematemesis. Brother denies bright red blood per rectum. There really is as much of the history of presentation as I have. With regards to tobacco use/abuse history, the brother said he used to be a smoker, but quit smoking almost 40 years ago, really is as much of the history of presentation as I have. PAST MEDICAL HISTORY: Hypertension, congestive heart failure, diabetes, arthritis-gouty. He has a history of atrial fibrillation, chronic kidney disease, history of peripheral neuropathy, and a history of a peptic ulcer and a history of dementia. PAST SURGICAL HISTORY: None. MEDICATIONS: He was on at the time I stopped by to see him, according to the medication administration record included the following: Clonidine patch 0.2 mg transdermally once weekly, insulin via sliding scale, metoprolol 5 mg IV q. 6 hours p.r.n., systolic greater than 165, diastolic greater than 95 mmHg; morphine sulfate 2 mg IV q. 4 hours p.r.n. moderate pain, Zofran 4 mg IV q. 8 hours p.r.n. nausea and vomiting, Protonix drip had been going at 8 mg per hour; IV normal saline 75 mL per hour. ALLERGIES: HYDRALAZINE, ISOSORBIDE, TRAMADOL. Nature of this allergy is unknown. DIET: Obese gentleman, slightly obese, acute weight loss or gain, history is unknown. SOCIAL HISTORY: Lives in the community with his brothers and his caregiver. He has a remote tobacco smoking history. No current alcohol, tobacco or illicit drug use or abuse. FAMILY HISTORY: Otherwise unknown. REVIEW OF SYSTEMS: Difficult to obtain secondary to patient's medical condition. Since he has been here, no gross hematochezia has been reported. No gross hematuria, no hematemesis, no witnessed seizures. Review of systems otherwise unobtainable or as in the body of history above. PHYSICAL EXAMINATION: At presentation in the Emergency Room, VITAL SIGNS: Showed that the patient was afebrile, temperature 97.5 degrees Fahrenheit, pulse of 94, respiratory rate of 21, blood pressure 245/106, O2 sats were 98%; inspired oxygen concentration at that time was not recorded. When I stopped by to see him, O2 sats were 98% and I believe that was on room air. GENERAL: Elderly looking male. Normocephalic, atraumatic. Resting in bed with normal respiratory effort at rest. HEENT: Anicteric. No conjunctival erythema. Oropharynx was moist. NECK: No gross jugular venous distention, no thyromegaly. Grossly, there were no palpable lymph nodes in the supraclavicular or submandibular lymph node chains. LUNGS: Auscultation of both lung bryant positive for diminished bilateral breath sounds. He did have clear lungs. No wheezing. HEART: Sounds 1 and 2 are heard at the time of my evaluation, ____ in rate and rhythm without overt rubs or murmurs. ABDOMEN: Soft, full, protuberant. Bowel sounds are positive, but hyperactive. Nontender. No palpable hepatosplenomegaly. EXTREMITIES: Without overt digital clubbing or cyanosis. He has a right below-knee amputation. Pedal pulses are 2+ on the left lower extremity. NEUROLOGIC: Pupils are equal, round, about 3 mm, reactive to light. Extraocular muscle movements appear intact. He has contractures of the right upper extremity and really was not following my prompts. SKIN: Normal turgor in the areas examined. He did have a rash to the left lower extremity. Please see the wound care nurses' notes for full description of his skin as mentioned, he had a right [id number] amputation without any significant dehiscence of the stoma line or the suture line. PSYCHIATRIC: Mood and affect were somewhat anxious when aroused otherwise flat. He had very poor insight and judgment. LABORATORY DATA: From my review are as follows: Admission white cell count 5600, hemoglobin was 7.2, hematocrit 21.6, platelet count was 185. INR was 1.91. Serum sodium was 138, potassium 5.4, chloride 104, bicarbonate 21, BUN 36, creatinine 2.5, glucose 166. Lactic acid level within normal limits. Liver function test within normal limits. Urinalysis was negative for nitrites and leukocyte esterase. He did have 13 white cells per high power field, 4+ bacteria. No radiographic studies for my review. ASSESSMENT: 1. Acute gastrointestinal bleed. 2. Hypertensive emergency. 3. Atrial fibrillation, rate controlled. 4. Diabetes. 5. History of arthritis. 6. Acute kidney injury. 7. History of dementia. PLAN: He is doing relatively stable. He has been seen by the GI team. It seems according to the brother that the plan is to do a colonoscopy. Protonix drip has been downgraded to b.i.d. PPI therapy. Oxygen will be offered as necessary to keep sats greater than or equal to about 90%. Aspiration precautions will be maintained. I believe he is n.p.o. for now. Electrolytes were followed and corrected as necessary. Flu and pneumonia vaccination will be addressed per protocol. Thank you very much for the consult. We will follow along and make further recommendations as picture progresses/becomes clearer. TID: [id number] RECEIPT: [id number] CARMELO/EMELINA/CHRISTI ADAMSON
[2021-04-29 07:15] LABS: Basophils % (Auto) 0.3 % (0.0-1.8); Eosinophils # (Auto) 0.2 K/mm3 (0.0-0.4); Hematocrit 23.3 % (35.5-45.6); Hemoglobin 7.9 gm/dl (11.8-15.2); Lymphocytes # (Auto) 0.7 K/mm3 (1.2-5.4); Lymphocytes % (Auto) 11.3 % (13.4-35.0); Mean Corpuscular HGB Conc 34 % (32-34); Mean Corpuscular Volume 87 fl (84-94); Monocytes # (Auto) 0.6 K/mm3 (0.0-0.8); Monocytes % (Auto) 9.4 % (0.0-7.3); Platelet Count 155 K/mm3 (140-440); Red Blood Count 2.66 M/mm3 (3.65-5.03); Red Cell Distribution Width 16.7 % (13.2-15.2)
--- NOTE | 2021-04-29 07:56 | Gastroenterology Progress Note ---
Assessment and Plan Patient did not prep We do not have the capacity to perform procedures over weekends, therefore could not even attempt a colonoscopy until Sunday Given inability to prep patient for procedure would recommend just hold the Eliquis and monitor given the patient's medical comorbidities GI will sign off please call back if we can be of any further assistance - Patient Problems (1) Anemia Current Visit: Yes Status: Acute Qualifiers: Anemia type: unspecified type Qualified Code(s): D64.9 - Anemia, unspecified (2) Melena Current Visit: Yes Status: Acute Subjective Date of service: 04/29/21 Principal diagnosis: gi bleed Interval history: spoke with nurse who said patient refused to drink prep (or take any medication) once the brother left, and he is not clear (not prepped for the colon) Brother not present this morning at bedside Objective - Constitutional Vitals: Temp Pulse Resp BP Pulse Ox 97.6 F 75 16 128/103 96 04/29/21 07:00 04/29/21 06:00 04/29/21 06:00 04/29/21 06:00 04/29/21 06:00 - Respiratory Respiratory effort: normal - Labs CBC & Chem 7: 04/29/21 07:00 04/29/21 07:00 Labs: Laboratory Results - last 24 hr 04/28/21 04/28/21 04/28/21 07:42 11:49 12:30 WBC RBC Hgb Hct MCV MCH MCHC RDW Plt Count Lymph % (Auto) [place] % (Auto) Eos % (Auto) Baso % (Auto) Lymph # (Auto) [place] # (Auto) Eos # (Auto) Baso # (Auto) Seg Neutrophils % Seg Neutrophils # Sodium Potassium Chloride Carbon Dioxide Anion Gap BUN Creatinine Estimated GFR BUN/Creatinine Ratio Glucose POC Glucose 158 H 149 H Calcium Urine Color [place] Urine Turbidity Cloudy Urine pH 5.0 Ur Specific [place] 1.015 Urine Protein >500 Urine Glucose (UA) 50 Urine Ketones Neg Urine Blood Lg Urine Nitrite Neg Urine Bilirubin Neg Urine Urobilinogen < 2.0 Ur Leukocyte Esterase Neg Urine WBC (Auto) 13.0 H Urine RBC (Auto) > 182.0 U Epithel Cells (Auto) 2.0 Urine Bacteria (Auto) 4+ Urine Mucus Few Urine Yeast (Budding) 2+ Urine Creatinine Urine Sodium 04/28/21 04/28/21 04/28/21 12:30 16:42 21:10 WBC RBC Hgb Hct MCV MCH MCHC RDW Plt Count Lymph % (Auto) [place] % (Auto) Eos % (Auto) Baso % (Auto) Lymph # (Auto) [place] # (Auto) Eos # (Auto) Baso # (Auto) Seg Neutrophils % Seg Neutrophils # Sodium Potassium Chloride Carbon Dioxide Anion Gap BUN Creatinine Estimated GFR BUN/Creatinine Ratio Glucose POC Glucose 157 H 144 H Calcium Urine Color Urine Turbidity Urine pH Ur Specific [place] Urine Protein Urine Glucose (UA) Urine Ketones Urine Blood Urine Nitrite Urine Bilirubin Urine Urobilinogen Ur Leukocyte Esterase Urine WBC (Auto) Urine RBC (Auto) U Epithel Cells (Auto) Urine Bacteria (Auto) Urine Mucus Urine Yeast (Budding) Urine Creatinine 116.6 H Urine Sodium 35 04/29/21 04/29/21 07:00 07:00 WBC 6.5 RBC 2.66 L Hgb 7.9 L Hct 23.3 L MCV 87 MCH 30 MCHC 34 RDW 16.7 H Plt Count 155 Lymph % (Auto) 11.3 L [place] % (Auto) 9.4 H Eos % (Auto) 3.0 Baso % (Auto) 0.3 Lymph # (Auto) 0.7 L [place] # (Auto) 0.6 Eos # (Auto) 0.2 Baso # (Auto) 0.0 Seg Neutrophils % 76.0 H Seg Neutrophils # 4.9 Sodium 141 Potassium 5.1 H Chloride 108.3 H Carbon Dioxide 18 L Anion Gap 20 BUN 42 H Creatinine 3.0 H Estimated GFR 21 BUN/Creatinine Ratio 14 Glucose 172 H POC Glucose Calcium 8.0 L Urine Color Urine Turbidity Urine pH Ur Specific [place] Urine Protein Urine Glucose (UA) Urine Ketones Urine Blood Urine Nitrite Urine Bilirubin Urine Urobilinogen Ur Leukocyte Esterase Urine WBC (Auto) Urine RBC (Auto) U Epithel Cells (Auto) Urine Bacteria (Auto) Urine Mucus Urine Yeast (Budding) Urine Creatinine Urine Sodium
[2021-04-29] MEDS: INSULIN LISPRO 100 UNIT/ML SUB-Q SCH ×4 (08:45→23:57)
[2021-04-29] MEDS: TAMSULOSIN 0.4 MG CAP PO SCH ×2 (09:22→09:51)
[2021-04-29] MEDS: PANTOPRAZOLE 40 MG INJ IV SCH ×2 (09:22→22:07)
[2021-04-29] MEDS: carvediloL 3.125 MG TAB PO SCH ×3 (09:22→22:07)
[2021-04-29] MEDS: SODIUM POLYSTYRENE 15 GM/60 ML ORAL LIQD PO ONE ×2 (09:23→11:09)
--- NOTE | 2021-04-29 11:09 | Consultation ---
History of Present Illness Consult date: 04/29/21 Consult reason: atrial fibrillation History of present illness: 70-year old M who was hospitalized at this hospital 2 weeks ago with severe anemia and GI bleed. He was readmitted 2 days ago with severe anemia, GI bleed, severe uncontrolled hypertension, and acute kidney injury. Initial labs shows a HCT of 21.6. INR at 1.9. Creatinine of 2.5, from 1.3 on labs done here 2 weeks ago. History is unobtainable due to underlying dementia. Review of records reports he has a history of PAD s/p right BKA, Diabetes, Hypertension, CHF, and chronic an emia. He also has a persistent atrial fibrillation. Home medications list he takes Eliquis for oral anticoagulation. Records reports he receives his usual care at the [facility] but there are no records available for review. A cardiac consultation has been requested for management of atrial fibrillation. There is no ECG available for review but telemetry strips shows atrial fibrillation with a well controlled ventricular rate. Past History Past Medical History: atrial fib, arthritis, diabetes, heart failure, hypertension, renal failure (Chronic), other (Dementia,Neuropathy) Past Surgical History: No surgical history Social history: no significant social history Family history: no significant family history Medications and Allergies Allergies Allergy/AdvReac Type Severity Reaction Status Date / Time hydralazine Allergy Vomiting Verified 04/28/21 02:00 isosorbide [From Imdur] Allergy Unknown Verified 04/28/21 02:00 tramadol Allergy Shortness Verified 04/28/21 02:00 of Breath Home Medications Medication Instructions Recorded Confirmed Last Taken Type Pantoprazole Sodium 40 mg PO BID #60 tablet. 04/16/21 04/28/21 04/26/21 21:00 Rx Acetaminophen/Diphenhydramine 2 each PO TID PRN 04/28/21 04/28/21 04/26/21 21:00 History [Tylenol Pm Ex-Strength Caplet] Apixaban [Eliquis] 5 mg PO BID 04/28/21 04/28/21 04/26/21 21:00 History AtorvaSTATin [Lipitor] 40 mg PO QHS 04/28/21 04/28/21 04/26/21 21:00 History B Complex W/Vitamin C [Allbee with 500 mg PO DAILY 04/28/21 04/28/21 04/26/21 09:00 History C] Ferrous Sulfate [Ferrous Sulfate 324 mg PO BID 04/28/21 04/28/21 04/26/21 21:00 History 324 MG] Insulin Glargine,Hum.rec.anlog 25 unit SQ HS PRN 04/28/21 04/28/21 04/26/21 21:00 History [Lantus Solostar] Novolin 70-30 Flexpen 4 units SUB-Q PRN PRN 04/28/21 04/28/21 04/25/21 02:10 History Sennosides Tab [Senokot] 8.6 mg PO DAILY 04/28/21 04/28/21 04/26/21 21:00 History Tamsulosin [Flomax] 0.4 mg PO QDAY 04/28/21 04/28/21 04/26/21 09:00 History carvediloL [Coreg] 6.25 mg PO BID 04/28/21 04/28/21 04/26/21 21:00 History lisinopriL [Zestril] 5 mg PO QDAY 04/28/21 04/28/21 04/26/21 09:00 History Active Meds: Active Medications Atorvastatin Calcium (Atorvastatin 40 Mg Tab) 40 mg PO QHS NATALIA Last Admin: 04/28/21 22:47 Dose: Not Given Documented by: Carvedilol (Carvedilol 3.125 Mg Tab) 3.125 mg PO BID [facility] Last Admin: 04/29/21 09:51 Dose: Not Given Documented by: Clonidine HCl (Clonidine Tts 0.2 Mg/24 Hr Patch) 0.2 mg TD We [facility] Last Admin: 04/28/21 00:59 Dose: 0.2 mg Documented by: Dextrose (Dextrose 50% In Water (25gm) 50 Ml Syringe) 50 ml IV Q30MIN PRN; Protocol PRN Reason: Hypoglycemia Sodium Chloride (Nacl 0.9% 1000 Ml) 1,000 mls @ 75 mls/hr IV DIRECT NATALIA Last Admin: 04/29/21 05:00 Dose: 75 mls/hr Documented by: Insulin Human Lispro (Insulin Lispro 100 Unit/Ml) 0 unit SUB-Q ACHS NATALIA; Protocol Last Admin: 04/29/21 08:45 Dose: Not Given Documented by: Metoprolol Tartrate (Metoprolol Tartrate 5 Mg/5 Ml Inj) 5 mg IV Q6HR PRN PRN Reason: SBP>165, DBP>95 Last Admin: 04/28/21 01:10 Dose: 5 mg Documented by: Morphine Sulfate (Morphine 2 Mg/1 Ml Inj) 2 mg IV Q4H PRN PRN Reason: Pain, Moderate (4-6) Last Admin: 04/29/21 05:00 Dose: 2 mg Documented by: Ondansetron HCl (Ondansetron 4 Mg/2 Ml Inj) 4 mg IV Q8H PRN PRN Reason: Nausea And Vomiting Pantoprazole Sodium (Pantoprazole 40 Mg Inj) 40 mg IV BID [facility] Last Admin: 04/29/21 09:22 Dose: 40 mg Documented by: Sodium Chloride (Sodium Chloride 0.9% 10 Ml Flush Syringe) 10 ml IV BID [facility] Last Admin: 04/29/21 09:23 Dose: 10 ml Documented by: Sodium Chloride (Sodium Chloride 0.9% 10 Ml Flush Syringe) 10 ml IV PRN PRN PRN Reason: LINE FLUSH Tamsulosin HCl (Tamsulosin 0.4 Mg Cap) 0.4 mg PO QDAY [facility] Last Admin: 04/29/21 09:51 Dose: Not Given Documented by: Review of Systems ROS unobtainable: due to mental status Physical Examination Vital Signs Pulse Resp 94 H 18 04/27/21 19:16 04/27/21 19:16 General appearance: no acute distress HEENT: Positive: PERRL Cardiac: Positive: irregularly irregular, Systolic Murmur Lungs: Positive: Decreased Breath Sounds Results 04/29/21 07:00 04/29/21 07:00 CBC 04/29/21 Range/Units 07:00 WBC 6.5 (4.5-11.0) K/mm3 RBC 2.66 L (3.65-5.03) M/mm3 Hgb 7.9 L (11.8-15.2) gm/dl Hct 23.3 L (35.5-45.6) % Plt Count 155 (140-440) K/mm3 Lymph # (Auto) 0.7 L (1.2-5.4) K/mm3 [place] # (Auto) 0.6 (0.0-0.8) K/mm3 Eos # (Auto) 0.2 (0.0-0.4) K/mm3 Baso # (Auto) 0.0 (0.0-0.1) K/mm3 Comprehensive Metabolic Panel 04/29/21 Range/Units 07:00 Sodium 141 (137-145) mmol/L Potassium 5.1 H (3.6-5.0) mmol/L Chloride 108.3 H (98-107) mmol/L Carbon Dioxide 18 L (22-30) mmol/L BUN 42 H (9-20) mg/dL Creatinine 3.0 H (0.8-1.3) mg/dL Glucose 172 H (75-100) mg/dL Calcium 8.0 L (8.4-10.2) mg/dL Assessment and Plan Atrial fibrillation, persists Eliquis discontinued due to severe anemia and GI bleed Records reports he receives his usual care at the [facility]. Systolic murmur Anemia s/p transfusion of PRBCs GI bleed Acue kidney injury PAD s/p right BKA Hypertension Underlying dementia Diabetes Recommendations: Obtain a 12 lead ECG. Order an echocardiogram for murmur and LVEF assessment. Continue beta blockers for rate control of atrial fibrillation. Patient is considered no longer a candidate for AC due to severe anemia and GI bleed.
--- NOTE | 2021-04-29 11:51 | Progress Note ---
Assessment and Plan 1. Acute kidney injury: Likely vasomotor DAVID superimposed on CKD. ATN likely. Renal US negative for hydro. Monitor renal function. Continue IV fluids. Renal prognosis is guarded. Avoid nephrotoxic agents. Meds dosage based on GFR. 2. FEN: Hyperkalemia, pt not taking Kayexalate, monitor. Metabolic acidosis, started on bicarb drip, monitor. Monitor lytes and volume status. 3. GI bleed: Admitted with melena. Followed by GI. 4. Encephalopathy, POA: Likely chronic. ?baseline. 5. Hypertensive urgency: Patient was on Cardene drip which was later weaned off. Monitor blood pressure closely. 6. Atrial fibrillation: Rate currently controlled. Anticoagulation in view of the GI bleed. 7. DM type 2. Subjective: Patient was seen and examined at the bedside. Examination: General appearance: well-developed, appears stated age, not in distress HEENT: atraumatic, KEN Neck: trachea midline Respiratory: ctab Heart: S1S2, no murmur Abdomen: soft, bowel sounds heard, NT Integumentary: L foot dressing, chronic changes noted Neurologic: stuporous, opens eyes Ext: no edema, R BKA Subjective Date of service: 04/29/21 Principal diagnosis: gi bleed Objective - Vital Signs Vital signs: Vital Signs - 12hr 04/29/21 04/29/21 04/29/21 00:00 00:06 01:00 Temperature Pulse Rate 76 80 73 Pulse Rate [ From Monitor] Respiratory 12 15 18 Rate Respiratory Rate [ Generalized] Blood Pressure 94/66 94/66 155/79 O2 Sat by Pulse 97 98 98 Oximetry 04/29/21 04/29/21 04/29/21 01:17 01:47 02:00 Temperature Pulse Rate 77 Pulse Rate [ From Monitor] Respiratory 19 16 18 Rate Respiratory Rate [ Generalized] Blood Pressure 128/53 O2 Sat by Pulse 97 Oximetry 04/29/21 04/29/21 04/29/21 03:00 04:00 04:30 Temperature 97.5 F L Pulse Rate 76 71 76 Pulse Rate [ From Monitor] Respiratory 15 19 Rate Respiratory Rate [ Generalized] Blood Pressure 128/53 122/59 O2 Sat by Pulse 97 96 Oximetry 04/29/21 04/29/21 04/29/21 05:00 05:30 06:00 Temperature Pulse Rate 77 75 Pulse Rate [ From Monitor] Respiratory 13 16 16 Rate Respiratory Rate [ Generalized] Blood Pressure 128/103 128/103 O2 Sat by Pulse 95 96 Oximetry 04/29/21 04/29/21 04/29/21 07:00 08:00 09:00 Temperature 97.6 F Pulse Rate 78 74 82 Pulse Rate [ 80 From Monitor] Respiratory 9 L 20 13 Rate Respiratory Rate [ Generalized] Blood Pressure 112/82 121/56 121/56 O2 Sat by Pulse 96 97 97 Oximetry 04/29/21 04/29/21 10:00 11:00 Temperature Pulse Rate 77 72 Pulse Rate [ From Monitor] Respiratory 14 13 Rate Respiratory 22 Rate [ Generalized] Blood Pressure 124/51 137/61 O2 Sat by Pulse 98 98 Oximetry - Lab 04/29/21 07:00 04/29/21 07:00 Most recent lab results Calcium 8.0 mg/dL (8.4-10.2) L 04/29/21 07:00 Urine Creatinine 116.6 mg/dL (0.1-20.0) H 04/28/21 12:30 Urine Sodium 35 mmol/L 04/28/21 12:30 Medications & Allergies - Medications Allergies/Adverse Reactions: Allergies hydralazine Allergy (Verified 04/28/21 02:00) Vomiting isosorbide [From Imdur] Allergy (Verified 04/28/21 02:00) Unknown tramadol Allergy (Verified 04/28/21 02:00) Shortness of Breath Home Medications: Home Medications Medication Instructions Recorded Confirmed Last Taken Type Pantoprazole Sodium 40 mg PO BID #60 tablet. 04/16/21 04/28/21 04/26/21 21:00 Rx Acetaminophen/Diphenhydramine 2 each PO TID PRN 04/28/21 04/28/21 04/26/21 21:00 History [Tylenol Pm Ex-Strength Caplet] Apixaban [Eliquis] 5 mg PO BID 04/28/21 04/28/21 04/26/21 21:00 History AtorvaSTATin [Lipitor] 40 mg PO QHS 04/28/21 04/28/21 04/26/21 21:00 History B Complex W/Vitamin C [Allbee with 500 mg PO DAILY 04/28/21 04/28/21 04/26/21 09:00 History C] Ferrous Sulfate [Ferrous Sulfate 324 mg PO BID 04/28/21 04/28/21 04/26/21 21:00 History 324 MG] Insulin Glargine,Hum.rec.anlog 25 unit SQ HS PRN 04/28/21 04/28/21 04/26/21 21:00 History [Lantus Solostar] Novolin 70-30 Flexpen 4 units SUB-Q PRN PRN 04/28/21 04/28/21 04/25/21 02:10 History Sennosides Tab [Senokot] 8.6 mg PO DAILY 04/28/21 04/28/21 04/26/21 21:00 History Tamsulosin [Flomax] 0.4 mg PO QDAY 04/28/21 04/28/21 04/26/21 09:00 History carvediloL [Coreg] 6.25 mg PO BID 04/28/21 04/28/21 04/26/21 21:00 History lisinopriL [Zestril] 5 mg PO QDAY 04/28/21 04/28/21 04/26/21 09:00 History Active Medications: Generic Name Dose Route Start Last Admin Trade Name Freq PRN Reason Stop Dose Admin Atorvastatin Calcium 40 mg 04/28/21 22:00 04/28/21 22:47 Atorvastatin 40 Mg Tab PO Not Given QHS NATALIA Carvedilol 3.125 mg 04/28/21 22:00 04/29/21 09:51 Carvedilol 3.125 Mg Tab PO Not Given BID NATALIA Clonidine HCl 0.2 mg 04/27/21 23:45 04/28/21 00:59 Clonidine Tts 0.2 Mg/24 Hr Patch TD 0.2 mg We NATALIA Administration Dextrose 50 ml 04/27/21 22:35 Dextrose 50% In Water (25gm) 50 Ml Syringe IV Q30MIN PRN Hypoglycemia Protocol Insulin Human Lispro 0 unit 04/28/21 07:30 04/29/21 08:45 Insulin Lispro 100 Unit/Ml SUB-Q Not Given ACHS [facility] Protocol Metoprolol Tartrate 5 mg 04/27/21 23:22 04/28/21 01:10 Metoprolol Tartrate 5 Mg/5 Ml Inj IV 5 mg Q6HR PRN Administration SBP>165, DBP>95 Morphine Sulfate 2 mg 04/27/21 22:35 04/29/21 05:00 Morphine 2 Mg/1 Ml Inj IV 2 mg Q4H PRN Administration Pain, Moderate (4-6) Ondansetron HCl 4 mg 04/27/21 22:35 Ondansetron 4 Mg/2 Ml Inj IV Q8H PRN Nausea And Vomiting Pantoprazole Sodium 40 mg 04/28/21 10:00 04/29/21 09:22 Pantoprazole 40 Mg Inj IV 40 mg BID NATALIA Administration Sodium Chloride 10 ml 04/28/21 10:00 04/29/21 09:23 Sodium Chloride 0.9% 10 Ml Flush Syringe IV 10 ml BID NATALIA Administration Sodium Chloride 10 ml 04/27/21 22:35 Sodium Chloride 0.9% 10 Ml Flush Syringe IV PRN PRN LINE FLUSH Tamsulosin HCl 0.4 mg 04/29/21 10:00 04/29/21 09:51 Tamsulosin 0.4 Mg Cap PO Not Given QDAY [facility]IA
[2021-04-29] MEDS ORDERED: STERILE NICU ONLY IV SCH (12:00)
[2021-04-29] MEDS ORDERED: SODIUM BICARBONATE IV SCH (12:00)
[2021-04-29] MEDS ORDERED: WATER IV SCH (12:00)
[2021-04-29] MEDS ORDERED: SODIUM BICARBONATE 100 MEQ in WATER FOR INJECTION (PF) 1,000 ML IV SCH (12:00)
[2021-04-29] MEDS ORDERED: HYDROmorphone 1 MG/1 ML INJ IV ONE (13:15)
--- NOTE | 2021-04-29 13:22 | Progress Note ---
Assessment and Plan Acute gastrointestinal bleed Hypertensive emergency Atrial fibrillation DM II Dementia - hopefully can get endoscopy done - continue aspiration precautions - DENTAL OFFICE ASSISTANT evaluation for diet advancement - continue to wean supplemental oxygen to keep O2 sats > 90% - continue Bronchodilators (SHEREE & LABA) with pulm hygiene per RT - continue systemic steroids with slow taper - continue inhaled corticosteroids - continue to avoid nephrotoxins, renally dose all medications - continue mobility protocols to prevent pressure ulcers - PT/OT as tolerated - Wound care per RN/WCT - continue accuchecks with glycemic control per SSI for target blood glucose < 180 mg/dL - Smoking cessation strongly counseled at the bedside - home oxygen evaluation at discharge - GI & VTE prophylaxis - Flu & pneumovax per protocol - Pulmonary out patient follow up for PFTs and optimization of respiratory status - continue other care per attending / other consultants - prn analgesia per pain score ... re-evaluate in am & prn Subjective Date of service: 04/29/21 Principal diagnosis: Ac. gastrointestinal bleed; Hypertensive emergency; A-Fib; DM II Interval history: Patient is seen today for: Ac. gastrointestinal bleed; Hypertensive emergency; Atrial fibrillation; DM II; Dementia Seen and examined at bedside; 24hour events reviewed; nursing and respiratory care staff consulted; no adverse overnight events reported to me; resting in bed; GI evaluation ongoing; had declined to take golytely for colon prep earlier; No N/V/F/C; no BRBPR Objective Vital Signs - 12hr 04/29/21 04/29/21 04/29/21 01:47 02:00 03:00 Temperature Pulse Rate 77 76 Pulse Rate [ From Monitor] Respiratory 16 18 15 Rate Respiratory Rate [ Generalized] Blood Pressure 128/53 128/53 O2 Sat by Pulse 97 97 Oximetry 04/29/21 04/29/21 04/29/21 04:00 04:30 05:00 Temperature 97.5 F L Pulse Rate 71 76 77 Pulse Rate [ From Monitor] Respiratory 19 13 Rate Respiratory Rate [ Generalized] Blood Pressure 122/59 128/103 O2 Sat by Pulse 96 95 Oximetry 04/29/21 04/29/21 04/29/21 05:30 06:00 07:00 Temperature 97.6 F Pulse Rate 75 78 Pulse Rate [ From Monitor] Respiratory 16 16 9 L Rate Respiratory Rate [ Generalized] Blood Pressure 128/103 112/82 O2 Sat by Pulse 96 96 Oximetry 04/29/21 04/29/21 04/29/21 08:00 09:00 10:00 Temperature Pulse Rate 74 82 77 Pulse Rate [ 80 From Monitor] Respiratory 20 13 14 Rate Respiratory 22 Rate [ Generalized] Blood Pressure 121/56 121/56 124/51 O2 Sat by Pulse 97 97 98 Oximetry 04/29/21 04/29/21 11:00 12:00 Temperature 97.7 F Pulse Rate 72 65 Pulse Rate [ 80 From Monitor] Respiratory 13 14 Rate Respiratory Rate [ Generalized] Blood Pressure 137/61 114/87 O2 Sat by Pulse 98 98 Oximetry Constitutional: no acute distress Eyes: non-icteric ENT: oropharynx moist Neck: supple, lymphadenopathy, no JVD Effort: mildly labored Ascultation: Bilateral: diminished breath sounds, rhonchi Percussion: Bilateral: not dull Cardiovascular: regular rate and rhythm Gastrointestinal: normoactive bowel sounds, soft, non-tender, non-distended (protuberant) Integumentary: rash Extremities: pink and warm, no ischemia or petechiae, other (right BKA) Neurologic: pupils equal and round, CN II-XII normal Psychiatric: mood appropriate, affect normal CBC and BMP: 04/29/21 07:00 04/30/21 04:29 ABG, PT/INR, D-dimer: PT/INR, D-dimer PT 22.4 Sec. (12.2-14.9) H 04/28/21 06:53 INR 1.92 (0.87-1.13) H 04/28/21 06:53 Abnormal lab findings: Abnormal Labs 04/27/21 04/27/21 04/27/21 19:31 19:46 19:46 RBC 2.45 L Hgb 7.2 L Hct 21.6 L RDW 17.1 H Lymph % (Auto) [place] % (Auto) 8.4 H Lymph # (Auto) 0.8 L Seg Neutrophils % 72.4 H PT 22.3 H INR 1.91 H APTT 48.5 H Potassium 5.4 H Chloride Carbon Dioxide 21 L BUN 36 H Creatinine 2.5 H Glucose 166 H POC Glucose Calcium 7.9 L Total Protein 6.2 L Albumin 2.4 L Urine WBC (Auto) Urine Creatinine Crossmatch 04/27/21 04/28/21 04/28/21 19:46 06:53 06:53 RBC 2.93 L Hgb 8.4 L Hct 25.3 L RDW 16.3 H Lymph % (Auto) [place] % (Auto) 10.1 H Lymph # (Auto) 1.0 L Seg Neutrophils % 70.8 H PT 22.4 H INR 1.92 H APTT Potassium Chloride Carbon Dioxide BUN Creatinine Glucose POC Glucose Calcium Total Protein Albumin Urine WBC (Auto) Urine Creatinine Crossmatch See Detail 04/28/21 04/28/21 04/28/21 06:53 07:42 11:49 RBC Hgb Hct RDW Lymph % (Auto) [place] % (Auto) Lymph # (Auto) Seg Neutrophils % PT INR APTT Potassium Chloride 108.0 H Carbon Dioxide 20 L BUN 35 H Creatinine 2.6 H Glucose 164 H POC Glucose 158 H 149 H Calcium 7.2 L Total Protein Albumin Urine WBC (Auto) Urine Creatinine Crossmatch 04/28/21 04/28/21 04/28/21 12:30 12:30 16:42 RBC Hgb Hct RDW Lymph % (Auto) [place] % (Auto) Lymph # (Auto) Seg Neutrophils % PT INR APTT Potassium Chloride Carbon Dioxide BUN Creatinine Glucose POC Glucose 157 H Calcium Total Protein Albumin Urine WBC (Auto) 13.0 H Urine Creatinine 116.6 H Crossmatch 04/28/21 04/29/21 04/29/21 21:10 07:00 07:00 RBC 2.66 L Hgb 7.9 L Hct 23.3 L RDW 16.7 H Lymph % (Auto) 11.3 L [place] % (Auto) 9.4 H Lymph # (Auto) 0.7 L Seg Neutrophils % 76.0 H PT INR APTT Potassium 5.1 H Chloride 108.3 H Carbon Dioxide 18 L BUN 42 H Creatinine 3.0 H Glucose 172 H POC Glucose 144 H Calcium 8.0 L Total Protein Albumin Urine WBC (Auto) Urine Creatinine Crossmatch 04/29/21 04/29/21 07:37 11:27 RBC Hgb Hct RDW Lymph % (Auto) [place] % (Auto) Lymph # (Auto) Seg Neutrophils % PT INR APTT Potassium Chloride Carbon Dioxide BUN Creatinine Glucose POC Glucose 163 H 153 H Calcium Total Protein Albumin Urine WBC (Auto) Urine Creatinine Crossmatch Allied health notes reviewed: nursing
[2021-04-29] MEDS ORDERED: MORPHINE 2 MG/1 ML INJ IV ONE (13:30)
--- NOTE | 2021-04-29 16:19 | Progress Note ---
Assessment and Plan -- Upper GI bleed Consult placed to engine test cell technician for evaluation. Meanwhile patient has been started on proton pump inhibitor. Continue to hold anticoagulation and monitor H&H -- Acute on chronic renal failure Likely due to vasomotor nephropathy versus ATN Consult placed to nephrology for evaluation. We will monitor BUN and creatinine. Continue IV fluid -- Hypertensive urgency, malignant Patient was on Cardene drip which was later tapered off. We will monitor blood pressure closely. Resume his home medications -- Atrial fibrillation, chronic Rate currently controlled. We hold anticoagulation meanwhile in view of the GI bleed Consult cardiology and follow recommendation --Dementia, continue supportive care -- DVT prophylaxis Patient placed on sequential compression device. -- Full code status Brief history: 70-year-old male with h/o atrial fib, arthritis, diabetes, heart failure, hyper tension, chronic renal failure, Dementia, Neuropathy presented to the emergency room complaining of dark stool and generalized fatigue for few days. Patient had similar presentation during his prior admission and was recently discharged on 04/16/2021 after having an endoscopy which showed no acute bleeding. Patient has been on anticoagulation with Eliquis which was on hold during discharge. According to patient brother dose was recently increased to 5 mg twice a day few days ago and thereafter patient started having dark stools. Labs were drawn sometime yesterday patient was found to be anemic, He got a call from the [facility] and was encouraged to be taken to the hospital for possible blood transfusion. Upon arrival in the emergency room blood pressure was quite elevated with systolic of about 216 and diastolic of 119 mmHg. He was subsequently placed on nicardipine drip which was later tapered off. Work-up in the ER reveals a hemoglobin of 7.2 and hematocrit of 21.6. Potassium was slightly elevated at 5.4, also had elevated BUN and creatinine. Patient was admitted for GI bleed. Daily clinical course; 04/28/21: hold eliquis, cont to follow H/H, follow GI recommendation-plan for endoscopy tomorrow. will also consult cardiology to make recommendation for chronic anticoagulation use in the light of recurrent GI bleed. 04/29/21: Patient refused to take GoLYTELY last night. Did not have adequate prep for colonoscopy so GI canceled the procedure. Discussed with the brother at the bedside. Renal function is declining-patient placed on bicarbonate drip. We will transfer this patient to telemetry. Will start on clear liquid diet, if patient continues to have very poor p.o. intake will place on Dobbhoff tube. Continue to monitor BMP and H&H. Continue to hold Eliquis -as patient is no longer a anticoagulation candidate due to recurrent GI bleed and severe anemia per cardiology recommendation. Subjective Date of service: 04/29/21 Principal diagnosis: Ac. gastrointestinal bleed; Hypertensive emergency; A-Fib; DM II Interval history: Patient seen and examined. Medical records and medication list reviewed. No acute event overnight noted by the RN. BP stable no active bleeding overnight Discussed plan of care with RN and with patient and brother at the bedside Patient remains lethargic with very poor oral intake Objective - Exam Narrative Exam: GENERAL: well-developed elderly white male lying on bed appeared to be lethargic and stuporous. Open eyes with verbal command HEENT: Normocephalic. Atraumatic. No conjunctival congestion or icterus. Patient has moist mucous membranes. NECK: Supple. Trachea midline. CHEST/LUNGS: Clear to auscultated bilaterally, breathing nonlabored. No wheezes crackles or rhonchi. HEART/CARDIOVASCULAR: Regular in rate and rhythm. S1 and S2 positive. ABDOMEN: Abdomen is soft, nontender. Patient has normal bowel sounds. SKIN: There is no rash. Warm and dry. NEURO: No focal motor deficit. Follows verbal command. MUSCULOSKELETAL: No joint effusion or tenderness. EXTRIMITY: No edema, no cyanosis or clubbing. PSYCH: Patient is nonverbal and unable to assess. - Constitutional Vitals: Vital Signs - 12hr 04/29/21 04/29/21 04/29/21 04:30 05:00 05:30 Temperature Pulse Rate 76 77 Pulse Rate [ From Monitor] Respiratory 13 16 Rate Respiratory Rate [ Generalized] Blood Pressure 128/103 O2 Sat by Pulse 95 Oximetry 04/29/21 04/29/21 04/29/21 06:00 07:00 08:00 Temperature 97.6 F Pulse Rate 75 78 74 Pulse Rate [ 80 From Monitor] Respiratory 16 9 L 20 Rate Respiratory Rate [ Generalized] Blood Pressure 128/103 112/82 121/56 O2 Sat by Pulse 96 96 97 Oximetry 04/29/21 04/29/21 04/29/21 09:00 10:00 11:00 Temperature Pulse Rate 82 77 72 Pulse Rate [ From Monitor] Respiratory 13 14 13 Rate Respiratory 22 Rate [ Generalized] Blood Pressure 121/56 124/51 137/61 O2 Sat by Pulse 97 98 98 Oximetry 04/29/21 04/29/21 04/29/21 12:00 13:00 14:00 Temperature 97.7 F Pulse Rate 65 78 79 Pulse Rate [ 80 From Monitor] Respiratory 14 16 14 Rate Respiratory Rate [ Generalized] Blood Pressure 114/87 107/52 149/56 O2 Sat by Pulse 98 96 94 Oximetry 04/29/21 04/29/21 15:00 16:00 Temperature Pulse Rate 82 83 Pulse Rate [ From Monitor] Respiratory 17 19 Rate Respiratory Rate [ Generalized] Blood Pressure 142/53 133/70 O2 Sat by Pulse 97 98 Oximetry - Labs CBC & Chem 7: 04/29/21 07:00 04/30/21 04:29 Labs: Abnormal lab results 04/28/21 04/28/21 04/29/21 Range/Units 16:42 21:10 07:00 RBC (3.65-5.03) M/mm3 Hgb (11.8-15.2) gm/dl Hct (35.5-45.6) % RDW (13.2-15.2) % Lymph % (Auto) (13.4-35.0) % [place] % (Auto) (0.0-7.3) % Lymph # (Auto) (1.2-5.4) K/mm3 Seg Neutrophils % (40.0-70.0) % Potassium 5.1 H (3.6-5.0) mmol/L Chloride 108.3 H (98-107) mmol/L Carbon Dioxide 18 L (22-30) mmol/L BUN 42 H (9-20) mg/dL Creatinine 3.0 H (0.8-1.3) mg/dL Glucose 172 H (75-100) mg/dL POC Glucose 157 H 144 H (70-105) mg/dL Calcium 8.0 L (8.4-10.2) mg/dL 04/29/21 04/29/21 04/29/21 Range/Units 07:00 07:37 11:27 RBC 2.66 L (3.65-5.03) M/mm3 Hgb 7.9 L (11.8-15.2) gm/dl Hct 23.3 L (35.5-45.6) % RDW 16.7 H (13.2-15.2) % Lymph % (Auto) 11.3 L (13.4-35.0) % [place] % (Auto) 9.4 H (0.0-7.3) % Lymph # (Auto) 0.7 L (1.2-5.4) K/mm3 Seg Neutrophils % 76.0 H (40.0-70.0) % Potassium (3.6-5.0) mmol/L Chloride (98-107) mmol/L Carbon Dioxide (22-30) mmol/L BUN (9-20) mg/dL Creatinine (0.8-1.3) mg/dL Glucose (75-100) mg/dL POC Glucose 163 H 153 H (70-105) mg/dL Calcium (8.4-10.2) mg/dL
--- NOTE | 2021-04-29 17:29 | XRay Report ---
ABDOMEN 1 VIEW(S) INDICATION: pain COMPARISON: None available. FINDINGS: Bowel gas pattern: Within normal limits. No dilated loops of large or small bowel. Free air: None. Calcified gallstones: None seen. Calcified urinary tract calculi: None seen. Additional Findings: None. Skeletal structures: No acute abnormality. IMPRESSION: 1. No acute findings. Signer Name: Tony Alcazar MD Signed: 04/29/2021 5:24 PM Workstation Name: [id number]
[2021-04-29] MEDS: SODIUM BICARBONATE 150 MEQ in DEXTROSE 5% IN WATER 1,000 ML IV SCH (17:43)
[2021-04-29] MEDS ORDERED: LORazepam 2 MG/ML VIAL IV ONE (22:38)
[2021-04-29] MEDS ORDERED: HALOPERIDOL LACTATE 5 MG/1 ML INJ IM ONE (22:57)
[2021-04-30 06:01] LABS: Calcium 7.7 mg/dL (8.4-10.2)
--- NOTE | 2021-04-30 10:11 | Progress Note ---
Assessment and Plan 1. Acute kidney injury: Likely vasomotor DAVID superimposed on CKD. ATN likely. Renal US negative for hydro. Continue IV fluids. Monitor renal function. Creatinine level increasing. Renal prognosis is guarded. Avoid nephrotoxic agents. Meds dosage based on GFR. 2. FEN: Hyperkalemia, improved, monitor. Metabolic acidosis, continue bicarb drip, monitor. Monitor lytes and volume status. 3. GI bleed: Admitted with melena. Seen by GI. 4. Encephalopathy, POA: Likely chronic. ?baseline. 5. Hypertensive urgency: Patient was on Cardene drip which was later weaned off. Monitor blood pressure closely. 6. Atrial fibrillation: Rate currently controlled. Anticoagulation in view of the GI bleed. 7. DM type 2. Subjective: Patient was seen and examined at the bedside. Examination: General appearance: well-developed, appears stated age, not in distress HEENT: atraumatic, KEN Neck: trachea midline Respiratory: ctab Heart: S1S2, no murmur Abdomen: soft, bowel sounds heard, NT Integumentary: L foot dressing, chronic changes noted Neurologic: appears alert, non-verbal, not following any command Ext: no edema, R BKA Subjective Date of service: 04/30/21 Principal diagnosis: gi bleed Objective - Vital Signs Vital signs: Vital Signs - 12hr 04/29/21 04/30/21 04/30/21 23:50 00:00 04:00 Temperature 99.2 F Pulse Rate 74 83 74 Pulse Rate [ 72 From Monitor] Respiratory 16 16 Rate Blood Pressure 150/80 [Left] O2 Sat by Pulse 94 92 Oximetry - Lab 04/29/21 07:00 04/30/21 04:29 Most recent lab results Calcium 7.7 mg/dL (8.4-10.2) L 04/30/21 04:29 Urine Creatinine 116.6 mg/dL (0.1-20.0) H 04/28/21 12:30 Urine Sodium 35 mmol/L 04/28/21 12:30 Medications & Allergies - Medications Allergies/Adverse Reactions: Allergies hydralazine Allergy (Verified 04/28/21 02:00) Vomiting isosorbide [From Imdur] Allergy (Verified 04/28/21 02:00) Unknown tramadol Allergy (Verified 04/28/21 02:00) Shortness of Breath Home Medications: Home Medications Medication Instructions Recorded Confirmed Last Taken Type Pantoprazole Sodium 40 mg PO BID #60 tablet. 04/16/21 04/28/21 04/26/21 21:00 Rx Acetaminophen/Diphenhydramine 2 each PO TID PRN 04/28/21 04/28/21 04/26/21 21:00 History [Tylenol Pm Ex-Strength Caplet] Apixaban [Eliquis] 5 mg PO BID 04/28/21 04/28/21 04/26/21 21:00 History AtorvaSTATin [Lipitor] 40 mg PO QHS 04/28/21 04/28/21 04/26/21 21:00 History B Complex W/Vitamin C [Allbee with 500 mg PO DAILY 04/28/21 04/28/21 04/26/21 09:00 History C] Ferrous Sulfate [Ferrous Sulfate 324 mg PO BID 04/28/21 04/28/21 04/26/21 21:00 History 324 MG] Insulin Glargine,Hum.rec.anlog 25 unit SQ HS PRN 04/28/21 04/28/21 04/26/21 21:00 History [Lantus Solostar] Novolin 70-30 Flexpen 4 units SUB-Q PRN PRN 04/28/21 04/28/21 04/25/21 02:10 History Sennosides Tab [Senokot] 8.6 mg PO DAILY 04/28/21 04/28/21 04/26/21 21:00 History Tamsulosin [Flomax] 0.4 mg PO QDAY 04/28/21 04/28/21 04/26/21 09:00 History carvediloL [Coreg] 6.25 mg PO BID 04/28/21 04/28/21 04/26/21 21:00 History lisinopriL [Zestril] 5 mg PO QDAY 04/28/21 04/28/21 04/26/21 09:00 History Active Medications: Generic Name Dose Route Start Last Admin Trade Name Freq PRN Reason Stop Dose Admin Atorvastatin Calcium 40 mg 04/28/21 22:00 04/29/21 22:07 Atorvastatin 40 Mg Tab PO 40 mg QHS NATALIA Administration Carvedilol 3.125 mg 04/28/21 22:00 04/29/21 22:07 Carvedilol 3.125 Mg Tab PO 3.125 mg BID NATALIA Administration Clonidine HCl 0.2 mg 04/27/21 23:45 04/28/21 00:59 Clonidine Tts 0.2 Mg/24 Hr Patch TD 0.2 mg We NATALIA Administration Dextrose 50 ml 04/27/21 22:35 Dextrose 50% In Water (25gm) 50 Ml Syringe IV Q30MIN PRN Hypoglycemia Protocol Sodium Bicarbonate 150 meq/ 1,150 mls @ 75 mls/hr 04/29/21 17:00 04/29/21 17:43 Dextrose IV 75 mls/hr DIRECT NATALIA Administration Insulin Human Lispro 0 unit 04/28/21 07:30 04/29/21 23:57 Insulin Lispro 100 Unit/Ml SUB-Q 2 unit ACHS NATALIA Administration Protocol Metoprolol Tartrate 5 mg 04/27/21 23:22 04/28/21 01:10 Metoprolol Tartrate 5 Mg/5 Ml Inj IV 5 mg Q6HR PRN Administration SBP>165, DBP>95 Morphine Sulfate 2 mg 04/29/21 12:59 04/29/21 20:48 Morphine 2 Mg/1 Ml Inj IV 2 mg Q3H PRN Administration Pain, Moderate (4-6) Ondansetron HCl 4 mg 04/27/21 22:35 Ondansetron 4 Mg/2 Ml Inj IV Q8H PRN Nausea And Vomiting Pantoprazole Sodium 40 mg 04/28/21 10:00 04/29/21 22:07 Pantoprazole 40 Mg Inj IV 40 mg BID NATALIA Administration Sodium Chloride 10 ml 04/28/21 10:00 04/29/21 22:09 Sodium Chloride 0.9% 10 Ml Flush Syringe IV 10 ml BID NATALIA Administration Sodium Chloride 10 ml 04/27/21 22:35 Sodium Chloride 0.9% 10 Ml Flush Syringe IV PRN PRN LINE FLUSH Tamsulosin HCl 0.4 mg 04/29/21 10:00 04/29/21 09:51 Tamsulosin 0.4 Mg Cap PO Not Given QDAY NATALIA
[2021-04-30] MEDS: carvediloL 3.125 MG TAB PO SCH ×2 (10:33→22:13)
[2021-04-30] MEDS: INSULIN LISPRO 100 UNIT/ML SUB-Q SCH ×4 (10:33→22:12)
[2021-04-30] MEDS: PANTOPRAZOLE 40 MG INJ IV SCH ×2 (10:33→22:13)
[2021-04-30] MEDS: TAMSULOSIN 0.4 MG CAP PO SCH (10:33)
[2021-04-30] MEDS ORDERED: SODIUM BICARBONATE 325 MG TAB FEEDTUBE PRN (13:04)
[2021-04-30] MEDS ORDERED: LIPASE 10,500/PROTEASE 25,000/AMYLASE 43,750 (UNITS) DR CAP FEEDTUBE PRN (13:04)
[2021-04-30] MEDS ORDERED: SIMPLE SYRUP 15 ML FEEDTUBE PRN ×2 (13:04)
--- NOTE | 2021-04-30 14:11 | Progress Note ---
Assessment and Plan -- Upper GI bleed Consult placed to ostrich farm worker for evaluation. Meanwhile patient has been started on proton pump inhibitor. Continue to hold anticoagulation and monitor H&H -- Acute on chronic renal failure 2.5>2.6>3.0>3.4 Likely due to vasomotor nephropathy versus ATN Consult placed to nephrology for evaluation. We will monitor BUN and creatinine. Continue IV fluid -- Hypertensive urgency, malignant Patient was on Cardene drip which was later tapered off. We will monitor blood pressure closely. Resume his home medications --Hyperkalemia, continue bicarb drip for now, follow BMP -- Atrial fibrillation, chronic Rate currently controlled. We hold anticoagulation meanwhile in view of the GI bleed Consult cardiology and follow recommendation --Dementia, continue supportive care -- DVT prophylaxis Patient placed on sequential compression device. -- Full code status Brief history: 70-year-old male with h/o atrial fib, arthritis, diabetes, heart failure, hypertension, chronic renal failure, Dementia, Neuropathy presented to the emergency room complaining of dark stool and generalized fatigue for few days. Patient had similar presentation during his prior admission and was recently discharged on 04/16/2021 after having an endoscopy which showed no acute bleeding. Patient has been on anticoagulation with Eliquis which was on hold during discharge. According to patient brother dose was recently increased to 5 mg twice a day few days ago and thereafter patient started having dark stools. Labs were drawn sometime yesterday patient was found to be anemic, He got a call from the [facility] and was encouraged to be taken to the hospital for possible blood transfusion. Upon arrival in the emergency room blood pressure was quite elevated with systolic of about 216 and diastolic of 119 mmHg. He was subsequently placed on nicardipine drip which was later tapered off. Work-up in the ER reveals a hemoglobin of 7.2 and hematocrit of 21.6. Potassium was slightly elevated at 5.4, also had elevated BUN and creatinine. Patient was admitted for GI bleed. Daily clinical course; 04/28/21: hold eliquis, cont to follow H/H, follow GI recommendation-plan for endoscopy tomorrow. will also consult cardiology to make recommendation for chronic anticoagulation use in the light of recurrent GI bleed. 04/29/21: Patient refused to take GoLYTELY last night. Did not have adequate prep for colonoscopy so GI canceled the procedure. Discussed with the brother at the bedside. Renal function is declining-patient placed on bicarbonate drip. We will transfer this patient to telemetry. Will start on clear liquid diet, if patient continues to have very poor p.o. intake will place on Dobbhoff tube. Continue to monitor BMP and H&H. Continue to hold Eliquis -as patient is no longer a anticoagulation candidate due to recurrent GI bleed and severe anemia p er cardiology recommendation. 04/30/12: Creatinine 3.4 today, potassium level improved. Patient remains lethargic with poor oral intake. Will place Dobbhoff tube with tube feeding. Continue D5 bicarbonate drip. Nephrology following, continue to monitor BMP. Subjective Date of service: 04/30/21 Principal diagnosis: Ac. gastrointestinal bleed; Hypertensive emergency; A-Fib; DM II Interval history: Patient seen and examined. Medical records and medication list reviewed. No acute event overnight noted by the RN. BP stable no active bleeding overnight Patient remains lethargic with very poor oral intake Objective - Exam Narrative Exam: GENERAL: well-developed elderly white male lying on bed appeared to be lethargic and stuporous. Open eyes with verbal command HEENT: Normocephalic. Atraumatic. No conjunctival congestion or icterus. Patient has moist mucous membranes. NECK: Supple. Trachea midline. CHEST/LUNGS: Clear to auscultated bilaterally, breathing nonlabored. No wheezes crackles or rhonchi. HEART/CARDIOVASCULAR: Regular in rate and rhythm. S1 and S2 positive. ABDOMEN: Abdomen is soft, nontender. Patient has normal bowel sounds. SKIN: There is no rash. Warm and dry. NEURO: No focal motor deficit. Follows verbal command. MUSCULOSKELETAL: No joint effusion or tenderness. EXTRIMITY: No edema, no cyanosis or clubbing. PSYCH: Patient is nonverbal and unable to assess. - Constitutional Vitals: Vital Signs - 12hr 04/30/21 04:00 Pulse Rate 74 - Labs CBC & Chem 7: 04/29/21 07:00 04/30/21 04:29 Labs: Abnormal lab results 04/29/21 04/29/21 04/30/21 Range/Units 16:37 20:19 04:29 Carbon Dioxide 21 L (22-30) mmol/L BUN 42 H (9-20) mg/dL Creatinine 3.4 H (0.8-1.3) mg/dL Glucose 165 H (75-100) mg/dL POC Glucose 132 H 162 H (70-105) mg/dL Calcium 7.7 L (8.4-10.2) mg/dL 04/30/21 Range/Units 07:51 Carbon Dioxide (22-30) mmol/L BUN (9-20) mg/dL Creatinine (0.8-1.3) mg/dL Glucose (75-100) mg/dL POC Glucose 153 H (70-105) mg/dL Calcium (8.4-10.2) mg/dL
--- NOTE | 2021-04-30 14:18 | Progress Note ---
Assessment and Plan Acute gastrointestinal bleed Hypertensive emergency Atrial fibrillation DM II Dementia - NGT +/- golytely - hopefully can get endoscopy prep done - continue aspiration precautions - WEB COORDINATOR evaluation for diet advancement - continue to wean supplemental oxygen to keep O2 sats > 90% - continue Bronchodilators (SHEREE & LABA) with pulm hygiene per RT - continue systemic steroids with slow taper - continue inhaled corticosteroids - continue to avoid nephrotoxins, renally dose all medications - continue mobility protocols to prevent pressure ulcers - PT/OT as tolerated - Wound care per RN/WCT - continue accuchecks with glycemic control per SSI for target blood glucose < 180 mg/dL - Smoking cessation strongly counseled at the bedside - home oxygen evaluation at discharge - GI & VTE prophylaxis - Flu & pneumovax per protocol - Pulmonary out patient follow up for PFTs and optimization of respiratory status - continue other care per attending / other consultants - prn analgesia per pain score ... re-evaluate in am & prn Subjective Date of service: 04/30/21 Principal diagnosis: Ac. gastrointestinal bleed; Hypertensive emergency; A-Fib; DM II Interval history: Patient is seen today for: Ac. gastrointestinal bleed; Hypertensive emergency; Atrial fibrillation; DM II; Dementia Seen and examined at bedside; 24hour events reviewed; nursing and respiratory care staff consulted; no adverse overnight events reported to me; resting in bed; remains anemic; remains on supplemental oxygen; remains with chronic encephalopathy and poor insight Objective Vital Signs - 12hr 04/30/21 04:00 Pulse Rate 74 Constitutional: no acute distress Eyes: non-icteric ENT: oropharynx moist Neck: supple, lymphadenopathy, no JVD Effort: mildly labored Ascultation: Bilateral: diminished breath sounds, rhonchi Percussion: Bilateral: not dull Cardiovascular: regular rate and rhythm Gastrointestinal: normoactive bowel sounds, soft, non-tender, non-distended (protuberant) Integumentary: rash Extremities: pink and warm, no ischemia or petechiae, other (right BKA) Neurologic: pupils equal and round, CN II-XII normal, other (chronic encephalopathy) Psychiatric: anxious CBC and BMP: 05/01/21 04:31 05/01/21 04:31 ABG, PT/INR, D-dimer: PT/INR, D-dimer PT 22.4 Sec. (12.2-14.9) H 04/28/21 06:53 INR 1.92 (0.87-1.13) H 04/28/21 06:53 Abnormal lab findings: Abnormal Labs 04/27/21 04/27/21 04/27/21 19:31 19:46 19:46 RBC 2.45 L Hgb 7.2 L Hct 21.6 L RDW 17.1 H Lymph % (Auto) Perry % (Auto) 8.4 H Lymph # (Auto) 0.8 L Seg Neutrophils % 72.4 H PT 22.3 H INR 1.91 H APTT 48.5 H Potassium 5.4 H Chloride Carbon Dioxide 21 L BUN 36 H Creatinine 2.5 H Glucose 166 H POC Glucose Calcium 7.9 L Total Protein 6.2 L Albumin 2.4 L Urine WBC (Auto) Urine Creatinine Crossmatch 04/27/21 04/28/21 04/28/21 19:46 06:53 06:53 RBC 2.93 L Hgb 8.4 L Hct 25.3 L RDW 16.3 H Lymph % (Auto) Perry % (Auto) 10.1 H Lymph # (Auto) 1.0 L Seg Neutrophils % 70.8 H PT 22.4 H INR 1.92 H APTT Potassium Chloride Carbon Dioxide BUN Creatinine Glucose POC Glucose Calcium Total Protein Albumin Urine WBC (Auto) Urine Creatinine Crossmatch See Detail 04/28/21 04/28/21 04/28/21 06:53 07:42 11:49 RBC Hgb Hct RDW Lymph % (Auto) Perry % (Auto) Lymph # (Auto) Seg Neutrophils % PT INR APTT Potassium Chloride 108.0 H Carbon Dioxide 20 L BUN 35 H Creatinine 2.6 H Glucose 164 H POC Glucose 158 H 149 H Calcium 7.2 L Total Protein Albumin Urine WBC (Auto) Urine Creatinine Crossmatch 04/28/21 04/28/21 04/28/21 12:30 12:30 16:42 RBC Hgb Hct RDW Lymph % (Auto) Perry % (Auto) Lymph # (Auto) Seg Neutrophils % PT INR APTT Potassium Chloride Carbon Dioxide BUN Creatinine Glucose POC Glucose 157 H Calcium Total Protein Albumin Urine WBC (Auto) 13.0 H Urine Creatinine 116.6 H Crossmatch 04/28/21 04/29/21 04/29/21 21:10 07:00 07:00 RBC 2.66 L Hgb 7.9 L Hct 23.3 L RDW 16.7 H Lymph % (Auto) 11.3 L Perry % (Auto) 9.4 H Lymph # (Auto) 0.7 L Seg Neutrophils % 76.0 H PT INR APTT Potassium 5.1 H Chloride 108.3 H Carbon Dioxide 18 L BUN 42 H Creatinine 3.0 H Glucose 172 H POC Glucose 144 H Calcium 8.0 L Total Protein Albumin Urine WBC (Auto) Urine Creatinine Crossmatch 04/29/21 04/29/21 04/29/21 07:37 11:27 16:37 RBC Hgb Hct RDW Lymph % (Auto) Perry % (Auto) Lymph # (Auto) Seg Neutrophils % PT INR APTT Potassium Chloride Carbon Dioxide BUN Creatinine Glucose POC Glucose 163 H 153 H 132 H Calcium Total Protein Albumin Urine WBC (Auto) Urine Creatinine Crossmatch 04/29/21 04/30/21 04/30/21 20:19 04:29 07:51 RBC Hgb Hct RDW Lymph % (Auto) Perry % (Auto) Lymph # (Auto) Seg Neutrophils % PT INR APTT Potassium Chloride Carbon Dioxide 21 L BUN 42 H Creatinine 3.4 H Glucose 165 H POC Glucose 162 H 153 H Calcium 7.7 L Total Protein Albumin Urine WBC (Auto) Urine Creatinine Crossmatch Allied health notes reviewed: nursing
--- NOTE | 2021-04-30 15:39 | Cat Scan Report ---
CT head/brain wo con INDICATION / CLINICAL INFORMATION: 70 years Male; AMS. TECHNIQUE: Routine CT head without contrast. All CT scans at this location are performed using CT dos e reduction for ALARA by means of automated exposure control. COMPARISON: None. FINDINGS: BRAIN / INTRACRANIAL CONTENTS: There is moderate cerebral white matter disease most consistent with m icrovascular angiopathy. There is advanced cerebral atrophy with associated prominence of the ventric ular system. The motion degrades the image quality. However, there is no clear CT evidence of acute i ntracranial hemorrhage or significant mass effect. ORBITS: No significant abnormality of visualized orbits. SINUSES / MASTOIDS: No significant abnormality in the visualized paranasal sinuses or mastoid air louis ls. CRANIOCERVICAL JUNCTION: No significant abnormality. ADDITIONAL FINDINGS: There is presence of a nasogastric tube with milder scattered opacification with in the right mastoid air cells. IMPRESSION: 1. The study is limited by motion. However, there is moderate microvascular angiopathy and advanced c erebral atrophy without CT evidence of acute intracranial hemorrhage. Signer Name: Chidi Casas MD Signed: 04/30/2021 3:34 PM Workstation Name: [id number]
[2021-04-30] MEDS ORDERED: HALOPERIDOL LACTATE 5 MG/1 ML INJ IM PRN (20:59)
[2021-04-30] MEDS: LORazepam 2 MG/ML VIAL IV PRN (21:09)
[2021-04-30] MEDS: SODIUM BICARBONATE 150 MEQ in DEXTROSE 5% IN WATER 1,000 ML IV SCH (22:14)
[2021-05-01 06:07] LABS: Basophils % (Auto) 0.5 % (0.0-1.8); Eosinophils # (Auto) 0.3 K/mm3 (0.0-0.4); Eosinophils % (Auto) 4.4 % (0.0-4.3); Hematocrit 20.3 % (35.5-45.6); Lymphocytes # (Auto) 0.7 K/mm3 (1.2-5.4); Lymphocytes % (Auto) 10.6 % (13.4-35.0); Mean Corpuscular HGB Conc 35 % (32-34); Mean Corpuscular Volume 87 fl (84-94); Monocytes # (Auto) 0.7 K/mm3 (0.0-0.8); Monocytes % (Auto) 10.7 % (0.0-7.3); Platelet Count 148 K/mm3 (140-440); Red Blood Count 2.32 M/mm3 (3.65-5.03); Red Cell Distribution Width 16.9 % (13.2-15.2)
[2021-05-01 06:38] LABS: Calcium 7.5 mg/dL (8.4-10.2)
[2021-05-01] MEDS: TAMSULOSIN 0.4 MG CAP PO SCH (10:28)
[2021-05-01] MEDS: carvediloL 3.125 MG TAB PO SCH ×2 (10:28→21:01)
[2021-05-01] MEDS: PANTOPRAZOLE 40 MG INJ IV SCH ×2 (10:28→21:01)
[2021-05-01] MEDS: INSULIN LISPRO 100 UNIT/ML SUB-Q SCH ×3 (10:29→17:36)
--- NOTE | 2021-05-01 12:02 | Progress Note ---
Assessment and Plan Atrial fibrillation, persists Eliquis discontinued due to severe anemia and GI bleed Records reports he receives his usual care at the [facility]. Systolic murmur Anemia s/p transfusion of PRBCs GI bleed Acue kidney injury PAD s/p right BKA Hypertension Underlying dementia Diabetes Recommendations: We will follow up on echo for LVEF assessment Continue beta blockers for rate control of atrial fibrillation. Patient is considered no longer a candidate for AC due to severe anemia and GI bleed. Subjective Date of service: 05/01/21 Principal diagnosis: gi bleed Interval history: No significant events overnight Objective Vital Signs Temp Pulse Pulse Resp BP Pulse Ox 05/01/21 03:37 97.6 F 19 120/63 05/01/21 02:00 93 H 05/01/21 00:18 98.6 F 20 124/57 04/30/21 22:13 97 H 157/79 04/30/21 22:00 97 H 98 04/30/21 19:13 97.5 F L 97 H 19 157/79 87 04/30/21 14:00 82 82 - Physical Examination Narrative exam: Patient somnolent. Currently on NG tube HEENT: Positive: PERRL, Normocephaly Neck: Positive: trachea midline Cardiac: Positive: irregularly irregular Lungs: Positive: clear to auscultation Neuro: Positive: Other (Patient somnolent) Abdomen: Positive: Unremarkable - Labs and Meds CBC 05/01/21 Range/Units 04:31 WBC 6.8 (4.5-11.0) K/mm3 RBC 2.32 L (3.65-5.03) M/mm3 Hgb 7.0 L (11.8-15.2) gm/dl Hct 20.3 L (35.5-45.6) % Plt Count 148 (140-440) K/mm3 Lymph # (Auto) 0.7 L (1.2-5.4) K/mm3 Nicholas # (Auto) 0.7 (0.0-0.8) K/mm3 Eos # (Auto) 0.3 (0.0-0.4) K/mm3 Baso # (Auto) 0.0 (0.0-0.1) K/mm3 Comprehensive Metabolic Panel 05/01/21 Range/Units 04:31 Sodium 142 (137-145) mmol/L Potassium 4.3 (3.6-5.0) mmol/L Chloride 103.9 (98-107) mmol/L Carbon Dioxide 26 (22-30) mmol/L BUN 43 H (9-20) mg/dL Creatinine 3.7 H (0.8-1.3) mg/dL Glucose 232 H (75-100) mg/dL Calcium 7.5 L (8.4-10.2) mg/dL - Allied health notes Allied health notes reviewed: nursing
--- NOTE | 2021-05-01 12:18 | Progress Note ---
Assessment and Plan 1. Acute kidney injury: Likely vasomotor DAVID superimposed on CKD. ATN likely. Renal US negative for hydro. Continue IV fluids. Monitor renal function. Creatinine level continue to increase. Renal prognosis is guarded. Avoid nephrotoxic agents. Meds dosage based on GFR. 2. FEN: Hyperkalemia, improved, monitor. Metabolic acidosis, on bicarb drip, monitor. Monitor lytes and volume status. 3. GI bleed: Admitted with melena. Seen by GI. 4. Encephalopathy, POA: Likely chronic. ?baseline. 5. Hypertensive urgency: Patient was on Cardene drip which was later weaned off. Monitor blood pressure closely. 6. Atrial fibrillation: Rate currently controlled. Anticoagulation in view of the GI bleed. 7. DM type 2. Subjective: Patient was seen and examined at the bedside. Examination: General appearance: well-developed, appears stated age, not in distress HEENT: atraumatic, KEN Neck: trachea midline Respiratory: ctab Heart: S1S2, no murmur Abdomen: soft, bowel sounds heard, NT Integumentary: L foot dressing, chronic changes noted Neurologic: lethargic, non-verbal, not following any command Ext: no edema, R BKA Subjective Date of service: 05/01/21 Principal diagnosis: gi bleed Objective - Vital Signs Vital signs: Vital Signs - 12hr 05/01/21 05/01/21 05/01/21 00:18 02:00 03:37 Temperature 98.6 F 97.6 F Pulse Rate 93 H Respiratory 20 19 Rate Blood Pressure 124/57 120/63 - Lab 05/03/21 05:26 05/03/21 05:26 Most recent lab results Calcium 7.5 mg/dL (8.4-10.2) L 05/01/21 04:31 Urine Creatinine 116.6 mg/dL (0.1-20.0) H 04/28/21 12:30 Urine Sodium 35 mmol/L 04/28/21 12:30 Medications & Allergies - Medications Allergies/Adverse Reactions: Allergies hydralazine Allergy (Verified 04/28/21 02:00) Vomiting isosorbide [From Imdur] Allergy (Verified 04/28/21 02:00) Unknown tramadol Allergy (Verified 04/28/21 02:00) Shortness of Breath Home Medications: Home Medications Medication Instructions Recorded Confirmed Last Taken Type Pantoprazole Sodium 40 mg PO BID #60 tablet. 04/16/21 04/28/21 04/26/21 21:00 Rx Acetaminophen/Diphenhydramine 2 each PO TID PRN 04/28/21 04/28/21 04/26/21 21:00 History [Tylenol Pm Ex-Strength Caplet] Apixaban [Eliquis] 5 mg PO BID 04/28/21 04/28/21 04/26/21 21:00 History AtorvaSTATin [Lipitor] 40 mg PO QHS 04/28/21 04/28/21 04/26/21 21:00 History B Complex W/Vitamin C [Allbee with 500 mg PO DAILY 04/28/21 04/28/21 04/26/21 09:00 History C] Ferrous Sulfate [Ferrous Sulfate 324 mg PO BID 04/28/21 04/28/21 04/26/21 21:00 History 324 MG] Insulin Glargine,Hum.rec.anlog 25 unit SQ HS PRN 04/28/21 04/28/21 04/26/21 21:00 History [Lantus Solostar] Novolin 70-30 Flexpen 4 units SUB-Q PRN PRN 04/28/21 04/28/21 04/25/21 02:10 History Sennosides Tab [Senokot] 8.6 mg PO DAILY 04/28/21 04/28/21 04/26/21 21:00 History Tamsulosin [Flomax] 0.4 mg PO QDAY 04/28/21 04/28/21 04/26/21 09:00 History carvediloL [Coreg] 6.25 mg PO BID 04/28/21 04/28/21 04/26/21 21:00 History lisinopriL [Zestril] 5 mg PO QDAY 04/28/21 04/28/21 04/26/21 09:00 History Active Medications: Generic Name Dose Route Start Last Admin Trade Name Freq PRN Reason Stop Dose Admin Lipase/Protease/Amylase 1 each 04/30/21 13:04 Lipase 10,500/Protease 25,000/Amylase 43,750 (Units) Dr Monreal FEEDTUBE PRN PRN For Clogged Feeding Tube Atorvastatin Calcium 40 mg 04/28/21 22:00 04/30/21 22:13 Atorvastatin 40 Mg Tab PO 40 mg QHS NATALIA Administration Carvedilol 3.125 mg 04/28/21 22:00 05/01/21 10:28 Carvedilol 3.125 Mg Tab PO 3.125 mg BID NATALIA Administration Clonidine HCl 0.2 mg 04/27/21 23:45 04/28/21 00:59 Clonidine Tts 0.2 Mg/24 Hr Patch TD 0.2 mg We NATALIA Administration Dextrose 50 ml 04/27/21 22:35 Dextrose 50% In Water (25gm) 50 Ml Syringe IV Q30MIN PRN Hypoglycemia Protocol Haloperidol Lactate 2 mg 04/30/21 20:59 04/30/21 21:09 Haloperidol Lactate 5 Mg/1 Ml Inj IM 2 mg Q12H PRN Administration Agitation Sodium Bicarbonate 150 meq/ 1,150 mls @ 75 mls/hr 04/29/21 17:00 04/30/21 22:14 Dextrose IV 75 mls/hr DIRECT NATALIA Administration Insulin Human Lispro 0 unit 04/28/21 07:30 05/01/21 10:29 Insulin Lispro 100 Unit/Ml SUB-Q 3 unit ACHS NATALIA Administration Protocol Lorazepam 2 mg 04/30/21 20:58 04/30/21 21:09 Lorazepam 2 Mg/Ml Vial IV 2 mg Q12H PRN Administration Agitation Metoprolol Tartrate 5 mg 04/27/21 23:22 04/28/21 01:10 Metoprolol Tartrate 5 Mg/5 Ml Inj IV 5 mg Q6HR PRN Administration SBP>165, DBP>95 Morphine Sulfate 2 mg 04/29/21 12:59 04/29/21 20:48 Morphine 2 Mg/1 Ml Inj IV 2 mg Q3H PRN Administration Pain, Moderate (4-6) Ondansetron HCl 4 mg 04/27/21 22:35 Ondansetron 4 Mg/2 Ml Inj IV Q8H PRN Nausea And Vomiting Pantoprazole Sodium 40 mg 04/28/21 10:00 05/01/21 10:28 Pantoprazole 40 Mg Inj IV 40 mg BID NATALIA Administration Simple Syrup 15 ml 04/30/21 13:04 Simple Syrup 15 Ml FEEDTUBE PRN PRN Hypoglycemia Simple Syrup 30 ml 04/30/21 13:04 Simple Syrup 15 Ml FEEDTUBE PRN PRN Hypoglycemia Sodium Bicarbonate 325 mg 04/30/21 13:04 Sodium Bicarbonate 325 Mg Tab FEEDTUBE PRN PRN For Clogged Feeding Tube Sodium Chloride 10 ml 04/28/21 10:00 05/01/21 10:28 Sodium Chloride 0.9% 10 Ml Flush Syringe IV 10 ml BID NATALIA Administration Sodium Chloride 10 ml 04/27/21 22:35 Sodium Chloride 0.9% 10 Ml Flush Syringe IV PRN PRN LINE FLUSH Tamsulosin HCl 0.4 mg 04/29/21 10:00 05/01/21 10:28 Tamsulosin 0.4 Mg Cap PO 0.4 mg QDAY NATALIA Administration
[2021-05-01] MEDS ORDERED: SODIUM CHLORIDE 0.9% 500 ML 500 ML IV ONE (14:10)
--- NOTE | 2021-05-01 15:26 | Progress Note ---
Assessment and Plan Acute gastrointestinal bleed Hypertensive emergency Atrial fibrillation DM II Dementia - hopefully can get endoscopy done - continue aspiration precautions - MULE SPINNER evaluation for diet advancement - continue to wean supplemental oxygen to keep O2 sats > 90% - continue Bronchodilators (SHEREE & LABA) with pulm hygiene per RT - continue systemic steroids with slow taper - continue inhaled corticosteroids - continue to avoid nephrotoxins, renally dose all medications - continue mobility protocols to prevent pressure ulcers - PT/OT as tolerated - Wound care per RN/WCT - continue accuchecks with glycemic control per SSI for target blood glucose < 180 mg/dL - Smoking cessation strongly counseled at the bedside - home oxygen evaluation at discharge - GI & VTE prophylaxis - Flu & pneumovax per protocol - Pulmonary out patient follow up for PFTs and optimization of respiratory status - continue other care per attending / other consultants - prn analgesia per pain score ... re-evaluate in am & prn Subjective Date of service: 05/01/21 Principal diagnosis: gi bleed Interval history: Patient is seen today for: Ac. gastrointestinal bleed; Hypertensive emergency; Atrial fibrillation; DM II; Dementia Seen and examined at bedside; 24hour events reviewed; nursing and respiratory care staff consulted; no adverse overnight events reported to me; resting in bed; Objective Vital Signs - 12hr 05/01/21 05/01/21 05/01/21 03:37 09:01 11:39 Temperature 97.6 F 98.2 F 97.9 F Pulse Rate 98 H 103 H Pulse Rate [ Apical] Respiratory 19 20 20 Rate Blood Pressure 120/63 145/65 153/94 O2 Sat by Pulse 91 91 Oximetry 05/01/21 14:00 Temperature Pulse Rate 89 Pulse Rate [ 89 Apical] Respiratory Rate Blood Pressure O2 Sat by Pulse Oximetry Constitutional: no acute distress Eyes: non-icteric ENT: oropharynx moist Neck: supple, lymphadenopathy, no JVD Effort: mildly labored Ascultation: Bilateral: diminished breath sounds, rhonchi Percussion: Bilateral: not dull Cardiovascular: regular rate and rhythm Gastrointestinal: normoactive bowel sounds, soft, non-tender, non-distended (protuberant) Integumentary: rash Extremities: pink and warm, no ischemia or petechiae, other (right BKA) Neurologic: pupils equal and round, CN II-XII normal Psychiatric: mood appropriate, affect normal CBC and BMP: 05/01/21 04:31 05/01/21 04:31 ABG, PT/INR, D-dimer: PT/INR, D-dimer PT 22.4 Sec. (12.2-14.9) H 04/28/21 06:53 INR 1.92 (0.87-1.13) H 04/28/21 06:53 Abnormal lab findings: Abnormal Labs 04/27/21 04/27/21 04/27/21 19:31 19:46 19:46 RBC 2.45 L Hgb 7.2 L Hct 21.6 L MCHC RDW 17.1 H Lymph % (Auto) Bay % (Auto) 8.4 H Eos % (Auto) Lymph # (Auto) 0.8 L Seg Neutrophils % 72.4 H PT 22.3 H INR 1.91 H APTT 48.5 H Potassium 5.4 H Chloride Carbon Dioxide 21 L BUN 36 H Creatinine 2.5 H Glucose 166 H POC Glucose Calcium 7.9 L Total Protein 6.2 L Albumin 2.4 L Urine WBC (Auto) Urine Creatinine Crossmatch 04/27/21 04/28/21 04/28/21 19:46 06:53 06:53 RBC 2.93 L Hgb 8.4 L Hct 25.3 L MCHC RDW 16.3 H Lymph % (Auto) Bay % (Auto) 10.1 H Eos % (Auto) Lymph # (Auto) 1.0 L Seg Neutrophils % 70.8 H PT 22.4 H INR 1.92 H APTT Potassium Chloride Carbon Dioxide BUN Creatinine Glucose POC Glucose Calcium Total Protein Albumin Urine WBC (Auto) Urine Creatinine Crossmatch See Detail 04/28/21 04/28/21 04/28/21 06:53 07:42 11:49 RBC Hgb Hct MCHC RDW Lymph % (Auto) Bay % (Auto) Eos % (Auto) Lymph # (Auto) Seg Neutrophils % PT INR APTT Potassium Chloride 108.0 H Carbon Dioxide 20 L BUN 35 H Creatinine 2.6 H Glucose 164 H POC Glucose 158 H 149 H Calcium 7.2 L Total Protein Albumin Urine WBC (Auto) Urine Creatinine Crossmatch 04/28/21 04/28/21 04/28/21 12:30 12:30 16:42 RBC Hgb Hct MCHC RDW Lymph % (Auto) Bay % (Auto) Eos % (Auto) Lymph # (Auto) Seg Neutrophils % PT INR APTT Potassium Chloride Carbon Dioxide BUN Creatinine Glucose POC Glucose 157 H Calcium Total Protein Albumin Urine WBC (Auto) 13.0 H Urine Creatinine 116.6 H Crossmatch 04/28/21 04/29/21 04/29/21 21:10 07:00 07:00 RBC 2.66 L Hgb 7.9 L Hct 23.3 L MCHC RDW 16.7 H Lymph % (Auto) 11.3 L Bay % (Auto) 9.4 H Eos % (Auto) Lymph # (Auto) 0.7 L Seg Neutrophils % 76.0 H PT INR APTT Potassium 5.1 H Chloride 108.3 H Carbon Dioxide 18 L BUN 42 H Creatinine 3.0 H Glucose 172 H POC Glucose 144 H Calcium 8.0 L Total Protein Albumin Urine WBC (Auto) Urine Creatinine Crossmatch 04/29/21 04/29/21 04/29/21 07:37 11:27 16:37 RBC Hgb Hct MCHC RDW Lymph % (Auto) Bay % (Auto) Eos % (Auto) Lymph # (Auto) Seg Neutrophils % PT INR APTT Potassium Chloride Carbon Dioxide BUN Creatinine Glucose POC Glucose 163 H 153 H 132 H Calcium Total Protein Albumin Urine WBC (Auto) Urine Creatinine Crossmatch 04/29/21 04/30/21 04/30/21 20:19 04:29 07:51 RBC Hgb Hct MCHC RDW Lymph % (Auto) Bay % (Auto) Eos % (Auto) Lymph # (Auto) Seg Neutrophils % PT INR APTT Potassium Chloride Carbon Dioxide 21 L BUN 42 H Creatinine 3.4 H Glucose 165 H POC Glucose 162 H 153 H Calcium 7.7 L Total Protein Albumin Urine WBC (Auto) Urine Creatinine Crossmatch 04/30/21 04/30/21 04/30/21 11:47 17:23 20:14 RBC Hgb Hct MCHC RDW Lymph % (Auto) Bay % (Auto) Eos % (Auto) Lymph # (Auto) Seg Neutrophils % PT INR APTT Potassium Chloride Carbon Dioxide BUN Creatinine Glucose POC Glucose 155 H 183 H 210 H Calcium Total Protein Albumin Urine WBC (Auto) Urine Creatinine Crossmatch 05/01/21 05/01/21 05/01/21 04:31 04:31 11:34 RBC 2.32 L Hgb 7.0 L Hct 20.3 L MCHC 35 H RDW 16.9 H Lymph % (Auto) 10.6 L [place] % (Auto) 10.7 H Eos % (Auto) 4.4 H Lymph # (Auto) 0.7 L Seg Neutrophils % 73.8 H PT INR APTT Potassium Chloride Carbon Dioxide BUN 43 H Creatinine 3.7 H Glucose 232 H POC Glucose 256 H Calcium 7.5 L Total Protein Albumin Urine WBC (Auto) Urine Creatinine Crossmatch Allied health notes reviewed: nursing
--- NOTE | 2021-05-01 16:06 | Progress Note ---
Assessment and Plan --Acute metabolic encephalopathy Patient remains lethargic and stuporous Continue to acute renal failure CT head showed no acute infarction Patient also has history of underlying dementia -- Upper GI bleed Consult placed to anode builder for evaluation. Meanwhile patient has been started on proton pump inhibitor. Continue to hold anticoagulation and monitor H&H Patient could not complete the colonic prep for colonoscopy Conservative management recommended by GI --Anemia due to acute GI bleed, POA Continue to monitor H&H and transfuse as needed -- Acute on chronic renal failure 2.5>2.6>3.0>3.4>3.7 Likely due to vasomotor nephropathy versus ATN Consult placed to nephrology for evaluation. We will monitor BUN and creatinine. Continue IV fluid -- Hypertensive urgency, malignant Patient was on Cardene drip which was later tapered off. We will monitor blood pressure closely. Resumed his home medications --Hyperkalemia, continue bicarb drip for now, follow BMP -- Atrial fibrillation, chronic Rate currently controlled. We hold anticoagulation meanwhile in view of the GI bleed Consult cardiology and follow recommendation --Dementia, continue supportive care -- DVT prophylaxis Patient placed on sequential compression device. -- Full code status Brief history: 70-year-old male with h/o atrial fib, arthritis, diabetes, heart failure, hypertension, chronic renal failure, Dementia, Neuropathy presented to the emergency room complaining of dark stool and generalized fatigue for few days. Patient had similar presentation during his prior admission and was recently discharged on 04/16/2021 after having an endoscopy which showed no acute bleeding. Patient has been on anticoagulation with Eliquis which was on hold during discharge. According to patient brother dose was recently increased to 5 mg twice a day few days ago and thereafter patient started having dark stools. Labs were drawn sometime yesterday patient was found to be anemic, He got a call from the [facility] and was encouraged to be taken to the hospital for possible blood transfusion. Upon arrival in the emergency room blood pressure was quite elevated with systolic of about 216 and diastolic of 119 mmHg. He was subsequently placed on nicardipine drip which was later tapered off. Work-up in the ER reveals a hemoglobin of 7.2 and hematocrit of 21.6. Potassium was slightly elevated at 5.4, also had elevated BUN and creatinine. Patient was admitted for GI bleed. Daily clinical course; 04/28/21: hold eliquis, cont to follow H/H, follow GI recommendation-plan for endoscopy tomorrow. will also consult cardiology to make recommendation for chronic anticoagulation use in the light of recurrent GI bleed. 04/29/21: Patient refused to take GoLYTELY last night. Did not have adequate prep for colonoscopy so GI canceled the procedure. Discussed with the brother at the bedside. Renal function is declining-patient placed on bicarbonate drip. We will transfer this patient to telemetry. Will start on clear liquid diet, if patient continues to have very poor p.o. intake will place on Dobbhoff tube. Continue to monitor BMP and H&H. Continue to hold Eliquis -as patient is no l onger a anticoagulation candidate due to recurrent GI bleed and severe anemia per cardiology recommendation. Discussed with brother at the bedside. 04/30/12: Creatinine 3.4 today, potassium level improved. Patient remains lethargic with poor oral intake. Will place Dobbhoff tube with tube feeding. Continue D5 bicarbonate drip. Nephrology following, continue to monitor BMP. Discussed with brother at the bedside and updated with full details. 05/01/21; patient initiated on tube feeding, creatinine 3.7 today. Continue bicarbonate drip and monitor H&H. Patient mental status has not improved. CT head did not show any acute process but has chronic micro angiopathy. Continue to hold anticoagulation. Per RN patient did have small blood stained bowel movement. Continue PPI and continue to monitor. Subjective Date of service: 05/01/21 Principal diagnosis: gi bleed Interval history: Patient seen and examined. Medical records and medication list reviewed. No acute event overnight noted by the RN. BP stable RN reported small blood stain stool bowel movement Patient remains lethargic with very poor oral intake Objective - Exam Narrative Exam: GENERAL: well-developed elderly white male lying on bed appeared to be l ethargic and stuporous. Open eyes with verbal command HEENT: Normocephalic. Atraumatic. No conjunctival congestion or icterus. Patient has moist mucous membranes. NECK: Supple. Trachea midline. CHEST/LUNGS: Clear to auscultated bilaterally, breathing nonlabored. No wheezes crackles or rhonchi. HEART/CARDIOVASCULAR: Regular in rate and rhythm. S1 and S2 positive. ABDOMEN: Abdomen is soft, nontender. Patient has normal bowel sounds. SKIN: There is no rash. Warm and dry. NEURO: No focal motor deficit. Follows verbal command. MUSCULOSKELETAL: No joint effusion or tenderness. EXTRIMITY: No edema, no cyanosis or clubbing. PSYCH: Patient is nonverbal and unable to assess. - Constitutional Vitals: Vital Signs - 12hr 05/01/21 05/01/21 05/01/21 09:01 11:39 14:00 Temperature 98.2 F 97.9 F Pulse Rate 98 H 103 H 89 Pulse Rate [ 89 Apical] Respiratory 20 20 Rate Blood Pressure 145/65 153/94 O2 Sat by Pulse 91 91 Oximetry - Labs CBC & Chem 7: 05/02/21 03:41 05/02/21 03:41 Labs: Abnormal lab results 04/30/21 04/30/21 05/01/21 Range/Units 17:23 20:14 04:31 RBC (3.65-5.03) M/mm3 Hgb (11.8-15.2) gm/dl Hct (35.5-45.6) % MCHC (32-34) % RDW (13.2-15.2) % Lymph % (Auto) (13.4-35.0) % Bonner % (Auto) (0.0-7.3) % Eos % (Auto) (0.0-4.3) % Lymph # (Auto) (1.2-5.4) K/mm3 Seg Neutrophils % (40.0-70.0) % BUN 43 H (9-20) mg/dL Creatinine 3.7 H (0.8-1.3) mg/dL Glucose 232 H (75-100) mg/dL POC Glucose 183 H 210 H (70-105) mg/dL Calcium 7.5 L (8.4-10.2) mg/dL Crossmatch 05/01/21 05/01/21 05/01/21 Range/Units 04:31 11:34 13:15 RBC 2.32 L (3.65-5.03) M/mm3 Hgb 7.0 L (11.8-15.2) gm/dl Hct 20.3 L (35.5-45.6) % MCHC 35 H (32-34) % RDW 16.9 H (13.2-15.2) % Lymph % (Auto) 10.6 L (13.4-35.0) % Bonner % (Auto) 10.7 H (0.0-7.3) % Eos % (Auto) 4.4 H (0.0-4.3) % Lymph # (Auto) 0.7 L (1.2-5.4) K/mm3 Seg Neutrophils % 73.8 H (40.0-70.0) % BUN (9-20) mg/dL Creatinine (0.8-1.3) mg/dL Glucose (75-100) mg/dL POC Glucose 256 H (70-105) mg/dL Calcium (8.4-10.2) mg/dL Crossmatch See Detail
[2021-05-01] MEDS ORDERED: FUROSEMIDE 20 MG/2 ML INJ ONE ×2 (19:34→19:41)
[2021-05-01] MEDS ORDERED: FUROSEMIDE 40 MG/4 ML INJ IV ONE (20:00)
[2021-05-01] MEDS: ACETAMINOPHEN 325 MG TAB PO PRN (21:00)
[2021-05-01] MEDS ORDERED: diphenhydrAMINE 50 MG/ML VIAL IV ONE (21:38)
[2021-05-02] MEDS: INSULIN LISPRO 100 UNIT/ML SUB-Q SCH ×5 (00:33→22:10)
[2021-05-02 05:37] LABS: Basophils % (Auto) 0.3 % (0.0-1.8); Eosinophils # (Auto) 0.1 K/mm3 (0.0-0.4); Hematocrit 21.7 % (35.5-45.6); Hemoglobin 7.3 gm/dl (11.8-15.2); Lymphocytes # (Auto) 0.7 K/mm3 (1.2-5.4); Lymphocytes % (Auto) 7.8 % (13.4-35.0); Mean Corpuscular HGB Conc 34 % (32-34); Mean Corpuscular Volume 89 fl (84-94); Monocytes # (Auto) 0.9 K/mm3 (0.0-0.8); Monocytes % (Auto) 9.6 % (0.0-7.3); Platelet Count 118 K/mm3 (140-440); Red Blood Count 2.45 M/mm3 (3.65-5.03); Red Cell Distribution Width 16.8 % (13.2-15.2)
[2021-05-02 05:53] LABS: Calcium 7.3 mg/dL (8.4-10.2)
[2021-05-02] MEDS: carvediloL 3.125 MG TAB PO SCH ×2 (11:27→22:11)
[2021-05-02] MEDS: PANTOPRAZOLE 40 MG INJ IV SCH (11:27)
[2021-05-02] MEDS: TAMSULOSIN 0.4 MG CAP PO SCH (11:27)
--- NOTE | 2021-05-02 12:08 | Consultation ---
History of Present Illness - Reason for Consult Consult date: 05/02/21 Reason for consult: MHE Requesting physician: FIORELLA MEDRANO - Chief Complaint Chief complaint: Melena - History of Present Psychiatric Illness Per ED Provider: Patient is a 70-year-old male who presents emergency room with complaints of dark stool and fatigue. Patient states he is started a couple days ago. Patient states they are worsening. Patient denies pain at this time. Patient is lethargic but easily arousable. Patient answers all questions appropriately. Patient is oriented x to. Patient oriented to person and place. Patient disoriented to situation and date.. Caregiver at bedside. Caregiver states that approximately a month ago they increased his Eliquis to 5 mg twice a day and approximately 3 days ago he started having dark stools. Caregiver states that he had blood drawn yesterday and was found to be severely anemic. Patient's caregiver states that the [facility] called him to be brought to the hospital for a possible transfusion. PSYCH HPI Limited HPI due to chronic patient limited HPI due to current patient status. Patient daughter and also caregiver was seen at bedside who provided most of the HPI. Per patient brother, he report patient came to the hospital due to low blood levels, and fatigue, states patient has extensive medical history, he has been the primary caregiver at home. He reports patient has no prior mental health issues or diagnosis of dementia but pt does have mood disorders in which he appears confused and comes in and out of it and its mostly due to issues like this when something medical is going on. Pt brother denies other complaints. Says he also gets aggressive when he is bothered so the nurses are aware. PAST PSYCHIATRIC HISTORY Diagnoses: none reported Suicide attempts or Self-harm behavior: Prior psychiatric hospitalizations: Substance Abuse history: Previous psychiatric medications tried: Outpatient treatment: PAST MEDICAL HISTORY: multile, CAD, CHF, DM, R knee AMputation, Family Psychiatric History: None reported or documented SOCIAL HISTORY Marital Status: single Living Arrangements: with brother Employment Status: disabled Access to guns/weapons: none Education: n/a History of Abuse: n/a Legal History:n/a REVIEW OF SYSTEMS ROS cannot be reliably obtained from the patient due to somnolence. MENTAL STATUS EXAMINATION Pt sleepin on CPAP machine. Diagnoses: Behavioral concern another Treatment Plan Primarily a medical issue due to comorbid and history provied by brother. Recommend olazanpine 2.5 mg PRN for intermittent confusion/delirium. MEDICATIONS: Risks, benefits and alternatives of medications discussed with the patient, questions answered and consent obtained from patient. PSYCHOTHERAPY: Supportive psychotherapy provided MEDICAL: Per primary team DELIRIUM PRECAUTIONS: Please re-orient patient frequently, keep lights on during the day, and minimize benzodiazepines and opiates as these medications could worsen patient's confusion. CURRICULUM COACH: DISPOSITION: Do Not Recommend acute inpatient psychiatric hospitalization at this time. Case discussed with Dr. Rayo who agrees with current disposition FOLLOW-UP: Will follow for cezar weaver Thank you for the consult. Please contact with any questions and/or concerns. Medications and Allergies Allergies Allergy/AdvReac Type Severity Reaction Status Date / Time hydralazine Allergy Vomiting Verified 04/28/21 02:00 isosorbide [From Imdur] Allergy Unknown Verified 04/28/21 02:00 tramadol Allergy Shortness Verified 04/28/21 02:00 of Breath Home Medications Medication Instructions Recorded Confirmed Last Taken Type Pantoprazole Sodium 40 mg PO BID #60 tablet. 04/16/21 04/28/21 04/26/21 21:00 Rx Acetaminophen/Diphenhydramine 2 each PO TID PRN 04/28/21 04/28/21 04/26/21 21:00 History [Tylenol Pm Ex-Strength Caplet] Apixaban [Eliquis] 5 mg PO BID 04/28/21 04/28/21 04/26/21 21:00 History AtorvaSTATin [Lipitor] 40 mg PO QHS 04/28/21 04/28/21 04/26/21 21:00 History B Complex W/Vitamin C [Allbee with 500 mg PO DAILY 04/28/21 04/28/21 04/26/21 09:00 History C] Ferrous Sulfate [Ferrous Sulfate 324 mg PO BID 04/28/21 04/28/21 04/26/21 21:00 History 324 MG] Insulin Glargine,Hum.rec.anlog 25 unit SQ HS PRN 04/28/21 04/28/21 04/26/21 21:00 History [Lantus Solostar] Novolin 70-30 Flexpen 4 units SUB-Q PRN PRN 04/28/21 04/28/21 04/25/21 02:10 History Sennosides Tab [Senokot] 8.6 mg PO DAILY 04/28/21 04/28/21 04/26/21 21:00 History Tamsulosin [Flomax] 0.4 mg PO QDAY 04/28/21 04/28/21 04/26/21 09:00 History carvediloL [Coreg] 6.25 mg PO BID 04/28/21 04/28/21 04/26/21 21:00 History lisinopriL [Zestril] 5 mg PO QDAY 04/28/21 04/28/21 04/26/21 09:00 History Active Meds: Active Medications Acetaminophen (Acetaminophen 325 Mg Tab) 650 mg PO Q6H PRN PRN Reason: Pain, Mild (1-3) Last Admin: 05/01/21 21:00 Dose: 650 mg Documented by: Lipase/Protease/Amylase (Lipase 10,500/Protease 25,000/Amylase 43,750 (Units) Dr Monreal) 1 each FEEDTUBE PRN PRN PRN Reason: For Clogged Feeding Tube Atorvastatin Calcium (Atorvastatin 40 Mg Tab) 40 mg PO QHS NATALIA Last Admin: 05/01/21 21:13 Dose: 40 mg Documented by: Carvedilol (Carvedilol 3.125 Mg Tab) 3.125 mg PO BID NATALIA Last Admin: 05/02/21 11:27 Dose: 3.125 mg Documented by: Clonidine HCl (Clonidine Tts 0.2 Mg/24 Hr Patch) 0.2 mg TD We [facility] Last Admin: 04/28/21 00:59 Dose: 0.2 mg Documented by: Dextrose (Dextrose 50% In Water (25gm) 50 Ml Syringe) 50 ml IV Q30MIN PRN; Protocol PRN Reason: Hypoglycemia Haloperidol Lactate (Haloperidol Lactate 5 Mg/1 Ml Inj) 2 mg IM Q12H PRN PRN Reason: Agitation Last Admin: 04/30/21 21:09 Dose: 2 mg Documented by: Sodium Bicarbonate 150 meq/ (Dextrose) 1,150 mls @ 75 mls/hr IV DIRECT NATALIA Last Admin: 04/30/21 22:14 Dose: 75 mls/hr Documented by: Insulin Human Lispro (Insulin Lispro 100 Unit/Ml) 0 unit SUB-Q ACHS NATALIA; Protocol Last Admin: 05/02/21 11:26 Dose: Not Given Documented by: Lansoprazole (Lansoprazole 30 Mg Solutab) 30 mg FEEDTUBE BID [facility] Lorazepam (Lorazepam 2 Mg/Ml Vial) 2 mg IV Q12H PRN PRN Reason: Agitation Last Admin: 04/30/21 21:09 Dose: 2 mg Documented by: Metoprolol Tartrate (Metoprolol Tartrate 5 Mg/5 Ml Inj) 5 mg IV Q6HR PRN PRN Reason: SBP>165, DBP>95 Last Admin: 04/28/21 01:10 Dose: 5 mg Documented by: Morphine Sulfate (Morphine 2 Mg/1 Ml Inj) 2 mg IV Q3H PRN PRN Reason: Pain, Moderate (4-6) Last Admin: 04/29/21 20:48 Dose: 2 mg Documented by: Ondansetron HCl (Ondansetron 4 Mg/2 Ml Inj) 4 mg IV Q8H PRN PRN Reason: Nausea And Vomiting Simple Syrup (Simple Syrup 15 Ml) 15 ml FEEDTUBE PRN PRN PRN Reason: Hypoglycemia Simple Syrup (Simple Syrup 15 Ml) 30 ml FEEDTUBE PRN PRN PRN Reason: Hypoglycemia Sodium Bicarbonate (Sodium Bicarbonate 325 Mg Tab) 325 mg FEEDTUBE PRN PRN PRN Reason: For Clogged Feeding Tube Sodium Chloride (Sodium Chloride 0.9% 10 Ml Flush Syringe) 10 ml IV BID [facility] Last Admin: 05/02/21 11:27 Dose: 10 ml Documented by: Sodium Chloride (Sodium Chloride 0.9% 10 Ml Flush Syringe) 10 ml IV PRN PRN PRN Reason: LINE FLUSH Tamsulosin HCl (Tamsulosin 0.4 Mg Cap) 0.4 mg PO QDAY [facility] Last Admin: 05/02/21 11:27 Dose: 0.4 mg Documented by: Mental Status Exam - Vital signs Last Vital Signs Temp 98.9 F 05/02/21 05:41 Pulse 97 H 05/02/21 09:52 Resp 22 05/02/21 09:52 BP 147/93 05/02/21 05:41 Pulse Ox 100 05/02/21 09:52 Results Result Diagrams: 05/02/21 03:41 05/02/21 03:41 Abnormal lab results 04/27/21 05/01/21 05/01/21 Range/Units 19:46 13:15 16:44 RBC (3.65-5.03) M/mm3 Hgb (11.8-15.2) gm/dl Hct (35.5-45.6) % RDW (13.2-15.2) % Plt Count (140-440) K/mm3 Lymph % (Auto) (13.4-35.0) % K[place]y % (Auto) (0.0-7.3) % Lymph # (Auto) (1.2-5.4) K/mm3 [place]enedy # (Auto) (0.0-0.8) K/mm3 Seg Neutrophils % (40.0-70.0) % Seg Neutrophils # (1.8-7.7) K/mm3 BUN (9-20) mg/dL Creatinine (0.8-1.3) mg/dL Glucose (75-100) mg/dL POC Glucose 279 H (70-105) mg/dL Calcium (8.4-10.2) mg/dL Crossmatch See Detail See Detail 05/01/21 05/01/21 05/02/21 Range/Units 19:40 22:41 03:41 RBC (3.65-5.03) M/mm3 Hgb (11.8-15.2) gm/dl Hct (35.5-45.6) % RDW (13.2-15.2) % Plt Count (140-440) K/mm3 Lymph % (Auto) (13.4-35.0) % [place] % (Auto) (0.0-7.3) % Lymph # (Auto) (1.2-5.4) K/mm3 [place]y # (Auto) (0.0-0.8) K/mm3 Seg Neutrophils % (40.0-70.0) % Seg Neutrophils # (1.8-7.7) K/mm3 BUN 48 H (9-20) mg/dL Creatinine 4.0 H (0.8-1.3) mg/dL Glucose 291 H (75-100) mg/dL POC Glucose 231 H 240 H (70-105) mg/dL Calcium 7.3 L (8.4-10.2) mg/dL Crossmatch 05/02/21 05/02/21 05/02/21 Range/Units 03:41 06:13 08:19 RBC 2.45 L (3.65-5.03) M/mm3 Hgb 7.3 L (11.8-15.2) gm/dl Hct 21.7 L (35.5-45.6) % RDW 16.8 H (13.2-15.2) % Plt Count 118 L (140-440) K/mm3 Lymph % (Auto) 7.8 L (13.4-35.0) % [place]y % (Auto) 9.6 H (0.0-7.3) % Lymph # (Auto) 0.7 L (1.2-5.4) K/mm3 [place] # (Auto) 0.9 H (0.0-0.8) K/mm3 Seg Neutrophils % 81.3 H (40.0-70.0) % Seg Neutrophils # 7.8 H (1.8-7.7) K/mm3 BUN (9-20) mg/dL Creatinine (0.8-1.3) mg/dL Glucose (75-100) mg/dL POC Glucose 314 H 311 H (70-105) mg/dL Calcium (8.4-10.2) mg/dL Crossmatch All other labs normal.
--- NOTE | 2021-05-02 12:13 | Progress Note ---
Assessment and Plan - Patient Problems (1) Chronic atrial fibrillation Current Visit: Yes Status: Acute Plan to address problem: Patient on the rate control strategy of atrial fibrillation. No oral anticoagulation due to severe anemia while on Eliquis. We will continue conservative cardiac management. Subjective Date of service: 05/02/21 Principal diagnosis: Ac. gastrointestinal bleed; Hypertensive emergency; A-Fib; DM II Interval history: Patient is lethargic, currently on BiPAP. Chronic atrial fibrillation rate is well controlled in the 90s. Blood pressure is stable at 148 systolic. Objective Vital Signs Temp Pulse Pulse Resp Resp BP BP 05/02/21 09:52 97 H 22 05/02/21 05:41 98.9 F 93 H 18 147/93 05/02/21 05:39 95 H 148/82 05/02/21 05:29 86 05/02/21 01:05 87 23 154/57 05/02/21 00:03 99.6 F 89 18 140/65 05/01/21 23:00 95 H 05/01/21 22:00 19 17 05/01/21 21:01 92 H 149/74 05/01/21 21:00 17 05/01/21 20:23 102.3 F H 98 H 20 173/77 05/01/21 20:00 111 H 05/01/21 19:50 99 F 114 H 17 136/78 05/01/21 18:25 141/93 05/01/21 16:46 78 22 158/87 05/01/21 16:00 97.7 F 84 22 136/74 05/01/21 14:00 89 89 Pulse Ox 05/02/21 09:52 100 05/02/21 05:41 100 05/02/21 05:39 100 05/02/21 05:29 05/02/21 01:05 100 05/02/21 00:03 100 05/01/21 23:00 05/01/21 22:00 100 05/01/21 21:01 05/01/21 21:00 05/01/21 20:23 99 05/01/21 20:00 05/01/21 19:50 100 05/01/21 18:25 05/01/21 16:46 91 05/01/21 16:00 91 05/01/21 14:00 - Physical Examination General: Other (Lethargic, on BiPAP) HEENT: Positive: PERRL, Normocephaly Neck: Positive: trachea midline Cardiac: Positive: irregularly irregular Lungs: Positive: Decreased Breath Sounds Neuro: Positive: Weakness Abdomen: Positive: Soft Skin: Positive: Clear Extremities: Absent: edema - Labs and Meds CBC 05/02/21 Range/Units 03:41 WBC 9.5 (4.5-11.0) K/mm3 RBC 2.45 L (3.65-5.03) M/mm3 Hgb 7.3 L (11.8-15.2) gm/dl Hct 21.7 L (35.5-45.6) % Plt Count 118 L (140-440) K/mm3 Lymph # (Auto) 0.7 L (1.2-5.4) K/mm3 Williams # (Auto) 0.9 H (0.0-0.8) K/mm3 Eos # (Auto) 0.1 (0.0-0.4) K/mm3 Baso # (Auto) 0.0 (0.0-0.1) K/mm3 Comprehensive Metabolic Panel 05/02/21 Range/Units 03:41 Sodium 138 (137-145) mmol/L Potassium 4.3 (3.6-5.0) mmol/L Chloride 99.2 (98-107) mmol/L Carbon Dioxide 28 (22-30) mmol/L BUN 48 H (9-20) mg/dL Creatinine 4.0 H (0.8-1.3) mg/dL Glucose 291 H (75-100) mg/dL Calcium 7.3 L (8.4-10.2) mg/dL - Allied health notes Allied health notes reviewed: nursing
--- NOTE | 2021-05-02 14:08 | Progress Note ---
Assessment and Plan - Patient Problems (1) Acute on chronic renal failure Status: Acute Qualifiers: Acute renal failure type: unspecified Chronic kidney disease stage: unspecified stage Qualified Code(s): N17.9 - Acute kidney failure, unspecified; N18.9 - Chronic kidney disease, unspecified (2) Anemia Status: Acute Qualifiers: Anemia type: unspecified type Qualified Code(s): D64.9 - Anemia, unspecified (3) Upper GI bleed Status: Acute (4) Chronic atrial fibrillation Status: Acute (5) Hyperkalemia Status: Acute (6) Hypertensive urgency, malignant Status: Acute (7) Atrial fibrillation Status: Acute Qualifiers: Atrial fibrillation type: unspecified Qualified Code(s): I48.91 - Unspecified atrial fibrillation Subjective Date of service: 05/02/21 Principal diagnosis: Ac. gastrointestinal bleed; Hypertensive emergency; A-Fib; DM II Interval history: Cancel the progress note. Patient not seen by me to day. Objective Vital Signs - 12hr 05/02/21 05/02/21 05/02/21 05:29 05:39 05:41 Temperature 98.9 F Pulse Rate 86 95 H 93 H Respiratory 18 Rate Blood Pressure 148/82 147/93 O2 Sat by Pulse 100 100 Oximetry 05/02/21 05/02/21 09:52 12:52 Temperature Pulse Rate 97 H 96 H Respiratory 22 Rate Blood Pressure O2 Sat by Pulse 100 Oximetry Constitutional: no acute distress Eyes: non-icteric ENT: oropharynx moist Neck: supple, lymphadenopathy, no JVD Effort: mildly labored Ascultation: Bilateral: diminished breath sounds, rhonchi Percussion: Bilateral: not dull Cardiovascular: regular rate and rhythm Gastrointestinal: normoactive bowel sounds, soft, non-tender, non-distended (protuberant) Integumentary: rash Extremities: pink and warm, no ischemia or petechiae, other (right BKA) Neurologic: pupils equal and round, CN II-XII normal, other (chronic encephalopathy) Psychiatric: anxious CBC and BMP: 05/03/21 05:26 05/03/21 05:26 ABG, PT/INR, D-dimer: PT/INR, D-dimer PT 22.4 Sec. (12.2-14.9) H 04/28/21 06:53 INR 1.92 (0.87-1.13) H 04/28/21 06:53 Abnormal lab findings: Abnormal Labs 04/27/21 04/27/21 04/27/21 19:31 19:46 19:46 RBC 2.45 L Hgb 7.2 L Hct 21.6 L MCHC RDW 17.1 H Plt Count Lymph % (Auto) [place] % (Auto) 8.4 H Eos % (Auto) Lymph # (Auto) 0.8 L [place] # (Auto) Seg Neutrophils % 72.4 H Seg Neutrophils # PT 22.3 H INR 1.91 H APTT 48.5 H Potassium 5.4 H Chloride Carbon Dioxide 21 L BUN 36 H Creatinine 2.5 H Glucose 166 H POC Glucose Calcium 7.9 L Total Protein 6.2 L Albumin 2.4 L Urine WBC (Auto) Urine Creatinine Crossmatch 04/27/21 04/28/21 04/28/21 19:46 06:53 06:53 RBC 2.93 L Hgb 8.4 L Hct 25.3 L MCHC RDW 16.3 H Plt Count Lymph % (Auto) [place] % (Auto) 10.1 H Eos % (Auto) Lymph # (Auto) 1.0 L [place] # (Auto) Seg Neutrophils % 70.8 H Seg Neutrophils # PT 22.4 H INR 1.92 H APTT Potassium Chloride Carbon Dioxide BUN Creatinine Glucose POC Glucose Calcium Total Protein Albumin Urine WBC (Auto) Urine Creatinine Crossmatch See Detail 04/28/21 04/28/21 04/28/21 06:53 07:42 11:49 RBC Hgb Hct MCHC RDW Plt Count Lymph % (Auto) [place] % (Auto) Eos % (Auto) Lymph # (Auto) [place] # (Auto) Seg Neutrophils % Seg Neutrophils # PT INR APTT Potassium Chloride 108.0 H Carbon Dioxide 20 L BUN 35 H Creatinine 2.6 H Glucose 164 H POC Glucose 158 H 149 H Calcium 7.2 L Total Protein Albumin Urine WBC (Auto) Urine Creatinine Crossmatch 04/28/21 04/28/21 04/28/21 12:30 12:30 16:42 RBC Hgb Hct MCHC RDW Plt Count Lymph % (Auto) [place] % (Auto) Eos % (Auto) Lymph # (Auto) [place] # (Auto) Seg Neutrophils % Seg Neutrophils # PT INR APTT Potassium Chloride Carbon Dioxide BUN Creatinine Glucose POC Glucose 157 H Calcium Total Protein Albumin Urine WBC (Auto) 13.0 H Urine Creatinine 116.6 H Crossmatch 04/28/21 04/29/21 04/29/21 21:10 07:00 07:00 RBC 2.66 L Hgb 7.9 L Hct 23.3 L MCHC RDW 16.7 H Plt Count Lymph % (Auto) 11.3 L [place] % (Auto) 9.4 H Eos % (Auto) Lymph # (Auto) 0.7 L [place] # (Auto) Seg Neutrophils % 76.0 H Seg Neutrophils # PT INR APTT Potassium 5.1 H Chloride 108.3 H Carbon Dioxide 18 L BUN 42 H Creatinine 3.0 H Glucose 172 H POC Glucose 144 H Calcium 8.0 L Total Protein Albumin Urine WBC (Auto) Urine Creatinine Crossmatch 04/29/21 04/29/21 04/29/21 07:37 11:27 16:37 RBC Hgb Hct MCHC RDW Plt Count Lymph % (Auto) [place] % (Auto) Eos % (Auto) Lymph # (Auto) [place] # (Auto) Seg Neutrophils % Seg Neutrophils # PT INR APTT Potassium Chloride Carbon Dioxide BUN Creatinine Glucose POC Glucose 163 H 153 H 132 H Calcium Total Protein Albumin Urine WBC (Auto) Urine Creatinine Crossmatch 04/29/21 04/30/21 04/30/21 20:19 04:29 07:51 RBC Hgb Hct MCHC RDW Plt Count Lymph % (Auto) [place] % (Auto) Eos % (Auto) Lymph # (Auto) [place] # (Auto) Seg Neutrophils % Seg Neutrophils # PT INR APTT Potassium Chloride Carbon Dioxide 21 L BUN 42 H Creatinine 3.4 H Glucose 165 H POC Glucose 162 H 153 H Calcium 7.7 L Total Protein Albumin Urine WBC (Auto) Urine Creatinine Crossmatch 04/30/21 04/30/21 04/30/21 11:47 17:23 20:14 RBC Hgb Hct MCHC RDW Plt Count Lymph % (Auto) [place] % (Auto) Eos % (Auto) Lymph # (Auto) [place] # (Auto) Seg Neutrophils % Seg Neutrophils # PT INR APTT Potassium Chloride Carbon Dioxide BUN Creatinine Glucose POC Glucose 155 H 183 H 210 H Calcium Total Protein Albumin Urine WBC (Auto) Urine Creatinine Crossmatch 05/01/21 05/01/21 05/01/21 04:31 04:31 11:34 RBC 2.32 L Hgb 7.0 L Hct 20.3 L MCHC 35 H RDW 16.9 H Plt Count Lymph % (Auto) 10.6 L [place] % (Auto) 10.7 H Eos % (Auto) 4.4 H Lymph # (Auto) 0.7 L [place] # (Auto) Seg Neutrophils % 73.8 H Seg Neutrophils # PT INR APTT Potassium Chloride Carbon Dioxide BUN 43 H Creatinine 3.7 H Glucose 232 H POC Glucose 256 H Calcium 7.5 L Total Protein Albumin Urine WBC (Auto) Urine Creatinine Crossmatch 05/01/21 05/01/21 05/01/21 13:15 16:44 19:40 RBC Hgb Hct MCHC RDW Plt Count Lymph % (Auto) [place] % (Auto) Eos % (Auto) Lymph # (Auto) [place] # (Auto) Seg Neutrophils % Seg Neutrophils # PT INR APTT Potassium Chloride Carbon Dioxide BUN Creatinine Glucose POC Glucose 279 H 231 H Calcium Total Protein Albumin Urine WBC (Auto) Urine Creatinine Crossmatch See Detail 05/01/21 05/02/21 05/02/21 22:41 03:41 03:41 RBC 2.45 L Hgb 7.3 L Hct 21.7 L MCHC RDW 16.8 H Plt Count 118 L Lymph % (Auto) 7.8 L [place] % (Auto) 9.6 H Eos % (Auto) Lymph # (Auto) 0.7 L [place] # (Auto) 0.9 H Seg Neutrophils % 81.3 H Seg Neutrophils # 7.8 H PT INR APTT Potassium Chloride Carbon Dioxide BUN 48 H Creatinine 4.0 H Glucose 291 H POC Glucose 240 H Calcium 7.3 L Total Protein Albumin Urine WBC (Auto) Urine Creatinine Crossmatch 05/02/21 05/02/21 06:13 08:19 RBC Hgb Hct MCHC RDW Plt Count Lymph % (Auto) [place] % (Auto) Eos % (Auto) Lymph # (Auto) [place] # (Auto) Seg Neutrophils % Seg Neutrophils # PT INR APTT Potassium Chloride Carbon Dioxide BUN Creatinine Glucose POC Glucose 314 H 311 H Calcium Total Protein Albumin Urine WBC (Auto) Urine Creatinine Crossmatch Allied health notes reviewed: nursing
--- NOTE | 2021-05-02 15:17 | Progress Note ---
Assessment and Plan 1. Acute kidney injury: Likely vasomotor DAVID superimposed on CKD. ATN likely. Renal US negative for hydro. Continue IV fluids. Monitor renal function. Creatinine level increasing. Renal prognosis is guarded. Avoid nephrotoxic agents. Meds dosage based on GFR. Monitor for FISH INSPECTOR needs. 2. FEN: Hyperkalemia, improved, monitor. Metabolic acidosis, on bicarb drip, monitor. Monitor lytes and volume status. 3. GI bleed: Admitted with melena. Seen by GI. 4. Encephalopathy, POA: Likely chronic. ?baseline. 5. Hypertensive urgency: Patient was on Cardene drip which was later weaned off. Monitor blood pressure closely. 6. Atrial fibrillation: Rate currently controlled. No anticoagulation in view of the GI bleed. 7. DM type 2. Subjective: Patient was seen and examined at the bedside. Examination: General appearance: well-developed, appears stated age, not in distress HEENT: atraumatic, KEN Neck: trachea midline Respiratory: ctab Heart: S1S2, no murmur Abdomen: soft, bowel sounds heard, NT Integumentary: L foot dressing, chronic changes noted Neurologic: letahrgic, non-verbal, not following any command Ext: no edema, R BKA Subjective Date of service: 05/02/21 Principal diagnosis: Ac. gastrointestinal bleed; Hypertensive emergency; A-Fib; DM II Objective - Vital Signs Vital signs: Vital Signs - 12hr 05/02/21 05/02/21 05/02/21 05:29 05:39 05:41 Temperature 98.9 F Pulse Rate 86 95 H 93 H Respiratory 18 Rate Blood Pressure 148/82 147/93 O2 Sat by Pulse 100 100 Oximetry 05/02/21 05/02/21 05/02/21 09:52 12:52 14:06 Temperature Pulse Rate 97 H 96 H Respiratory 22 Rate Blood Pressure O2 Sat by Pulse 100 100 Oximetry - Lab 05/03/21 05:26 05/03/21 05:26 Most recent lab results Calcium 7.3 mg/dL (8.4-10.2) L 05/02/21 03:41 Urine Creatinine 116.6 mg/dL (0.1-20.0) H 04/28/21 12:30 Urine Sodium 35 mmol/L 04/28/21 12:30 Medications & Allergies - Medications Allergies/Adverse Reactions: Allergies hydralazine Allergy (Verified 04/28/21 02:00) Vomiting isosorbide [From Imdur] Allergy (Verified 04/28/21 02:00) Unknown tramadol Allergy (Verified 04/28/21 02:00) Shortness of Breath Home Medications: Home Medications Medication Instructions Recorded Confirmed Last Taken Type Pantoprazole Sodium 40 mg PO BID #60 tablet. 04/16/21 04/28/21 04/26/21 21:00 Rx Acetaminophen/Diphenhydramine 2 each PO TID PRN 04/28/21 04/28/21 04/26/21 21:00 History [Tylenol Pm Ex-Strength Caplet] Apixaban [Eliquis] 5 mg PO BID 04/28/21 04/28/21 04/26/21 21:00 History AtorvaSTATin [Lipitor] 40 mg PO QHS 04/28/21 04/28/21 04/26/21 21:00 History B Complex W/Vitamin C [Allbee with 500 mg PO DAILY 04/28/21 04/28/21 04/26/21 09:00 History C] Ferrous Sulfate [Ferrous Sulfate 324 mg PO BID 04/28/21 04/28/21 04/26/21 21:00 History 324 MG] Insulin Glargine,Hum.rec.anlog 25 unit SQ HS PRN 04/28/21 04/28/21 04/26/21 21:00 History [Lantus Solostar] Novolin 70-30 Flexpen 4 units SUB-Q PRN PRN 04/28/21 04/28/21 04/25/21 02:10 History Sennosides Tab [Senokot] 8.6 mg PO DAILY 04/28/21 04/28/21 04/26/21 21:00 History Tamsulosin [Flomax] 0.4 mg PO QDAY 04/28/21 04/28/21 04/26/21 09:00 History carvediloL [Coreg] 6.25 mg PO BID 04/28/21 04/28/21 04/26/21 21:00 History lisinopriL [Zestril] 5 mg PO QDAY 04/28/21 04/28/21 04/26/21 09:00 History Active Medications: Generic Name Dose Route Start Last Admin Trade Name Freq PRN Reason Stop Dose Admin Acetaminophen 650 mg 05/01/21 20:45 05/01/21 21:00 Acetaminophen 325 Mg Tab PO 650 mg Q6H PRN Administration Pain, Mild (1-3) Lipase/Protease/Amylase 1 each 04/30/21 13:04 Lipase 10,500/Protease 25,000/Amylase 43,750 (Units) Dr Monreal FEEDTUBE PRN PRN For Clogged Feeding Tube Atorvastatin Calcium 40 mg 04/28/21 22:00 05/01/21 21:13 Atorvastatin 40 Mg Tab PO 40 mg QHS NATALIA Administration Carvedilol 3.125 mg 04/28/21 22:00 05/02/21 11:27 Carvedilol 3.125 Mg Tab PO 3.125 mg BID NATALIA Administration Clonidine HCl 0.2 mg 04/27/21 23:45 04/28/21 00:59 Clonidine Tts 0.2 Mg/24 Hr Patch TD 0.2 mg We NATALIA Administration Dextrose 50 ml 04/27/21 22:35 Dextrose 50% In Water (25gm) 50 Ml Syringe IV Q30MIN PRN Hypoglycemia Protocol Haloperidol Lactate 2 mg 04/30/21 20:59 04/30/21 21:09 Haloperidol Lactate 5 Mg/1 Ml Inj IM 2 mg Q12H PRN Administration Agitation Sodium Bicarbonate 150 meq/ 1,150 mls @ 75 mls/hr 04/29/21 17:00 04/30/21 22:14 Dextrose IV 75 mls/hr DIRECT NATALIA Administration Insulin Human Lispro 0 unit 04/28/21 07:30 05/02/21 11:26 Insulin Lispro 100 Unit/Ml SUB-Q Not Given ACHS NATALIA Protocol Lansoprazole 30 mg 05/02/21 22:00 Lansoprazole 30 Mg Solutab FEEDTUBE BID NATALIA Lorazepam 2 mg 04/30/21 20:58 04/30/21 21:09 Lorazepam 2 Mg/Ml Vial IV 2 mg Q12H PRN Administration Agitation Metoprolol Tartrate 5 mg 04/27/21 23:22 04/28/21 01:10 Metoprolol Tartrate 5 Mg/5 Ml Inj IV 5 mg Q6HR PRN Administration SBP>165, DBP>95 Morphine Sulfate 2 mg 04/29/21 12:59 04/29/21 20:48 Morphine 2 Mg/1 Ml Inj IV 2 mg Q3H PRN Administration Pain, Moderate (4-6) Ondansetron HCl 4 mg 04/27/21 22:35 Ondansetron 4 Mg/2 Ml Inj IV Q8H PRN Nausea And Vomiting Simple Syrup 15 ml 04/30/21 13:04 Simple Syrup 15 Ml FEEDTUBE PRN PRN Hypoglycemia Simple Syrup 30 ml 04/30/21 13:04 Simple Syrup 15 Ml FEEDTUBE PRN PRN Hypoglycemia Sodium Bicarbonate 325 mg 04/30/21 13:04 Sodium Bicarbonate 325 Mg Tab FEEDTUBE PRN PRN For Clogged Feeding Tube Sodium Chloride 10 ml 04/28/21 10:00 05/02/21 11:27 Sodium Chloride 0.9% 10 Ml Flush Syringe IV 10 ml BID NATALIA Administration Sodium Chloride 10 ml 04/27/21 22:35 Sodium Chloride 0.9% 10 Ml Flush Syringe IV PRN PRN LINE FLUSH Tamsulosin HCl 0.4 mg 04/29/21 10:00 05/02/21 11:27 Tamsulosin 0.4 Mg Cap PO 0.4 mg QDAY NATALIA Administration
--- NOTE | 2021-05-02 16:58 | Progress Note ---
Assessment and Plan --Acute metabolic encephalopathy Patient remains lethargic and stuporous Continue to acute renal failure CT head showed no acute infarction Patient also has history of underlying dementia --Acute hypoxic respiratory failure, not POA Placed on high flow O2 overnight Likely due to volume overload Order repeat chest x-ray, continue scheduled nebulizer breathing treatment Order for 2D echo -- Upper GI bleed Consult placed to senior hris analyst for evaluation. Meanwhile patient has been started on proton pump inhibitor. Continue to hold anticoagulation and monitor H&H Patient could not complete the colonic prep for colonoscopy Conservative management recommended by GI --Anemia due to acute GI bleed, POA Continue to monitor H&H and transfuse as needed -- Acute on chronic renal failure 2.5>2.6>3.0>3.4>3.7 Likely due to vasomotor nephropathy versus ATN Consult placed to nephrology for evaluation. We will monitor BUN and creatinine. Continue IV fluid -- Hypertensive urgency, malignant Patient was on Cardene drip which was later tapered off. We will monitor blood pressure closely. Resumed his home medications --Hyperkalemia, continue bicarb drip for now, follow BMP -- Atrial fibrillation, chronic Rate currently controlled. We hold anticoagulation meanwhile in view of the GI bleed Consult cardiology and follow recommendation --Dementia, continue supportive care -- DVT prophylaxis Patient placed on sequential compression device. -- DNR: Discussed with the brother at the bedside today. family agreed for DNR and conservative medical management --Prognosis guarded Brief history: 70-year-old male with h/o atrial fib, arthritis, diabetes, heart failure, hypertension, chronic renal failure, Dementia, Neuropathy presented to the emergency room complaining of dark stool and generalized fatigue for few days. Patient had similar presentation during his prior admission and was recently discharged on 04/16/2021 after having an endoscopy which showed no acute bleeding. Patient has been on anticoagulation with Eliquis which was on hold during discharge. According to patient brother dose was recently increased to 5 mg twice a day few days ago and thereafter patient started having dark stools. Labs were drawn sometime yesterday patient was found to be anemic, He got a call from the [facility] and was encouraged to be taken to the hospital for possible blood transfusion. Upon arrival in the emergency room blood pressure was quite elevated with systolic of about 216 and diastolic of 119 mmHg. He was subsequently placed on nicardipine drip which was later tapered off. Work-up in the ER reveals a hemoglobin of 7.2 and hematocrit of 21.6. Potassium was slightly elevated at 5.4, also had elevated BUN and creatinine. Patient was admitted for GI bleed. Daily clinical course; 04/28/21: hold eliquis, cont to follow H/H, follow GI recommendation-plan for endoscopy tomorrow. will also consult cardiology to make recommendation for chronic anticoagulation use in the light of recurrent GI bleed. 04/29/21: Patient refused to take GoLYTELY last night. Did not have adequate prep for colonoscopy so GI canceled the procedure. Discussed with the brother at the bedside. Renal function is declining-patient placed on bicarbonate drip. We will transfer this patient to telemetry. Will start on clear liquid diet, if patient continues to have very poor p.o. intake will place on Dobbhoff tube. Continue to monitor BMP and H&H. Continue to hold Eliquis -as patient is no longer a anticoagulation candidate due to recurrent GI bleed and severe anemia per cardiology recommendation. Discussed with brother at the bedside. 04/30/12: Creatinine 3.4 today, potassium level improved. Patient remains lethargic with poor oral intake. Will place Dobbhoff tube with tube feeding. Continue D5 bicarbonate drip. Nephrology following, continue to monitor BMP. D iscussed with brother at the bedside and updated with full details. 05/01/21; patient initiated on tube feeding, creatinine 3.7 today. Continue bicarbonate drip and monitor H&H. Patient mental status has not improved. CT head did not show any acute process but has chronic micro angiopathy. Continue to hold anticoagulation. Per RN patient did have small blood stained bowel movement. Continue PPI and continue to monitor. 05/02/21: Creatinine level increasing. Renal prognosis is guarded. Patient also placed on high flow O2 overnight. Brother at the bedside, discussed with him with all clinical details. Patient is critically ill with very poor prognosis. Patient remains altered and stuporous. CT head showed no acute process but chronic microangiopathic changes. This is a 70-year-old male with multiple medical condition including atrial fibrillation underlying dementia CKD diabetes mellitus and acute GI bleed. Family wish to proceed with DNR CODE STATUS. Continue conservative medical management. We will get repeat chest x-ray, will monitor ins and outs, follow 2D echo result. Subjective Date of service: 05/02/21 Principal diagnosis: gi bleed Interval history: Patient seen and examined. Medical records and medication list reviewed. Patient placed on high flow O2 overnight Patient remains lethargic with very poor oral intake Objective - Exam Narrative Exam: GENERAL: well-developed elderly white male lying on bed appeared to be lethargic and stuporous. Open eyes with verbal command HEENT: Normocephalic. Atraumatic. No conjunctival congestion or icterus. Patient has moist mucous membranes. NECK: Supple. Trachea midline. CHEST/LUNGS: Clear to auscultated bilaterally, breathing nonlabored. No wheezes crackles or rhonchi. HEART/CARDIOVASCULAR: Regular in rate and rhythm. S1 and S2 positive. ABDOMEN: Abdomen is soft, nontender. Patient has normal bowel sounds. SKIN: There is no rash. Warm and dry. NEURO: No focal motor deficit. Follows verbal command. MUSCULOSKELETAL: No joint effusion or tenderness. EXTRIMITY: No edema, no cyanosis or clubbing. PSYCH: Patient is nonverbal and unable to assess. - Constitutional Vitals: Vital Signs - 12hr 05/02/21 05/02/21 05/02/21 05:29 05:39 05:41 Temperature 98.9 F Pulse Rate 86 95 H 93 H Respiratory 18 Rate Blood Pressure 148/82 147/93 O2 Sat by Pulse 100 100 Oximetry 05/02/21 05/02/21 05/02/21 09:52 12:52 14:06 Temperature Pulse Rate 97 H 96 H Respiratory 22 Rate Blood Pressure O2 Sat by Pulse 100 100 Oximetry - Labs CBC & Chem 7: 05/02/21 03:41 05/02/21 03:41 Labs: Abnormal lab results 04/27/21 05/01/21 05/01/21 Range/Units 19:46 13:15 16:44 RBC (3.65-5.03) M/mm3 Hgb (11.8-15.2) gm/dl Hct (35.5-45.6) % RDW (13.2-15.2) % Plt Count (140-440) K/mm3 Lymph % (Auto) (13.4-35.0) % [place] % (Auto) (0.0-7.3) % Lymph # (Auto) (1.2-5.4) K/mm3 [place] # (Auto) (0.0-0.8) K/mm3 Seg Neutrophils % (40.0-70.0) % Seg Neutrophils # (1.8-7.7) K/mm3 BUN (9-20) mg/dL Creatinine (0.8-1.3) mg/dL Glucose (75-100) mg/dL POC Glucose 279 H (70-105) mg/dL Calcium (8.4-10.2) mg/dL Crossmatch See Detail See Detail 05/01/21 05/01/21 05/02/21 Range/Units 19:40 22:41 03:41 RBC (3.65-5.03) M/mm3 Hgb (11.8-15.2) gm/dl Hct (35.5-45.6) % RDW (13.2-15.2) % Plt Count (140-440) K/mm3 Lymph % (Auto) (13.4-35.0) % [place] % (Auto) (0.0-7.3) % Lymph # (Auto) (1.2-5.4) K/mm3 [place] # (Auto) (0.0-0.8) K/mm3 Seg Neutrophils % (40.0-70.0) % Seg Neutrophils # (1.8-7.7) K/mm3 BUN 48 H (9-20) mg/dL Creatinine 4.0 H (0.8-1.3) mg/dL Glucose 291 H (75-100) mg/dL POC Glucose 231 H 240 H (70-105) mg/dL Calcium 7.3 L (8.4-10.2) mg/dL Crossmatch 05/02/21 05/02/21 05/02/21 Range/Units 03:41 06:13 08:19 RBC 2.45 L (3.65-5.03) M/mm3 Hgb 7.3 L (11.8-15.2) gm/dl Hct 21.7 L (35.5-45.6) % RDW 16.8 H (13.2-15.2) % Plt Count 118 L (140-440) K/mm3 Lymph % (Auto) 7.8 L (13.4-35.0) % [place] % (Auto) 9.6 H (0.0-7.3) % Lymph # (Auto) 0.7 L (1.2-5.4) K/mm3 [place] # (Auto) 0.9 H (0.0-0.8) K/mm3 Seg Neutrophils % 81.3 H (40.0-70.0) % Seg Neutrophils # 7.8 H (1.8-7.7) K/mm3 BUN (9-20) mg/dL Creatinine (0.8-1.3) mg/dL Glucose (75-100) mg/dL POC Glucose 314 H 311 H (70-105) mg/dL Calcium (8.4-10.2) mg/dL Crossmatch 05/02/21 Range/Units 11:53 RBC (3.65-5.03) M/mm3 Hgb (11.8-15.2) gm/dl Hct (35.5-45.6) % RDW (13.2-15.2) % Plt Count (140-440) K/mm3 Lymph % (Auto) (13.4-35.0) % [place] % (Auto) (0.0-7.3) % Lymph # (Auto) (1.2-5.4) K/mm3 [place] # (Auto) (0.0-0.8) K/mm3 Seg Neutrophils % (40.0-70.0) % Seg Neutrophils # (1.8-7.7) K/mm3 BUN (9-20) mg/dL Creatinine (0.8-1.3) mg/dL Glucose (75-100) mg/dL POC Glucose 350 H (70-105) mg/dL Calcium (8.4-10.2) mg/dL Crossmatch
--- NOTE | 2021-05-02 17:17 | XRay Report ---
CHEST 1 VIEW INDICATION / CLINICAL INFORMATION: sob. COMPARISON: None available. FINDINGS: SUPPORT DEVICES: Nasogastric tube HEART / MEDIASTINUM: No significant abnormality. LUNGS / PLEURA: Pleural-parenchymal disease in the left lung base No pneumothorax. ADDITIONAL FINDINGS: No significant additional findings. IMPRESSION: Pleural-parenchymal disease is present in the left lung base Signer Name: Jay Pisano MD FACR Signed: 05/02/2021 5:12 PM Workstation Name: [id number]
[2021-05-02] MEDS ORDERED: INSULIN LISPRO 100 UNIT/ML SUB-Q SCH (22:00)
[2021-05-02] MEDS: LANSOPRAZOLE 30 MG SOLUTAB FEEDTUBE SCH (22:11)
[2021-05-03] MEDS: ACETAMINOPHEN 325 MG TAB PO PRN (00:21)
[2021-05-03] MEDS ORDERED: SODIUM CHLORIDE 0.9% 250ML 250 ML IV ONE ×2 (04:40→06:23)
[2021-05-03 05:54] LABS: Hemoglobin 8.1 gm/dl (11.8-15.2); Mean Corpuscular HGB Conc 32 % (32-34); Mean Corpuscular Volume 94 fl (84-94); Platelet Count 160 K/mm3 (140-440); Red Blood Count 2.67 M/mm3 (3.65-5.03); Red Cell Distribution Width 18.1 % (13.2-15.2)
[2021-05-03 06:11] LABS: Calcium 7.2 mg/dL (8.4-10.2)
--- NOTE | 2021-05-03 07:31 | Progress Note ---
Assessment and Plan 1. Acute kidney injury: Likely vasomotor DAVID superimposed on CKD. ATN likely. Renal US negative for hydro. Continue IV fluids. Monitor renal function. Creatinine level increasing. Renal prognosis is guarded. Avoid nephrotoxic agents. Meds dosage based on GFR. Monitor for CRYSTAL GAZER needs. D/w patient's brother over the phone about declining kidney function and the possibility of hemodialysis. He want to d/w his family and decide tomorrow. 2. FEN: Hyperkalemia, improved, monitor. Metabolic acidosis, on bicarb drip, monitor. Monitor lytes and volume status. 3. GI bleed: Admitted with melena. Seen by GI. 4. Acute hypoxic respiratory failure: On HFNC O2. Followed by Pulmonary. 5. Encephalopathy, POA: Likely chronic. ?baseline. 6. Hypertensive urgency: Patient was on Cardene drip which was later weaned off. Monitor blood pressure closely. 7. Atrial fibrillation: Coreg. No anticoagulation in view of the GI bleed. Followed by Cards. 8. DM type 2. Subjective: Patient was seen and examined at the bedside. Sister at the bedside. D/w sister. Examination: General appearance: well-developed, appears stated age, on HFNC O2 HEENT: atraumatic, KEN Neck: trachea midline Respiratory: coarse breath sounds Heart: S1S2, no murmur Abdomen: soft, bowel sounds heard, NT Integumentary: L foot dressing, chronic changes noted Neurologic: stuporous, non-verbal, not following any command Ext: trace dependent edema, R BKA : Scott catheter Subjective Date of service: 05/03/21 Principal diagnosis: Ac. gastrointestinal bleed; Hypertensive emergency; A-Fib; DM II Objective - Vital Signs Vital signs: Vital Signs - 12hr 05/02/21 05/02/21 05/02/21 20:00 22:00 22:11 Temperature Pulse Rate 94 H 102 H Respiratory Rate Blood Pressure 141/50 O2 Sat by Pulse 99 99 Oximetry 05/02/21 05/02/21 05/03/21 23:40 23:54 02:38 Temperature 100.3 F H Pulse Rate Respiratory 12 Rate Blood Pressure 126/57 O2 Sat by Pulse 97 96 Oximetry 05/03/21 05/03/21 03:54 06:47 Temperature 97.1 F L 97.8 F Pulse Rate 104 H 102 H Respiratory 12 12 Rate Blood Pressure 86/41 150/98 O2 Sat by Pulse 96 94 Oximetry - Lab 05/03/21 05:26 05/03/21 05:26 Most recent lab results Calcium 7.2 mg/dL (8.4-10.2) L 05/03/21 05:26 Urine Creatinine 116.6 mg/dL (0.1-20.0) H 04/28/21 12:30 Urine Sodium 35 mmol/L 04/28/21 12:30 Medications & Allergies - Medications Allergies/Adverse Reactions: Allergies hydralazine Allergy (Verified 04/28/21 02:00) Vomiting isosorbide [From Imdur] Allergy (Verified 04/28/21 02:00) Unknown tramadol Allergy (Verified 04/28/21 02:00) Shortness of Breath Home Medications: Home Medications Medication Instructions Recorded Confirmed Last Taken Type Pantoprazole Sodium 40 mg PO BID #60 tablet. 04/16/21 04/28/21 04/26/21 21:00 Rx Acetaminophen/Diphenhydramine 2 each PO TID PRN 04/28/21 04/28/21 04/26/21 21:00 History [Tylenol Pm Ex-Strength Caplet] Apixaban [Eliquis] 5 mg PO BID 04/28/21 04/28/21 04/26/21 21:00 History AtorvaSTATin [Lipitor] 40 mg PO QHS 04/28/21 04/28/21 04/26/21 21:00 History B Complex W/Vitamin C [Allbee with 500 mg PO DAILY 04/28/21 04/28/21 04/26/21 09:00 History C] Ferrous Sulfate [Ferrous Sulfate 324 mg PO BID 04/28/21 04/28/21 04/26/21 21:00 History 324 MG] Insulin Glargine,Hum.rec.anlog 25 unit SQ HS PRN 04/28/21 04/28/21 04/26/21 21:00 History [Lantus Solostar] Novolin 70-30 Flexpen 4 units SUB-Q PRN PRN 04/28/21 04/28/21 04/25/21 02:10 History Sennosides Tab [Senokot] 8.6 mg PO DAILY 04/28/21 04/28/21 04/26/21 21:00 History Tamsulosin [Flomax] 0.4 mg PO QDAY 04/28/21 04/28/21 04/26/21 09:00 History carvediloL [Coreg] 6.25 mg PO BID 04/28/21 04/28/21 04/26/21 21:00 History lisinopriL [Zestril] 5 mg PO QDAY 04/28/21 04/28/21 04/26/21 09:00 History Active Medications: Generic Name Dose Route Start Last Admin Trade Name Freq PRN Reason Stop Dose Admin Acetaminophen 650 mg 05/01/21 20:45 05/03/21 00:21 Acetaminophen 325 Mg Tab PO 650 mg Q6H PRN Administration Pain, Mild (1-3) Lipase/Protease/Amylase 1 each 04/30/21 13:04 Lipase 10,500/Protease 25,000/Amylase 43,750 (Units) Dr Monreal FEEDTWEN PRN PRN For Clogged Feeding Tube Atorvastatin Calcium 40 mg 04/28/21 22:00 05/02/21 22:11 Atorvastatin 40 Mg Tab PO 40 mg QHS NATALIA Administration Carvedilol 3.125 mg 04/28/21 22:00 05/02/21 22:11 Carvedilol 3.125 Mg Tab PO 3.125 mg BID NATALIA Administration Clonidine HCl 0.2 mg 04/27/21 23:45 04/28/21 00:59 Clonidine Tts 0.2 Mg/24 Hr Patch TD 0.2 mg We NATALIA Administration Dextrose 50 ml 04/27/21 22:35 Dextrose 50% In Water (25gm) 50 Ml Syringe IV Q30MIN PRN Hypoglycemia Protocol Haloperidol Lactate 2 mg 04/30/21 20:59 04/30/21 21:09 Haloperidol Lactate 5 Mg/1 Ml Inj IM 2 mg Q12H PRN Administration Agitation Insulin Human Lispro 0 unit 04/28/21 07:30 05/02/21 22:10 Insulin Lispro 100 Unit/Ml SUB-Q 4 unit ACHS NATALIA Administration Protocol Insulin Human Lispro 5 unit 05/02/21 22:00 05/02/21 22:10 Insulin Lispro 100 Unit/Ml SUB-Q 5 unit QHS NATALIA Administration Lansoprazole 30 mg 05/02/21 22:00 05/02/21 22:11 Lansoprazole 30 Mg Solutab FEEDTUBE 30 mg BID NATALIA Administration Lorazepam 2 mg 04/30/21 20:58 04/30/21 21:09 Lorazepam 2 Mg/Ml Vial IV 2 mg Q12H PRN Administration Agitation Metoprolol Tartrate 5 mg 04/27/21 23:22 04/28/21 01:10 Metoprolol Tartrate 5 Mg/5 Ml Inj IV 5 mg Q6HR PRN Administration SBP>165, DBP>95 Morphine Sulfate 2 mg 04/29/21 12:59 04/29/21 20:48 Morphine 2 Mg/1 Ml Inj IV 2 mg Q3H PRN Administration Pain, Moderate (4-6) Ondansetron HCl 4 mg 04/27/21 22:35 Ondansetron 4 Mg/2 Ml Inj IV Q8H PRN Nausea And Vomiting Simple Syrup 15 ml 04/30/21 13:04 Simple Syrup 15 Ml FEEDTUBE PRN PRN Hypoglycemia Simple Syrup 30 ml 04/30/21 13:04 Simple Syrup 15 Ml FEEDTUBE PRN PRN Hypoglycemia Sodium Bicarbonate 325 mg 04/30/21 13:04 Sodium Bicarbonate 325 Mg Tab FEEDTUBE PRN PRN For Clogged Feeding Tube Sodium Chloride 10 ml 04/28/21 10:00 05/02/21 22:12 Sodium Chloride 0.9% 10 Ml Flush Syringe IV 10 ml BID NATALIA Administration Sodium Chloride 10 ml 04/27/21 22:35 Sodium Chloride 0.9% 10 Ml Flush Syringe IV PRN PRN LINE FLUSH Tamsulosin HCl 0.4 mg 04/29/21 10:00 05/02/21 11:27 Tamsulosin 0.4 Mg Cap PO 0.4 mg QDAY NATALIA Administration
--- NOTE | 2021-05-03 08:43 | Progress Note ---
Assessment and Plan Assessment and plan: --Acute metabolic encephalopathy Patient remains lethargic and stuporous Continue to acute renal failure CT head showed no acute infarction Patient also has history of underlying dementia --Acute hypoxic respiratory failure, not POA Placed on high flow O2 overnight Likely due to volume overload Order repeat chest x-ray, continue scheduled nebulizer breathing treatment Order for 2D echo -- Upper GI bleed Consult placed to presentation specialist for evaluation. Meanwhile patient has been started on proton pump inhibitor. Continue to hold anticoagulation and monitor H&H Patient could not complete the colonic prep for colonoscopy Conservative management recommended by GI --Anemia due to acute GI bleed, POA Continue to monitor H&H and transfuse as needed -- Acute on chronic renal failure 2.5>2.6>3.0>3.4>3.7 Likely due to vasomotor nephropathy versus ATN Consult placed to nephrology for evaluation. We will monitor BUN and creatinine. Continue IV fluid -- Hypertensive urgency, malignant Patient was on Cardene drip which was later tapered off. We will monitor blood pressure closely. Resumed his home medications --Hyperkalemia, continue bicarb drip for now, follow BMP -- Atrial fibrillation, chronic Rate currently controlled. We hold anticoagulation meanwhile in view of the GI bleed Consult cardiology and follow recommendation --Dementia, continue supportive care -- DVT prophylaxis Patient placed on sequential compression device. -- DNR: Discussed with the brother at the bedside today. family agreed for DNR and conservative medical management --Prognosis guarded Brief history: 70-year-old male with h/o atrial fib, arthritis, diabetes, heart failure, hypertension, chronic renal failure, Dementia, Neuropathy presented to the emergency room complaining of dark stool and generalized fatigue for few days. Patient had similar presentation during his prior admission and was recently discharged on 04/16/2021 after having an endoscopy which showed no acute bleeding. Patient has been on anticoagulation with Eliquis which was on hold during discharge. According to patient brother dose was recently increased to 5 mg twice a day few days ago and thereafter patient started having dark stools. Labs were drawn sometime yesterday patient was found to be anemic, He got a call from the [facility] and was encouraged to be taken to the hospital for possible blood transfusion. Upon arrival in the emergency room blood pressure was quite elevated with systolic of about 216 and diastolic of 119 mmHg. He was subsequently placed on nicardipine drip which was later tapered off. Work-up in the ER reveals a hemoglobin of 7.2 and hematocrit of 21.6. Potassium was slightly elevated at 5.4, also had elevated BUN and creatinine. Patient was admitted for GI bleed. Daily clinical course; 04/28/21: hold eliquis, cont to follow H/H, follow GI recommendation-plan for endoscopy tomorrow. will also consult cardiology to make recommendation for chronic anticoagulation use in the light of recurrent GI bleed. 04/29/21: Patient refused to take GoLYTELY last night. Did not have adequate prep for colonoscopy so GI canceled the procedure. Discussed with the brother at the bedside. Renal function is declining-patient placed on bicarbonate drip. We will transfer this patient to telemetry. Will start on clear liquid diet, if patient continues to have very poor p.o. intake will place on Dobbhoff tube. Continue to monitor BMP and H&H. Continue to hold Eliquis -as patient is no longer a anticoagulation candidate due to recurrent GI bleed and severe anemia per cardiology recommendation. Discussed with brother at the bedside. 04/30/12: Creatinine 3.4 today, potassium level improved. Patient remains lethargic with poor oral intake. Will place Dobbhoff tube with tube feeding. Continue D5 bicarbonate drip. Nephrology following, continue to monitor BMP. Discussed with brother at the bedside and updated with full details. 05/01/21; patient initiated on tube feeding, creatinine 3.7 today. Continue bicarbonate drip and monitor H&H. Patient mental status has not improved. CT head did not show any acute process but has chronic micro angiopathy. Continue to hold anticoagulation. Per RN patient did have small blood stained bowel movement. Continue PPI and continue to monitor. 05/02/21: Creatinine level increasing. Renal prognosis is guarded. Patient also placed on high flow O2 overnight. Brother at the bedside, discussed with him with all clinical details. Patient is critically ill with very poor prognosis. Patient remains altered and stuporous. CT head showed no acute process but chronic microangiopathic changes. This is a 70-year-old male with multiple medical condition including atrial fibrillation underlying dementia CKD diabetes mellitus and acute GI bleed. Family wish to proceed with DNR CODE STATUS. Continue conservative medical management. We will get repeat chest x-ray, will monitor ins and outs, follow 2D echo result. 05/03/2021; patient is on 40 L of high flow oxygen with FiO2 of 100%. Patient's prognosis is poor. Patient looks fluid overloaded and I give him a dose of [place]. If no improvement hospice care may be appropriate. History Interval history: Patient was seen and evaluated this morning Patient was on high flow oxygen 40L with Fio2 of 100% Patient was minimally responsive I have discussed the management plan with his sister Hospitalist Physical - Physical exam Narrative exam: Not in cardiopulmonary distress. The patient appeared well nourished and normally developed. Vital signs as documented. Head exam is unremarkable. No scleral icterus . Neck is without jugular venous distension, thyromegaly, or carotid bruits. Lungs rhonchi Cardiac exam reveals irregular rate and Rhythm. Abdominal exam reveals normal bowel sounds, nontender, no organomegaly. Extremities right BKA, left foot ulcer. BATH MIXER: Alert and oriented 3. No focal weakness. - Constitutional Vitals: Temp Pulse Resp BP Pulse Ox 97.8 F 102 H 12 150/98 94 05/03/21 06:47 05/03/21 06:47 05/03/21 06:47 05/03/21 06:47 05/03/21 07:58 General appearance: Present: no acute distress Results - Labs CBC & Chem 7: 05/03/21 05:26 05/03/21 05:26 Labs: Laboratory Last Values WBC 12.7 K/mm3 (4.5-11.0) H 05/03/21 05:26 RBC 2.67 M/mm3 (3.65-5.03) L 05/03/21 05:26 Hgb 8.1 gm/dl (11.8-15.2) L 05/03/21 05:26 Hct 25.0 % (35.5-45.6) L 05/03/21 05:26 MCV 94 fl (84-94) 05/03/21 05:26 MCH 30 pg (28-32) 05/03/21 05:26 MCHC 32 % (32-34) 05/03/21 05:26 RDW 18.1 % (13.2-15.2) H 05/03/21 05:26 Plt Count 160 K/mm3 (140-440) 05/03/21 05:26 Lymph % (Auto) Chip Unloader 05/03/21 05:26 [place] % (Auto) Chip Unloader 05/03/21 05:26 Eos % (Auto) Chip Unloader 05/03/21 05:26 Baso % (Auto) Chip Unloader 05/03/21 05:26 Lymph # (Auto) Chip Unloader 05/03/21 05:26 [place] # (Auto) Chip Unloader 05/03/21 05:26 Eos # (Auto) Chip Unloader 05/03/21 05:26 Baso # (Auto) Chip Unloader 05/03/21 05:26 Seg Neutrophils % Chip Unloader 05/03/21 05:26 Seg Neutrophils # Chip Unloader 05/03/21 05:26 PT 22.4 Sec. (12.2-14.9) H 04/28/21 06:53 INR 1.92 (0.87-1.13) H 04/28/21 06:53 APTT 48.5 Sec. (24.2-36.6) H 04/27/21 19:46 Sodium 139 mmol/L (137-145) 05/03/21 05:26 Potassium 4.9 mmol/L (3.6-5.0) 05/03/21 05:26 Chloride 98.3 mmol/L (98-107) 05/03/21 05:26 Carbon Dioxide 26 mmol/L (22-30) 05/03/21 05:26 Anion Gap 20 mmol/L 05/03/21 05:26 BUN 56 mg/dL (9-20) H 05/03/21 05:26 Creatinine 4.7 mg/dL (0.8-1.3) H 05/03/21 05:26 Estimated GFR 12 ml/min 05/03/21 05:26 BUN/Creatinine Ratio 12 % 05/03/21 05:26 Glucose 338 mg/dL (75-100) H 05/03/21 05:26 POC Glucose 297 mg/dL (70-105) H 05/02/21 20:10 Lactic Acid 1.50 mmol/L (0.7-2.0) 04/27/21 19:46 Calcium 7.2 mg/dL (8.4-10.2) L 05/03/21 05:26 Total Bilirubin 0.50 mg/dL (0.1-1.2) 04/27/21 19:31 AST 11 units/L (5-40) 04/27/21 19:31 ALT 10 units/L (7-56) 04/27/21 19:31 Alkaline Phosphatase 81 units/L (35-129) 04/27/21 19:31 Total Protein 6.2 g/dL (6.3-8.2) L 04/27/21 19:31 Albumin 2.4 g/dL (3.9-5) L 04/27/21 19:31 Albumin/Globulin Ratio 0.6 % 04/27/21 19:31 Urine Color Rosemary (Yellow) 04/28/21 12:30 Urine Turbidity Cloudy (Clear) 04/28/21 12:30 Urine pH 5.0 (5.0-7.0) 04/28/21 12:30 Ur Specific [place] 1.015 (1.003-1.030) 04/28/21 12:30 Urine Protein >500 mg/dL (Negative) 04/28/21 12:30 Urine Glucose (UA) 50 mg/dL (Negative) 04/28/21 12:30 Urine Ketones Neg mg/dL (Negative) 04/28/21 12:30 Urine Blood Lg (Negative) 04/28/21 12:30 Urine Nitrite Neg (Negative) 04/28/21 12:30 Urine Bilirubin Neg (Negative) 04/28/21 12:30 Urine Urobilinogen < 2.0 mg/dL (<2.0) 04/28/21 12:30 Ur Leukocyte Esterase Neg (Negative) 04/28/21 12:30 Urine WBC (Auto) 13.0 /HPF (0.0-6.0) H 04/28/21 12:30 Urine RBC (Auto) > 182.0 /HPF (0.0-6.0) 04/28/21 12:30 U Epithel Cells (Auto) 2.0 /HPF (0-13.0) 04/28/21 12:30 Urine Bacteria (Auto) 4+ /HPF (Negative) 04/28/21 12:30 Urine Mucus Few /HPF 04/28/21 12:30 Urine Yeast (Budding) 2+ /HPF 04/28/21 12:30 Urine Creatinine 116.6 mg/dL (0.1-20.0) H 04/28/21 12:30 Urine Sodium 35 mmol/L 04/28/21 12:30 Nasal Screen MRSA (PCR) Negative (Negative) 04/28/21 Unknown Blood Type A POSITIVE 05/01/21 13:15 Antibody Screen Negative 05/01/21 13:15 Crossmatch See Detail 05/01/21 13:15 Scott/IV: Voiding Method Indwelling Catheter Active Medications - Current Medications Current Medications: Generic Name Dose Route Start Last Admin Trade Name Freq PRN Reason Stop Dose Admin Acetaminophen 650 mg 05/01/21 20:45 05/03/21 00:21 Acetaminophen 325 Mg Tab PO 650 mg Q6H PRN Administration Pain, Mild (1-3) Lipase/Protease/Amylase 1 each 04/30/21 13:04 Lipase 10,500/Protease 25,000/Amylase 43,750 (Units) Dr Monreal FEEDTUBE PRN PRN For Clogged Feeding Tube Atorvastatin Calcium 40 mg 04/28/21 22:00 05/02/21 22:11 Atorvastatin 40 Mg Tab PO 40 mg QHS NATALIA Administration Carvedilol 3.125 mg 04/28/21 22:00 05/02/21 22:11 Carvedilol 3.125 Mg Tab PO 3.125 mg BID NATALIA Administration Clonidine HCl 0.2 mg 04/27/21 23:45 04/28/21 00:59 Clonidine Tts 0.2 Mg/24 Hr Patch TD 0.2 mg We NATALIA Administration Dextrose 50 ml 04/27/21 22:35 Dextrose 50% In Water (25gm) 50 Ml Syringe IV Q30MIN PRN Hypoglycemia Protocol Haloperidol Lactate 2 mg 04/30/21 20:59 04/30/21 21:09 Haloperidol Lactate 5 Mg/1 Ml Inj IM 2 mg Q12H PRN Administration Agitation Insulin Human Lispro 0 unit 04/28/21 07:30 05/02/21 22:10 Insulin Lispro 100 Unit/Ml SUB-Q 4 unit ACHS NATALIA Administration Protocol Insulin Human Lispro 5 unit 05/02/21 22:00 05/02/21 22:10 Insulin Lispro 100 Unit/Ml SUB-Q 5 unit QHS NATALIA Administration Lansoprazole 30 mg 05/02/21 22:00 05/02/21 22:11 Lansoprazole 30 Mg Solutab FEEDTUBE 30 mg BID NATALIA Administration Lorazepam 2 mg 04/30/21 20:58 04/30/21 21:09 Lorazepam 2 Mg/Ml Vial IV 2 mg Q12H PRN Administration Agitation Metoprolol Tartrate 5 mg 04/27/21 23:22 04/28/21 01:10 Metoprolol Tartrate 5 Mg/5 Ml Inj IV 5 mg Q6HR PRN Administration SBP>165, DBP>95 Morphine Sulfate 2 mg 04/29/21 12:59 04/29/21 20:48 Morphine 2 Mg/1 Ml Inj IV 2 mg Q3H PRN Administration Pain, Moderate (4-6) Ondansetron HCl 4 mg 04/27/21 22:35 Ondansetron 4 Mg/2 Ml Inj IV Q8H PRN Nausea And Vomiting Simple Syrup 15 ml 04/30/21 13:04 Simple Syrup 15 Ml FEEDTUBE PRN PRN Hypoglycemia Simple Syrup 30 ml 04/30/21 13:04 Simple Syrup 15 Ml FEEDTUBE PRN PRN Hypoglycemia Sodium Bicarbonate 325 mg 04/30/21 13:04 Sodium Bicarbonate 325 Mg Tab FEEDTUBE PRN PRN For Clogged Feeding Tube Sodium Chloride 10 ml 04/28/21 10:00 05/02/21 22:12 Sodium Chloride 0.9% 10 Ml Flush Syringe IV 10 ml BID NATALIA Administration Sodium Chloride 10 ml 04/27/21 22:35 Sodium Chloride 0.9% 10 Ml Flush Syringe IV PRN PRN LINE FLUSH Tamsulosin HCl 0.4 mg 04/29/21 10:00 05/02/21 11:27 Tamsulosin 0.4 Mg Cap PO 0.4 mg QDAY NATALIA Administration Nutrition/Malnutrition Assess - Dietary Evaluation Nutrition/Malnutrition Findings: Nutrition Notes Start: 04/28/21 11:48 Freq: Status: Active Protocol: Document 05/02/21 13:04 (Rec: 05/02/21 13:07 [email or web address]) Nutrition Notes Initial or Follow up Reassessment Current Diagnosis Acute Kidney Injury,CKD(stage I-IV),Diabetes,Hypertension, Heart Failure Other Pertinent Diagnosis L heal wound, GIB Current Diet Renal diet Labs/Tests BUN 48 Cr 4 BG 291 Pertinent Medications Reviewed Height 5 ft 10 in Weight 82.9 kg [place] Body Weight (kg) 75.45 BMI 26.2 Weight Status Appropriate Subjective/Other Information FU for TF tolerance. Pt tolerating at goal rate. Percent of energy/protein needs met: 91%/76% Burn Absent Trauma Absent GI Symptoms None Current % PO Negligible Minimum of two criteria No Fluid Accumulation Mild (non-severe) #2 Nutrition Diagnosis Increased nutrient needs ( specify in comment below) Diagnosis Progress(for reassessment Continues documentation) #1 Nutrition Diagnosis Inadequate energy intake Diagnosis Progress(for reassessment Continues documentation) Is patient on ventilator? No Is Patient Ambulatory and/or Out of Bed No REE-([facility]-confined to bed) 1908.216 Calculation Used for Recommendations [facility] Additional Notes Protein: 102 - 123g (1.25 - 1. 5g/kgBW) Fluid: 1 ml/kcal or per MD Nutrition Intervention Change Diet Order: Continue Nutrition Support: Nepro at 40 ml/hr with a free water flush of 175 ml/hr Kcal 1,728 Protein (gm) 78 Fluid (mL) 698 Goal #1 Meet at least 75% of EER via TF Goal #2 TF tolerance Goal #3 Wound healing Anticipated Discharge Needs: Unable to determine at this time Follow-Up By: 05/04/21 Additional Comments FU for TF tolerance
[2021-05-03] MEDS: INSULIN LISPRO 100 UNIT/ML SUB-Q SCH ×2 (08:49→12:27)
[2021-05-03] MEDS: TAMSULOSIN 0.4 MG CAP PO SCH (09:00)
[2021-05-03] MEDS: carvediloL 3.125 MG TAB PO SCH (09:00)
[2021-05-03] MEDS: LANSOPRAZOLE 30 MG SOLUTAB FEEDTUBE SCH (09:00)
--- NOTE | 2021-05-03 11:01 | Progress Note ---
Assessment and Plan Atrial fibrillation, persists Eliquis discontinued due to severe anemia and GI bleed Records reports he receives his usual care at the [place]. Murmur Anemia/GI bleed s/p transfusion of PRBCs Acue kidney injury PAD s/p right BKA Hypertension Underlying dementia Diabetes, uncontrolled Echocardiogram report is pending. Recommendations: Continue rate controlling agents for chronic atrial fibrillation. Patient is considered no longer a candidate for AC due to severe anemia and GI bleed. Subjective Date of service: 05/03/21 Principal diagnosis: Ac. gastrointestinal bleed; Hypertensive emergency; A-Fib; DM II Interval history: On high flow oxygen. No distress noted. Atrial fibrillation with a well controlled ventricular rate on telemetry. Objective Vital Signs Temp Pulse Resp BP Pulse Ox 05/03/21 09:00 100 H 150/98 05/03/21 07:58 94 05/03/21 06:47 97.8 F 102 H 12 150/98 94 05/03/21 03:54 97.1 F L 104 H 12 86/41 96 05/03/21 02:38 96 05/02/21 23:54 97 05/02/21 23:40 100.3 F H 12 126/57 05/02/21 22:11 102 H 141/50 05/02/21 22:00 94 H 99 05/02/21 20:00 99 05/02/21 19:22 99.1 F 102 H 18 141/50 99 05/02/21 14:06 100 05/02/21 12:52 96 H 05/02/21 11:27 102 H 98 05/02/21 11:18 103 H 99 05/02/21 11:16 99 H 100 05/02/21 11:03 109 H 99 05/02/21 11:02 102 H 97 - Physical Examination General: No Apparent Distress HEENT: Positive: PERRL, Normocephaly Neck: Positive: trachea midline Cardiac: Positive: irregularly irregular, Systolic Murmur Lungs: Positive: Decreased Breath Sounds Extremities: Present: Other (right BKA) - Labs and Meds CBC 05/03/21 Range/Units 05:26 WBC 12.7 H (4.5-11.0) K/mm3 RBC 2.67 L (3.65-5.03) M/mm3 Hgb 8.1 L (11.8-15.2) gm/dl Hct 25.0 L (35.5-45.6) % Plt Count 160 (140-440) K/mm3 Lymph # (Auto) Flooring Machine Feeder [place] # (Auto) Flooring Machine Feeder Eos # (Auto) Flooring Machine Feeder Baso # (Auto) Flooring Machine Feeder Comprehensive Metabolic Panel 05/03/21 Range/Units 05:26 Sodium 139 (137-145) mmol/L Potassium 4.9 (3.6-5.0) mmol/L Chloride 98.3 (98-107) mmol/L Carbon Dioxide 26 (22-30) mmol/L BUN 56 H (9-20) mg/dL Creatinine 4.7 H (0.8-1.3) mg/dL Glucose 338 H (75-100) mg/dL Calcium 7.2 L (8.4-10.2) mg/dL - Allied health notes Allied health notes reviewed: nursing
--- NOTE | 2021-05-03 11:19 | Progress Note ---
Subjective - Reason for Consult Consult date: 05/03/21 Reason for consult: MHE Requesting physician: FIORELLA MEDRANO - Chief Complaint Chief complaint: Psych Progress Attempt to evaluated pt, still on nasal cannula, obtunded and sleeping heavily. nursing not reviewed, issues mostly medical and I will sign off REVIEW OF SYSTEMS ROS cannot be reliably obtained from the patient due to somnolence. MENTAL STATUS EXAMINATION Pt sleepin on CPAP machine. Diagnoses: Behavioral concern another Treatment Plan Primarily a medical issue due to comorbid and history provied by brother. Recommend olazanpine 2.5 mg PRN for intermittent confusion/delirium. MEDICATIONS: Risks, benefits and alternatives of medications discussed with the patient, questions answered and consent obtained from patient. PSYCHOTHERAPY: Supportive psychotherapy provided MEDICAL: Per primary team DELIRIUM PRECAUTIONS: Please re-orient patient frequently, keep lights on during the day, and minimize benzodiazepines and opiates as these medications could worsen patient's confusion. ROLL ON WORKER: DISPOSITION: Do Not Recommend acute inpatient psychiatric hospitalization at this time. Case discussed with Dr. Rayo who agrees with current disposition FOLLOW-UP: Will sign off Thank you for the consult. Please contact with any questions and/or concerns. Mental Status Exam - Vital signs Last Vital Signs Temp 97.8 F 05/03/21 06:47 Pulse 100 H 05/03/21 09:00 Resp 12 05/03/21 06:47 BP 150/98 05/03/21 09:00 Pulse Ox 94 05/03/21 07:58
--- NOTE | 2021-05-03 12:18 | Progress Note ---
Assessment and Plan - Patient Problems (1) Acute on chronic renal failure Status: Acute Qualifiers: Acute renal failure type: unspecified Chronic kidney disease stage: unspecified stage Qualified Code(s): N17.9 - Acute kidney failure, unspecified; N18.9 - Chronic kidney disease, unspecified (2) Anemia Status: Acute Qualifiers: Anemia type: unspecified type Qualified Code(s): D64.9 - Anemia, unspecified (3) Upper GI bleed Status: Acute (4) Chronic atrial fibrillation Status: Acute (5) Hyperkalemia Status: Acute (6) Hypertensive urgency, malignant Status: Acute (7) Atrial fibrillation Status: Acute Qualifiers: Atrial fibrillation type: unspecified Qualified Code(s): I48.91 - Unspecified atrial fibrillation Subjective Date of service: 05/03/21 Principal diagnosis: Ac. gastrointestinal bleed; Hypertensive emergency; A-Fib; DM II Interval history: Cancel the progress note. Patient not seen by me to day. Objective Vital Signs - 12hr 05/03/21 05/03/21 05/03/21 02:38 03:54 06:47 Temperature 97.1 F L 97.8 F Pulse Rate 104 H 102 H Respiratory 12 12 Rate Blood Pressure 86/41 150/98 O2 Sat by Pulse 96 96 94 Oximetry 05/03/21 05/03/21 05/03/21 07:58 09:00 10:00 Temperature Pulse Rate 100 H Respiratory 24 Rate Blood Pressure 150/98 O2 Sat by Pulse 94 100 Oximetry Constitutional: no acute distress Eyes: non-icteric ENT: oropharynx moist Neck: supple, lymphadenopathy, no JVD Effort: mildly labored Ascultation: Bilateral: diminished breath sounds, rhonchi Percussion: Bilateral: not dull Cardiovascular: regular rate and rhythm Gastrointestinal: normoactive bowel sounds, soft, non-tender, non-distended (protuberant) Integumentary: rash Extremities: pink and warm, no ischemia or petechiae, other (right BKA) Neurologic: pupils equal and round, CN II-XII normal, other (chronic encephalopathy) Psychiatric: anxious CBC and BMP: 05/03/21 05:26 05/03/21 05:26 ABG, PT/INR, D-dimer: PT/INR, D-dimer PT 22.4 Sec. (12.2-14.9) H 04/28/21 06:53 INR 1.92 (0.87-1.13) H 04/28/21 06:53 Abnormal lab findings: Abnormal Labs 04/27/21 04/27/21 04/27/21 19:31 19:46 19:46 WBC RBC 2.45 L Hgb 7.2 L Hct 21.6 L MCHC RDW 17.1 H Plt Count Lymph % (Auto) [place] % (Auto) 8.4 H Eos % (Auto) Lymph # (Auto) 0.[address] [place] # (Auto) Seg Neutrophils % 72.4 H Seg Neutrophils # PT 22.3 H INR 1.91 H APTT 48.5 H Potassium 5.4 H Chloride Carbon Dioxide 21 L BUN 36 H Creatinine 2.5 H Glucose 166 H POC Glucose Calcium 7.9 L Total Protein 6.2 L Albumin 2.4 L Urine WBC (Auto) Urine Creatinine Crossmatch 04/27/21 04/28/21 04/28/21 19:46 06:53 06:53 WBC RBC 2.93 L Hgb 8.4 L Hct 25.3 L MCHC RDW 16.3 H Plt Count Lymph % (Auto) [place] % (Auto) 10.1 H Eos % (Auto) Lymph # (Auto) 1.[address] [place] # (Auto) Seg Neutrophils % 70.8 H Seg Neutrophils # PT 22.4 H INR 1.92 H APTT Potassium Chloride Carbon Dioxide BUN Creatinine Glucose POC Glucose Calcium Total Protein Albumin Urine WBC (Auto) Urine Creatinine Crossmatch See Detail 04/28/21 04/28/21 04/28/21 06:53 07:42 11:49 WBC RBC Hgb Hct MCHC RDW Plt Count Lymph % (Auto) [place] % (Auto) Eos % (Auto) Lymph # (Auto) [place] # (Auto) Seg Neutrophils % Seg Neutrophils # PT INR APTT Potassium Chloride 108.0 H Carbon Dioxide 20 L BUN 35 H Creatinine 2.6 H Glucose 164 H POC Glucose 158 H 149 H Calcium 7.2 L Total Protein Albumin Urine WBC (Auto) Urine Creatinine Crossmatch 04/28/21 04/28/21 04/28/21 12:30 12:30 16:42 WBC RBC Hgb Hct MCHC RDW Plt Count Lymph % (Auto) [place] % (Auto) Eos % (Auto) Lymph # (Auto) [place] # (Auto) Seg Neutrophils % Seg Neutrophils # PT INR APTT Potassium Chloride Carbon Dioxide BUN Creatinine Glucose POC Glucose 157 H Calcium Total Protein Albumin Urine WBC (Auto) 13.0 H Urine Creatinine 116.6 H Crossmatch 04/28/21 04/29/21 04/29/21 21:10 07:00 07:00 WBC RBC 2.66 L Hgb 7.9 L Hct 23.3 L MCHC RDW 16.7 H Plt Count Lymph % (Auto) 11.[address] [place] % (Auto) 9.4 H Eos % (Auto) Lymph # (Auto) 0.[address] [place] # (Auto) Seg Neutrophils % 76.0 H Seg Neutrophils # PT INR APTT Potassium 5.1 H Chloride 108.3 H Carbon Dioxide 18 L BUN 42 H Creatinine 3.0 H Glucose 172 H POC Glucose 144 H Calcium 8.0 L Total Protein Albumin Urine WBC (Auto) Urine Creatinine Crossmatch 04/29/21 04/29/21 04/29/21 07:37 11:27 16:37 WBC RBC Hgb Hct MCHC RDW Plt Count Lymph % (Auto) [place] % (Auto) Eos % (Auto) Lymph # (Auto) [place] # (Auto) Seg Neutrophils % Seg Neutrophils # PT INR APTT Potassium Chloride Carbon Dioxide BUN Creatinine Glucose POC Glucose 163 H 153 H 132 H Calcium Total Protein Albumin Urine WBC (Auto) Urine Creatinine Crossmatch 04/29/21 04/30/21 04/30/21 20:19 04:29 07:51 WBC RBC Hgb Hct MCHC RDW Plt Count Lymph % (Auto) [place] % (Auto) Eos % (Auto) Lymph # (Auto) [place] # (Auto) Seg Neutrophils % Seg Neutrophils # PT INR APTT Potassium Chloride Carbon Dioxide 21 L BUN 42 H Creatinine 3.4 H Glucose 165 H POC Glucose 162 H 153 H Calcium 7.7 L Total Protein Albumin Urine WBC (Auto) Urine Creatinine Crossmatch 04/30/21 04/30/21 04/30/21 11:47 17:23 20:14 WBC RBC Hgb Hct MCHC RDW Plt Count Lymph % (Auto) [place] % (Auto) Eos % (Auto) Lymph # (Auto) [place] # (Auto) Seg Neutrophils % Seg Neutrophils # PT INR APTT Potassium Chloride Carbon Dioxide BUN Creatinine Glucose POC Glucose 155 H 183 H 210 H Calcium Total Protein Albumin Urine WBC (Auto) Urine Creatinine Crossmatch 05/01/21 05/01/21 05/01/21 04:31 04:31 11:34 WBC RBC 2.32 L Hgb 7.0 L Hct 20.3 L MCHC 35 H RDW 16.9 H Plt Count Lymph % (Auto) 10.[address] [place] % (Auto) 10.7 H Eos % (Auto) 4.4 H Lymph # (Auto) 0.[address] [place] # (Auto) Seg Neutrophils % 73.8 H Seg Neutrophils # PT INR APTT Potassium Chloride Carbon Dioxide BUN 43 H Creatinine 3.7 H Glucose 232 H POC Glucose 256 H Calcium 7.5 L Total Protein Albumin Urine WBC (Auto) Urine Creatinine Crossmatch 05/01/21 05/01/21 05/01/21 13:15 16:44 19:40 WBC RBC Hgb Hct MCHC RDW Plt Count Lymph % (Auto) [place] % (Auto) Eos % (Auto) Lymph # (Auto) [place] # (Auto) Seg Neutrophils % Seg Neutrophils # PT INR APTT Potassium Chloride Carbon Dioxide BUN Creatinine Glucose POC Glucose 279 H 231 H Calcium Total Protein Albumin Urine WBC (Auto) Urine Creatinine Crossmatch See Detail 05/01/21 05/02/21 05/02/21 22:41 03:41 03:41 WBC RBC 2.45 L Hgb 7.3 L Hct 21.7 L MCHC RDW 16.8 H Plt Count 118 L Lymph % (Auto) 7.[address] [place] % (Auto) 9.6 H Eos % (Auto) Lymph # (Auto) 0.[address] [place] # (Auto) 0.9 H Seg Neutrophils % 81.3 H Seg Neutrophils # 7.8 H PT INR APTT Potassium Chloride Carbon Dioxide BUN 48 H Creatinine 4.0 H Glucose 291 H POC Glucose 240 H Calcium 7.3 L Total Protein Albumin Urine WBC (Auto) Urine Creatinine Crossmatch 05/02/21 05/02/21 05/02/21 06:13 08:19 11:53 WBC RBC Hgb Hct MCHC RDW Plt Count Lymph % (Auto) [place] % (Auto) Eos % (Auto) Lymph # (Auto) [place] # (Auto) Seg Neutrophils % Seg Neutrophils # PT INR APTT Potassium Chloride Carbon Dioxide BUN Creatinine Glucose POC Glucose 314 H 311 H 350 H Calcium Total Protein Albumin Urine WBC (Auto) Urine Creatinine Crossmatch 05/02/21 05/02/21 05/03/21 17:10 20:10 05:26 WBC RBC Hgb Hct MCHC RDW Plt Count Lymph % (Auto) [place] % (Auto) Eos % (Auto) Lymph # (Auto) [place] # (Auto) Seg Neutrophils % Seg Neutrophils # PT INR APTT Potassium Chloride Carbon Dioxide BUN 56 H Creatinine 4.7 H Glucose 338 H POC Glucose 350 H 297 H Calcium 7.2 L Total Protein Albumin Urine WBC (Auto) Urine Creatinine Crossmatch 05/03/21 05/03/21 05/03/21 05:26 07:20 11:20 WBC 12.7 H RBC 2.67 L Hgb 8.1 L Hct 25.0 L MCHC RDW 18.1 H Plt Count Lymph % (Auto) [place] % (Auto) Eos % (Auto) Lymph # (Auto) [place] # (Auto) Seg Neutrophils % Seg Neutrophils # PT INR APTT Potassium Chloride Carbon Dioxide BUN Creatinine Glucose POC Glucose 355 H 379 H Calcium Total Protein Albumin Urine WBC (Auto) Urine Creatinine Crossmatch Allied health notes reviewed: nursing
[2021-05-03] MEDS ORDERED: FUROSEMIDE 40 MG/4 ML INJ IV ONE (12:19)
[2021-05-03] MEDS ORDERED: FUROSEMIDE 20 MG/2 ML INJ IV ONE (12:30)
[2021-05-03 12:34] VITALS: BP 131/45
[2021-05-03] MEDS: LORazepam 2 MG/ML VIAL IV PRN (14:27)
--- NOTE | 2021-05-04 07:06 | Discharge Summary ---
Providers - Providers Date of Admission: 04/27/21 22:36 Date of discharge: 05/03/21 Attending physician: SHAYNA CORREA MD 04/27/21 21:52 Consult to Physician [CONS] Routine Comment: Dr. Hagan spoke with Dr. Rice @ [id number] Consulting Provider: YUMI RICE Physician Instructions: Reason For Exam: MELENA 04/27/21 22:35 Consult to Physician [CONS] Routine Comment: Spoke with A.S. @ [id number] Consulting Provider: ROB MERRILL Physician Instructions: Reason For Exam: GI bleed, Hypertensive urgency 04/27/21 22:36 Consult to Dietitian/Nutrition [CONS] Routine Physician Instructions: Reason For Exam: Reason for Consult: Diet education 04/28/21 07:18 Consult to Wound/ET Nurse [CONS] Routine Reason For Exam: L HEEL WOUND 04/28/21 08:00 Consult to Dietitian/Nutrition [CONS] Routine Physician Instructions: Reason For Exam: Reason for Consult: Pt needs oral supplement 04/28/21 09:11 Consult to Physician [CONS] Routine Comment: Consulting Provider: LETITIA LEE Physician Instructions: Reason For Exam: jayla 04/28/21 16:54 Consult to Physician [CONS] Routine Comment: Consulting Provider: BLAZE RAMIREZ Physician Instructions: Reason For Exam: atrial fib with CHF 04/30/21 09:43 Consult to Dietitian/Nutrition [CONS] Routine Physician Instructions: Reason For Exam: Reason for Consult: Write/Manage Tube Feeding 04/30/21 21:32 Consult to Mental Health [CONS] Routine Reason For Exam: agitation, hx. dementia Primary care physician: [facility] Hospitalization Reason for admission: Acute hypoxic respiratory failureAcute metabolic encephalopathy Condition: Critical Disposition: DC-20 Core Measure Documentation - Palliative Care Palliative Care/ Comfort Measures: Not Applicable Exam - Constitutional Vitals: Temp Pulse Resp BP Pulse Ox 97.8 F 77 24 131/45 100 05/03/21 06:47 05/03/21 12:20 05/03/21 10:00 05/03/21 12:20 05/03/21 10:00 Plan Follow up with: PRIMARY CARE, [Primary Care Provider] - 3-5 Days Forms: Accompanied Note
--- NOTE | 2021-05-04 12:52 | Death Summary ---
Summary - Providers Date of service: 05/03/21 Consults: 04/27/21 21:52 Consult to Physician [CONS] Routine Comment: Dr. Hagan spoke with Dr. Rice @ [phone] Consulting Provider: YUMI RICE Physician Instructions: Reason For Exam: MELENA 04/27/21 22:35 Consult to Physician [CONS] Routine Comment: Spoke with A.S. @ [id number] Consulting Provider: ROB MERRILL Physician Instructions: Reason For Exam: GI bleed, Hypertensive urgency 04/27/21 22:36 Consult to Dietitian/Nutrition [CONS] Routine Physician Instructions: Reason For Exam: Reason for Consult: Diet education 04/28/21 07:18 Consult to Wound/ET Nurse [CONS] Routine Reason For Exam: L HEEL WOUND 04/28/21 08:00 Consult to Dietitian/Nutrition [CONS] Routine Physician Instructions: Reason For Exam: Reason for Consult: Pt needs oral supplement 04/28/21 09:11 Consult to Physician [CONS] Routine Comment: Consulting Provider: LETITIA LEE Physician Instructions: Reason For Exam: jayla 04/28/21 16:54 Consult to Physician [CONS] Routine Comment: Consulting Provider: BLAZE RAMIREZ Physician Instructions: Reason For Exam: atrial fib with CHF 04/30/21 09:43 Consult to Dietitian/Nutrition [CONS] Routine Physician Instructions: Reason For Exam: Reason for Consult: Write/Manage Tube Feeding 04/30/21 21:32 Consult to Mental Health [CONS] Routine Reason For Exam: agitation, hx. dementia Attending: SHAYNA CORREA MD - summary Date of admission: 04/27/21 22:36 Date of : 05/03/21 Reason for admission: Acute hypoxic respiratory failureAcute metabolic encephalopathy Significant findings: Brief history: 70-year-old male with h/o atrial fib, arthritis, diabetes, heart failure, hypertension, chronic renal failure, Dementia, Neuropathy presented to the emergency room complaining of dark stool and generalized fatigue for few days. Patient had similar presentation during his prior admission and was recently discharged on 04/16/2021 after having an endoscopy which showed no acute bleeding. Patient has been on anticoagulation with Eliquis which was on hold during discharge. According to patient brother dose was recently increased to 5 mg twice a day few days ago and thereafter patient started having dark stools. Labs were drawn sometime yesterday patient was found to be anemic, He got a call from the [facility] and was encouraged to be taken to the hospital for possible blood transfusion. Upon arrival in the emergency room blood pressure was quite elevated with systolic of about 216 and diastolic of 119 mmHg. He was subsequently placed on nicardipine drip which was later tapered off. Work-up in the ER reveals a hemoglobin of 7.2 and hematocrit of 21.6. Potassium was slightly elevated at 5.4, also had elevated BUN and creatinine. Patient was admitted for GI bleed. --Acute metabolic encephalopathy Patient remains lethargic and stuporous Continue to acute renal failure CT head showed no acute infarction Patient also has history of underlying dementia --Acute hypoxic respiratory failure, not POA Placed on high flow O2 overnight Likely due to volume overload Order repeat chest x-ray, continue scheduled nebulizer breathing treatment Order for 2D echo -- Upper GI bleed Consult placed to glue bone drier for evaluation. Meanwhile patient has been started on proton pump inhibitor. Continue to hold anticoagulation and monitor H&H Patient could not complete the colonic prep for colonoscopy Conservative management recommended by GI --Anemia due to acute GI bleed, POA Continue to monitor H&H and transfuse as needed -- Acute on chronic renal failure 2.5>2.6>3.0>3.4>3.7 Likely due to vasomotor nephropathy versus ATN Consult placed to nephrology for evaluation. We will monitor BUN and creatinine. Continue IV fluid -- Hypertensive urgency, malignant Patient was on Cardene drip which was later tapered off. We will monitor blood pressure closely. Resumed his home medications --Hyperkalemia, continue bicarb drip for now, follow BMP -- Atrial fibrillation, chronic Rate currently controlled. We hold anticoagulation meanwhile in view of the GI bleed Consult cardiology and follow recommendation --Dementia, continue supportive care -- DVT prophylaxis Patient placed on sequential compression device. -- DNR: Discussed with the brother at the bedside today. family agreed for DNR and conservative medical management --Prognosis guarded Daily clinical course; 04/28/21: hold eliquis, cont to follow H/H, follow GI recommendation-plan for endoscopy tomorrow. will also consult cardiology to make recommendation for chronic anticoagulation use in the light of recurrent GI bleed. 04/29/21: Patient refused to take GoLYTELY last night. Did not have adequate prep for colonoscopy so GI canceled the procedure. Discussed with the brother at the bedside. Renal function is declining-patient placed on bicarbonate drip. We will transfer this patient to telemetry. Will start on clear liquid diet, if patient continues to have very poor p.o. intake will place on Dobbhoff tube. Continue to monitor BMP and H&H. Continue to hold Eliquis -as patient is no longer a anticoagulation candidate due to recurrent GI bleed and severe anemia per cardiology recommendation. Discussed with brother at the bedside. 04/30/12: Creatinine 3.4 today, potassium level improved. Patient remains lethargic with poor oral intake. Will place Dobbhoff tube with tube feeding. Continue D5 bicarbonate drip. Nephrology following, continue to monitor BMP. Discussed with brother at the bedside and updated with full details. 05/01/21; patient initiated on tube feeding, creatinine 3.7 today. Continue bicarbonate drip and monitor H&H. Patient mental status has not improved. CT head did not show any acute process but has chronic micro angiopathy. Continue to hold anticoagulation. Per RN patient did have small blood stained bowel movement. Continue PPI and continue to monitor. 05/02/21: Creatinine level increasing. Renal prognosis is guarded. Patient also placed on high flow O2 overnight. Brother at the bedside, discussed with him with all clinical details. Patient is critically ill with very poor prognosis. Patient remains altered and stuporous. CT head showed no acute process but chronic microangiopathic changes. This is a 70-year-old male with multiple medical condition including atrial fibrillation underlying dementia CKD diabetes mellitus and acute GI bleed. Family wish to proceed with DNR CODE STATUS. Continue conservative medical management. We will get repeat chest x-ray, will monitor ins and outs, follow 2D echo result. 05/03/2021; patient is on 40 L of high flow oxygen with FiO2 of 100%. Patient's prognosis is poor. Patient looks fluid overloaded and I give him a dose of Lasix. If no improvement hospice care may be appropriate. Earlier this morning patient was minimally responsive, labored breathing, was requiring 40 L of high flow oxygen with FiO2 40%. Patient's prognosis was very poor and family understand. Patient is DNR/DNI. Patient at 13:13. Procedures/treatments rendered: As stated above
== END 2021-05-03 18:40 | DRG 377 ==
LOC: ED 17:52 → CC1 22:36 → IMCU 23:23 → 4A 04-29 17:11
PROVIDERS: ADMIT Internal Medicine Geriatric Medicine; ATTEND Internal Medicine
PROC: 30233N1 Transfusion of Nonautologous Red Blood Cells into Peripheral Vein, Percutaneous Approach (ICD-10-PCS; principal; 2021-04-28)
PROC: 5A09457 Assistance with Respiratory Ventilation, 24-96 Consecutive Hours, Continuous Positive Airway Pressure (ICD-10-PCS; 2021-05-01)
DX: K92.2 Gastrointestinal hemorrhage, unspecified (principal); N17.0 Acute kidney failure with tubular necrosis; G93.41 Metabolic encephalopathy; J96.01 Acute respiratory failure with hypoxia; I13.0 Hypertensive heart and chronic kidney disease with heart failure and stage 1 through stage 4 chronic kidney disease, or unspecified chronic kidney disease; E87.2 Acidosis; I16.1 Hypertensive emergency; D62 Acute posthemorrhagic anemia; I48.20 Chronic atrial fibrillation, unspecified; E87.5 Hyperkalemia; N18.9 Chronic kidney disease, unspecified; I50.9 Heart failure, unspecified; I35.0 Nonrheumatic aortic (valve) stenosis; E11.51 Type 2 diabetes mellitus with diabetic peripheral angiopathy without gangrene; I25.10 Atherosclerotic heart disease of native coronary artery without angina pectoris; Z66 Do not resuscitate; M19.90 Unspecified osteoarthritis, unspecified site; E11.22 Type 2 diabetes mellitus with diabetic chronic kidney disease; F03.90 Unspecified dementia, unspecified severity, without behavioral disturbance, psychotic disturbance, mood disturbance, and anxiety; E11.40 Type 2 diabetes mellitus with diabetic neuropathy, unspecified; Z79.4 Long term (current) use of insulin; Z79.899 Other long term (current) drug therapy; Z88.5 Allergy status to narcotic agent; Z88.8 Allergy status to other drugs, medicaments and biological substances; Z89.511 Acquired absence of right leg below knee
CPT/HCPCS: 36415; 70450; 71045; 74018; 76770; 80048; 80053; 81001; 82140; 82570; 82962; 84300; 85025; 85610; 85730; 86850; 86900; 86901; 86920; 87086; 87641; 93306; 94660; 96365; 96375; G0378; C9113; J1200; J1630; J1815; J1940; J2060; J2270; J7030; J7040; J7050; J7070; P9016